=== PATIENT | male | born 1955 | race Caucasian/White ===

== ENCOUNTER 2017-10-27 20:59 | Emergency (ER) | payer SELFPAY ==
[~2017-10-27] VITALS: Ht 180.3 cm; Wt 96.0 kg
[2017-10-27 21:07] VITALS: BP 123/70; PULSE 110; RESP 20; TEMP 98.4; O2SAT 91
[2017-10-27] MEDS ORDERED: methylPREDNISolone SOD SUCC 125 MG/2 ML VIAL IV PUSH ONE (21:15)
[2017-10-27] MEDS ORDERED: SODIUM CHLORIDE 0.9% FLUSH 10 ML FLUSH IVF PRN (21:15)
--- NOTE | 2017-10-27 21:19 | PD ---
HPI Chief Complaint: Shortness of breath Time Seen by Provider: 21:09 Travel History International Travel<30 days: No Contact w/Intl Traveler<30days: No Traveled to known affect area: No History of Present Illness HPI The patient is a 62-year-old male who presents to the emergency department via EMS for shortness of breath. The patient recently relocated from [place] to [place], [place], and then [place], [place]. The patient has a history of COPD and CHF, was on oxygen via nasal cannula intermittently during the day and mostly at night when he was located in [place]. However, when he moved to [place] his oxygen prescription did not transfer. The patient states his baseline oxygen levels approximately 84% on room air during the day. He does note increasing shortness of breath the last several days associated with dry mostly nonproductive cough. He denies any significant edema to lower extremities or recent weight gain. He denies any known history of pulmonary embolism or DVT. He denies any recent hospitalizations, prolonged travel, or surgery in the last 3 months. He does have a history of previous intubation for COPD. He denies any fever, chills, or sweats. The patient is currently followed by his primary physician, Dr. summers as a med, however, does not have oxygen at home currently. Symptoms are moderate. PFSH Past Medical History Narrative Medical Hypertension, hyperlipidemia, diabetes, CAD, COPD, CHF, spinal stenosis with chronic back pain Past Surgical History Narrative Surgical Bilateral knee surgery, coronary stent Social History Tobacco Use: Yes Allergies-Medications (Allergen,Severity, Reaction): Coded Allergies: No Known Allergies (Unverified , 10/27/17) Review of Systems Except as stated in HPI: all other systems reviewed are Neg HENT: No: Lightheadedness Cardiovascular: Positive: Dyspnea on exertion, No: Chest Pain or Discomfort Respiratory: Positive: Cough, Shortness of Breath, Wheezing Gastrointestinal: No: Nausea, Vomiting, Abdominal Pain Musculoskeletal: No: Edema Physical Exam Narrative GENERAL: Awake, alert, pleasant 62-year-old male who appears his stated age and is in mild respiratory distress SKIN: Focused skin assessment warm/dry. HEAD: Atraumatic. Normocephalic. EYES: The patient is wearing glasses. ENT: No nasal bleeding or discharge. Mucous membranes pink and moist. NECK: Trachea midline. No JVD. CARDIOVASCULAR: Regular, tachycardic with a heart rate of 109. RESPIRATORY: Mild tachypnea with a respiratory rate of 24. Prolonged expiratory phase with scattered wheeze. GASTROINTESTINAL: Abdomen soft, non-tender, nondistended. No rebound tenderness. MUSCULOSKELETAL: No obvious deformities. No clubbing. No cyanosis. No edema. NEUROLOGICAL: Awake and alert. No obvious cranial nerve deficits. Motor grossly within normal limits. Normal speech. Nonfocal. PSYCHIATRIC: Appropriate mood and affect; insight and judgment normal. Data Data Last Documented VS Vital Signs Date Time Temp Pulse Resp B/P (MAP) Pulse Ox O2 Delivery O2 Flow Rate FiO2 10/27/17 21:40 92 Nasal Cannula 4.00 10/27/17 21:07 98.4 110 20 123/70 (87) Orders Orders Complete Blood Count With Diff (10/27/17 21:09) Comprehensive Metabolic Panel (10/27/17 21:09) B-Type Natriuretic Peptide (10/27/17 21:09) Act Partial Throm Time (Ptt) (10/27/17 21:09) Prothrombin Time / Inr (Pt) (10/27/17 21:09) Magnesium (Mg) (10/27/17 21:09) Ckmb (Isoenzyme) Profile (10/27/17 21:09) Troponin I (10/27/17 21:09) Iv Access Insert/Monitor (10/27/17 21:09) Electrocardiogram (10/27/17 21:09) Ecg Monitoring (10/27/17 21:09) Oximetry (10/27/17 21:09) Oxygen Administration (10/27/17 21:09) Chest, Single Ap (10/27/17 21:09) Sodium Chloride 0.9% Flush (Ns Flush) (10/27/17 21:15) Methylprednisolone So Succ Inj (Solumedr (10/27/17 21:15) Albuterol-Ipratropium Neb (Duoneb Neb) (10/27/17 21:15) CKMB (10/27/17 21:20) CKMB% (10/27/17 21:20) Labs Laboratory Tests Test 10/27/17 21:20 White Blood Count 9.7 TH/MM3 Red Blood Count 4.65 MIL/MM3 Hemoglobin 14.1 GM/DL Hematocrit 42.4 % Mean Corpuscular Volume 91.2 FL Mean Corpuscular Hemoglobin 30.3 PG Mean Corpuscular Hemoglobin Concent 33.2 % Red Cell Distribution Width 14.5 % Platelet Count 213 TH/MM3 Mean Platelet Volume 9.4 FL Neutrophils (%) (Auto) 76.9 % Lymphocytes (%) (Auto) 7.5 % Monocytes (%) (Auto) 14.1 % Eosinophils (%) (Auto) 0.7 % Basophils (%) (Auto) 0.8 % Neutrophils # (Auto) 7.4 TH/MM3 Lymphocytes # (Auto) 0.7 TH/MM3 Monocytes # (Auto) 1.4 TH/MM3 Eosinophils # (Auto) 0.1 TH/MM3 Basophils # (Auto) 0.1 TH/MM3 CBC Comment DIFF FINAL Differential Comment Prothrombin Time 10.8 SEC Prothromb Time International Ratio 1.1 RATIO Activated Partial Thromboplast Time 27.2 SEC Blood Urea Nitrogen 40 MG/DL Creatinine 1.94 MG/DL Random Glucose 140 MG/DL Total Protein 7.6 GM/DL Albumin 4.1 GM/DL Calcium Level 9.1 MG/DL Magnesium Level 2.0 MG/DL Alkaline Phosphatase 78 U/L Aspartate Amino Transf (AST/SGOT) 14 U/L Alanine Aminotransferase (ALT/SGPT) 12 U/L Total Bilirubin 0.2 MG/DL Sodium Level 141 MEQ/L Potassium Level 4.9 MEQ/L Chloride Level 102 MEQ/L Carbon Dioxide Level 31.7 MEQ/L Anion Gap 7 MEQ/L Estimat Glomerular Filtration Rate 35 ML/MIN Total Creatine Kinase 422 U/L Creatine Kinase MB 1.7 NG/ML Creatine Kinase MB % 0.4 % Troponin I LESS THAN 0.02 NG/ML B-Type Natriuretic Peptide 60 PG/ML MDM Medical Decision Making Medical Screen Exam Complete: Yes Emergency Medical Condition: Yes Medical Record Reviewed: Yes Interpretation(s) EKG reveals sinus tachycardia with heart rate of 109. RSR prime in V1. Q-wave noted in lead II, III, and aVF. Last Impressions Chest X-Ray 10/27/172108 Signed Impressions: Service Date/Time: October 21:44 - CONCLUSION: Mild bibasilar atelectasis. Andrae Curry MD Laboratory Tests Test 10/27/17 21:20 White Blood Count 9.7 TH/MM3 Red Blood Count 4.65 MIL/MM3 Hemoglobin 14.1 GM/DL Hematocrit 42.4 % Mean Corpuscular Volume 91.2 FL Mean Corpuscular Hemoglobin 30.3 PG Mean Corpuscular Hemoglobin Concent 33.2 % Red Cell Distribution Width 14.5 % Platelet Count 213 TH/MM3 Mean Platelet Volume 9.4 FL Neutrophils (%) (Auto) 76.9 % Lymphocytes (%) (Auto) 7.5 % Monocytes (%) (Auto) 14.1 % Eosinophils (%) (Auto) 0.7 % Basophils (%) (Auto) 0.8 % Neutrophils # (Auto) 7.4 TH/MM3 Lymphocytes # (Auto) 0.7 TH/MM3 Monocytes # (Auto) 1.4 TH/MM3 Eosinophils # (Auto) 0.1 TH/MM3 Basophils # (Auto) 0.1 TH/MM3 CBC Comment DIFF FINAL Differential Comment Prothrombin Time 10.8 SEC Prothromb Time International Ratio 1.1 RATIO Activated Partial Thromboplast Time 27.2 SEC Blood Urea Nitrogen 40 MG/DL Creatinine 1.94 MG/DL Random Glucose 140 MG/DL Total Protein 7.6 GM/DL Albumin 4.1 GM/DL Calcium Level 9.1 MG/DL Magnesium Level 2.0 MG/DL Alkaline Phosphatase 78 U/L Aspartate Amino Transf (AST/SGOT) 14 U/L Alanine Aminotransferase (ALT/SGPT) 12 U/L Total Bilirubin 0.2 MG/DL Sodium Level 141 MEQ/L Potassium Level 4.9 MEQ/L Chloride Level 102 MEQ/L Carbon Dioxide Level 31.7 MEQ/L Anion Gap 7 MEQ/L Estimat Glomerular Filtration Rate 35 ML/MIN Total Creatine Kinase 422 U/L Creatine Kinase MB 1.7 NG/ML Creatine Kinase MB % 0.4 % Troponin I LESS THAN 0.02 NG/ML B-Type Natriuretic Peptide 60 PG/ML Differential Diagnosis Differential diagnosis includes COPD exacerbation, bronchitis, pneumonia, pulmonary embolism, acute coronary syndrome, congestive heart failure, pulmonary edema, pleural effusion. Narrative Course IV was established, labs are drawn and sent, the patient was placed on cardiac telemetry monitoring and continuous pulse oximetry monitoring. Chest x-ray is obtained. EKG was ordered and interpreted. The patient was administered Solu- Medrol 125 mg intravenously duo nebs 3. Chest x-ray reveals bibasilar atelectasis, otherwise unremarkable. Creatinine is mildly elevated at 1.94, patient does state he has a history of mild kidney disease, does not know his baseline creatinine. Patient symptomatically felt better after oxygen and duo nebs. I had a discussion with the patient regarding admission for his hypoxia with his COPD exacerbation. However, the patient's daughter who is at bedside states the patient has an appointment with his primary physician, Dr. Perry Millard , tomorrow at 11:30 AM. I recommended admission, however, patient would prefer to be discharged. I will write for prednisone, Zithromax, and albuterol nebulizers. He does have a nebulizer machine at home. He does agree to return if his symptoms worsen or progress. Diagnosis Primary Impression: COPD exacerbation Additional Impression: Hypoxia Patient Instructions: General Instructions Additional Instructions: Please provide the patient a copy of his x-ray results and lab results at discharge. Return immediately if symptoms worsen or progress or you change your mind regarding admission. Follow-up with her doctor tomorrow as scheduled to obtain home oxygen. Med/Other Pt SpecificInfo: Prescription(s) given Scripts Albuterol Neb (Albuterol Neb) 2.5 Mg/3 Ml Neb 2.5 MG NEB Q4HR NEB Y for SHORTNESS OF BREATH, #60 NEBULE 0 Refills Prov: Angel Luis Sanderson MD 10/27/17 Prednisone (Prednisone) 20 Mg Tab 40 MG PO DAILY for 5 Days, #10 TAB 0 Refills Take 40 mg (2 tablets) daily for 5 days Prov: Angel Luis Sanderson MD 10/27/17 Azithromycin (Zithromax Z-Rupesh) 250 Mg Dspk 250 MG PO DIRECTED for Infection, #1 DSPK 0 Refills 500 MG (2 tabs) day 1, then 1 tab days 2-5. Prov: Angel Luis Sanderson MD 10/27/17 Disposition: 01 DISCHARGE HOME Condition: Stable Angel Luis Sanderson MD Oct 27, 2017 21:19
[2017-10-27 21:30] VITALS: BP 111/85; PULSE 104; RESP 20; O2SAT 91
[2017-10-27 21:40] VITALS: O2SAT 92
[2017-10-27] MEDS: RESP: ALBUTEROL 2.5 MG/IPRATROPIUM 0.5 MG NEB (SCH) INH ×2 (21:40→21:41)
[2017-10-27 22:01] LABS: AUTOMATED NEUTROPHIL # 7.4 TH/MM3 (1.8-7.7); BASOPHIL # 0.1 TH/MM3 (0-0.2); BASOPHIL % 0.8 % (0.0-2.0); EOSINOPHIL # 0.1 TH/MM3 (0-0.4); EOSINOPHIL % 0.7 % (0.0-4.0); HEMATOCRIT 42.4 % (39.0-51.0); HEMOGLOBIN 14.1 GM/DL (13.0-17.0); LYMPH % 7.5 % (9.0-44.0); LYMPHOCYTE # 0.7 TH/MM3 (1.0-4.8); MEAN CELL VOLUME 91.2 FL (80.0-100.0); MEAN CORPUSCULAR HEMOGLOBIN 30.3 PG (27.0-34.0); MEAN CORPUSCULAR HGB CONC 33.2 % (32.0-36.0); MEAN PLATELET VOLUME 9.4 FL (7.0-11.0); MONO % 14.1 % (0.0-8.0); MONOCYTE # 1.4 TH/MM3 (0-0.9); NEUT % 76.9 % (16.0-70.0); PLATELET COUNT 213 TH/MM3 (150-450); RED BLOOD COUNT 4.65 MIL/MM3 (4.50-5.90); RED CELL DISTRIBUTION WIDTH 14.5 % (11.6-17.2); WHITE BLOOD COUNT 9.7 TH/MM3 (4.0-11.0)
--- NOTE | 2017-10-27 22:10 | RADRPT ---
EXAM DATE/TIME: 10/27/2017 21:44 [facility] COMPARISON: No previous studies available for comparison. INDICATIONS : Short of breath. MEDICAL HISTORY : Cerebrovascular disease. Congestive heart failure. SURGICAL HISTORY : None. ENCOUNTER: Initial ACUITY: 2 days PAIN SCORE: 0/10 LOCATION: Bilateral chest FINDINGS: There is mild atelectasis at both bases. No pleural effusion. No pneumothorax. Heart size upper limit s of normal. CONCLUSION: Mild bibasilar atelectasis. Andrae Curry MD on October 27, 2017 at 22:07 Board Certified Radiologist. This report was verified electronically.
[2017-10-27 22:17] LABS: INTERNATIONAL NORMALIZED RATIO 1.1 RATIO; PROTHROMBIN TIME - PATIENT 10.8 SEC (9.8-11.6)
[2017-10-27 22:19] LABS: ALBUMIN 4.1 GM/DL (3.4-5.0); AST (GOT) 14 U/L (15-37); BICARBONATE 31.7 MEQ/L (21.0-32.0); BLOOD UREA NITROGEN 40 MG/DL (7-18); CALCIUM 9.1 MG/DL (8.5-10.1); CHLORIDE 102 MEQ/L (98-107); CREATININE 1.94 MG/DL (0.60-1.30); GLOMERULAR FILTRATION RATE 35 ML/MIN (>89); GLUCOSE,RANDOM 140 MG/DL (74-106); SODIUM (NA) 141 MEQ/L (136-145)
[2017-10-27 22:20] LABS: ALT (GPT) 12 U/L (12-78)
[2017-10-27 22:24] LABS: ALKALINE PHOSPHATASE 78 U/L (45-117); TOTAL BILIRUBIN ADULT 0.2 MG/DL (0.2-1.0); TOTAL PROTEIN 7.6 GM/DL (6.4-8.2); TROPONIN I LESS THAN 0.02 NG/ML (0.02-0.05)
[2017-10-27] MEDS ORDERED: TIZA4TAB PO (22:39)
[2017-10-27] MEDS ORDERED: HYDR-3583 PO (22:39)
[2017-10-27] MEDS ORDERED: MELO15TA20 PO (22:39)
[2017-10-27] MEDS ORDERED: LISI40TA PO (22:39)
[2017-10-27] MEDS ORDERED: METF1000 PO (22:39)
[2017-10-27] MEDS ORDERED: FURO80TA PO (22:39)
[2017-10-27] MEDS ORDERED: MORP1TAB25 PO (22:39)
[2017-10-27] MEDS ORDERED: AMLO10TA2 PO (22:39)
[2017-10-27] MEDS ORDERED: TAMS0.4C4 PO (22:39)
[2017-10-27] MEDS ORDERED: GABA300C5 PO (22:39)
[2017-10-27] MEDS ORDERED: METO100T PO (22:39)
[2017-10-27] MEDS ORDERED: PRED20 PO (22:41)
[2017-10-27] MEDS ORDERED: ZITHTAB PO (22:41)
[2017-10-27] MEDS ORDERED: ALBU0.08 NEB (22:41)
[2017-10-27 22:42] VITALS: BP 120/64
--- NOTE | 2017-10-28 13:28 | EKG ---
Date Performed: 10/27/2017 Time Performed: 21:12:23 PTAGE: 62 years EKG: SINUS TACHYCARDIA POSSIBLE LEFT ATRIAL ENLARGEMENT PATTERN CONSISTENT WITH PULMONARY DISEAS E POSSIBLE RIGHT VENTRICULAR CONDUCTION DELAY LEFT VENTRICULAR HYPERTROPHY AND ST-T CHANGE INFERIOR M YOCARDIAL INFARCTION NO PREVIOUS TRACING DOCTOR: Todd Steiner Interpretating Date/Time 10/28/2017 13:27:54
== END 2017-10-27 22:58 | disposition home or self-care (01) ==
LOC: NEPC 20:59
DX: J44.1 Chronic obstructive pulmonary disease with (acute) exacerbation (principal); R09.02 Hypoxemia; R00.0 Tachycardia, unspecified; I51.7 Cardiomegaly; I25.2 Old myocardial infarction; I10 Essential (primary) hypertension; E78.5 Hyperlipidemia, unspecified; E11.9 Type 2 diabetes mellitus without complications; I25.10 Atherosclerotic heart disease of native coronary artery without angina pectoris
CPT/HCPCS: 71045; 80053; 82550; 82552; 83735; 83880; 84484; 85025; 85610; 85730; 93005; 94640; 94664; 96374; 99285; J2930

== ENCOUNTER 2017-10-30 13:42 | Inpatient (IN) | payer SELFPAY ==
[2017-10-30] VITALS (15 sets, daily range): BP systolic 98–128; BP diastolic 53–59; PULSE 62–77; RESP 16–40; TEMP 97.8–99.1; O2SAT 90–99
[~2017-10-30] VITALS: Ht 180.3 cm; Wt 101.9 kg
[~2017-10-30 13:42] MED LIST: ALBU0.08 NEB; AMLO10TA2 PO; FURO80TA PO; GABA300C5 PO; HYDR-3583 PO; LISI40TA PO; MELO15TA20 PO; METF1000 PO; METO100T PO; MORP1TAB25 PO; PRED20 PO; TAMS0.4C4 PO; TIZA4TAB PO; ZITHTAB PO
[2017-10-30] MEDS ORDERED: RESP: ALBUTEROL 2.5 MG/IPRATROPIUM 0.5 MG NEB (SCH) INH (13:45)
[2017-10-30] MEDS ORDERED: methylPREDNISolone SOD SUCC 125 MG/2 ML VIAL IV PUSH ONE (13:45)
[2017-10-30] MEDS ORDERED: SODIUM CHLORIDE 0.9% FLUSH 10 ML FLUSH IVF PRN (13:45)
[2017-10-30 14:06] LABS: AUTOMATED NEUTROPHIL # 14.8 TH/MM3 (1.8-7.7); BASOPHIL # 0.1 TH/MM3 (0-0.2); BASOPHIL % 0.3 % (0.0-2.0); HEMATOCRIT 43.5 % (39.0-51.0); HEMOGLOBIN 13.8 GM/DL (13.0-17.0); LYMPH % 4.6 % (9.0-44.0); LYMPHOCYTE # 0.8 TH/MM3 (1.0-4.8); MEAN CELL VOLUME 92.9 FL (80.0-100.0); MEAN CORPUSCULAR HEMOGLOBIN 29.4 PG (27.0-34.0); MEAN CORPUSCULAR HGB CONC 31.6 % (32.0-36.0); MEAN PLATELET VOLUME 8.9 FL (7.0-11.0); MONO % 9.1 % (0.0-8.0); MONOCYTE # 1.6 TH/MM3 (0-0.9); PLATELET COUNT 238 TH/MM3 (150-450); RED BLOOD COUNT 4.69 MIL/MM3 (4.50-5.90); RED CELL DISTRIBUTION WIDTH 14.7 % (11.6-17.2); WHITE BLOOD COUNT 17.2 TH/MM3 (4.0-11.0)
--- NOTE | 2017-10-30 14:24 | PD ---
HPI . Altered mental status Chief Complaint: Respiratory Distress Time Seen by Provider: 13:44 Travel History International Travel<30 days: No Contact w/Intl Traveler<30days: No Traveled to known affect area: No History of Present Illness HPI This patient is brought to us by [facility] with altered mental status. He was recently seen here and diagnosed with bronchitis and discharged on Zithromax, prednisone and albuterol. That was on October 27. Yesterday, family started noticing change in mental status. He started having urinary incontinence. His symptoms progressed and worsened causing them to call [facility] today. The patient is unable to give any meaningful history. The patient's daughter is now at the bedside and reports that the patient has a DNR. COUNT INCLUDES THE [facility] Past Medical History Cardiac Catheterization: Yes (1 stent ) Cardiovascular Problems: Yes High Cholesterol: Yes Congestive Heart Failure: Yes COPD: Yes Coronary Artery Disease: Yes Diabetes: Yes Patient Takes Glucophage: No Diminished Hearing: No Hypertension: Yes Respiratory: Yes Triglycerides - High: Yes Tetanus Vaccination: Unknown Past Surgical History Joint Replacement: Yes (Agustín knees) Social History Alcohol Use: No Tobacco Use: Yes (1 PPD) Substance Use: No Allergies-Medications (Allergen,Severity, Reaction): Coded Allergies: No Known Allergies (Unverified , 10/30/17) Reported Meds & Prescriptions Reported Meds & Active Scripts Active Albuterol Neb (Albuterol Sulfate) 2.5 Mg/3 Ml Neb 2.5 Mg NEB Q4HR NEB PRN Prednisone 20 Mg Tab 40 Mg PO DAILY 5 Days Take 40 mg (2 tablets) daily for 5 days Zithromax Z-Rupesh (Azithromycin) 250 Mg Dspk 250 Mg PO DIRECTED 500 MG (2 tabs) day 1, then 1 tab days 2-5. Reported Furosemide 80 Mg Tab 120 Mg PO DAILY Gabapentin 300 Mg Cap 300 Mg PO TID Tizanidine (Tizanidine HCl) 4 Mg Tab 4 Mg PO TID Meloxicam 15 Mg Tab 15 Mg PO DAILY Tamsulosin (Tamsulosin HCl) 0.4 Mg Cap 0.4 Mg PO DAILY Hydrocodone-Acetamin 10-325 mg (Hydrocodone/Acetaminophen) 10 Mg-325 Mg Tablet 1 Tab PO Q6HR PRN Metformin (Metformin HCl) 1,000 Mg Tab 1,000 Mg PO DAILY Amlodipine (Amlodipine Besylate) 10 Mg Tab 10 Mg PO DAILY Metoprolol Tartrate 100 Mg Tab 100 Mg PO BID Morphine ER (Morphine Sulfate) 30 Mg Tab 30 Mg PO BID Lisinopril 40 Mg Tab 40 Mg PO DAILY Review of Systems ROS Limitations: Altered Mental Status Physical Exam Narrative GENERAL: Patient is not verbal. SKIN: warm/dry. Normal color. HEAD: Normocephalic. Atraumatic. EYES: Pupils equal and round. No scleral icterus. No injection or drainage. ENT: No nasal bleeding or discharge. Mucous membranes pink and moist. NECK: Supple. CARDIOVASCULAR: Regular rate and rhythm. RESPIRATORY: He is using accessory muscles to breathe. His breath sounds are markedly diminished. GASTROINTESTINAL: Abdomen soft. Nontender. Bowel sounds present. Nondistended. MUSCULOSKELETAL: No obvious deformities. NEUROLOGICAL: No obvious lateralizing neurological deficits PSYCHIATRIC: Unable to assess Data Data Last Documented VS Vital Signs Date Time Temp Pulse Resp B/P (MAP) Pulse Ox O2 Delivery O2 Flow Rate FiO2 10/30/17 14:30 94 40 10/30/17 14:23 BiPAP 10/30/17 14:00 8.00 10/30/17 13:52 40 10/30/17 13:49 99.1 72 106/55 (72) Orders Orders Complete Blood Count With Diff (10/30/17 13:45) Comprehensive Metabolic Panel (10/30/17 13:45) B-Type Natriuretic Peptide (10/30/17 13:45) Magnesium (Mg) (10/30/17 13:45) Troponin I (10/30/17 13:45) Arterial Blood Gas (Abg) (10/30/17 13:45) Blood Culture (10/30/17 13:45) Iv Access Insert/Monitor (10/30/17 13:45) Electrocardiogram (10/30/17 13:45) Ecg Monitoring (10/30/17 13:45) Oximetry (10/30/17 13:45) Oxygen Administration (10/30/17 13:45) Chest, Single Ap (10/30/17 13:45) Sodium Chloride 0.9% Flush (Ns Flush) (10/30/17 13:45) Methylprednisolone So Succ Inj (Solumedr (10/30/17 13:45) Albuterol-Ipratropium Neb (Duoneb Neb) (10/30/17 13:45) Lactic Acid (10/30/17 13:45) Resp Bipap / Cpap Non Invas Vt (10/30/17 ) Etomidate Inj (Amidate Inj) (10/30/17 14:30) Succinylcholine Inj (Quelicin Inj) (10/30/17 14:30) Code Status (10/30/17 14:50) Insulin Human Regular Inj (Novolin R Inj (10/30/17 16:15) Dextrose 50% In Sherlyn (Syr) Inj (D50w (Syr (10/30/17 16:15) Sodium Bicarbonate 8.4% Inj (Sodium Bica (10/30/17 16:15) Calcium Chloride Inj (Calcium Chloride I (10/30/17 16:15) Basic Metabolic Panel (Bmp) (10/30/17 17:00) Arterial Blood Gas (Abg) (10/30/17 17:00) Consult Nephrology (10/30/17 ) Admit Order (Ed Use Only) (10/30/17 ) Wire Bender / Telemetry [id number].[id number] (10/30/17 16:46) Vital Signs (Adult) Q4H (10/30/17 16:46) Diet Npo (10/30/17 Dinner) Activity Bed Rest (10/30/17 16:46) Notify Dr: Other (10/30/17 16:46) Sodium Polysty Sulfate Liq (Kayexalate L (10/30/17 17:00) Labs Laboratory Tests Test 10/30/17 13:50 10/30/17 14:06 10/30/17 15:00 White Blood Count 17.2 TH/MM3 Red Blood Count 4.69 MIL/MM3 Hemoglobin 13.8 GM/DL Hematocrit 43.5 % Mean Corpuscular Volume 92.9 FL Mean Corpuscular Hemoglobin 29.4 PG Mean Corpuscular Hemoglobin Concent 31.6 % Red Cell Distribution Width 14.7 % Platelet Count 238 TH/MM3 Mean Platelet Volume 8.9 FL Neutrophils (%) (Auto) 86.0 % Lymphocytes (%) (Auto) 4.6 % Monocytes (%) (Auto) 9.1 % Eosinophils (%) (Auto) 0.0 % Basophils (%) (Auto) 0.3 % Neutrophils # (Auto) 14.8 TH/MM3 Lymphocytes # (Auto) 0.8 TH/MM3 Monocytes # (Auto) 1.6 TH/MM3 Eosinophils # (Auto) 0.0 TH/MM3 Basophils # (Auto) 0.1 TH/MM3 CBC Comment DIFF FINAL Differential Comment Lactic Acid Level 0.9 mmol/L B-Type Natriuretic Peptide 36 PG/ML Blood Gas Puncture Site RT BRACHIAL Blood Gas Patient Temperature 98.6 Blood Gas HCO3 30 mmol/L Blood Gas Base Excess 0.8 mmol/L Blood Gas Oxygen Saturation 96 % Arterial Blood pH 7.12 Arterial Blood Partial Pressure CO2 96 mmHg Arterial Blood Partial Pressure O2 131 mmHG Arterial Blood Oxygen Content 18.7 Vol % Arterial Blood Carboxyhemoglobin 0.9 % Arterial Blood Methemoglobin 1.1 % Blood Gas Hemoglobin 13.7 G/DL Oxygen Delivery Device AEROSOL MASK Blood Gas Liter Flow 7 L/M Blood Gas Inspired Oxygen 50 % Blood Urea Nitrogen 89 MG/DL Creatinine 3.63 MG/DL Random Glucose 152 MG/DL Total Protein 7.7 GM/DL Albumin 3.7 GM/DL Calcium Level 8.2 MG/DL Magnesium Level 2.7 MG/DL Alkaline Phosphatase 71 U/L Aspartate Amino Transf (AST/SGOT) 19 U/L Alanine Aminotransferase (ALT/SGPT) 17 U/L Total Bilirubin 0.5 MG/DL Sodium Level 139 MEQ/L Potassium Level 7.5 MEQ/L Chloride Level 104 MEQ/L Carbon Dioxide Level 29.6 MEQ/L Anion Gap 5 MEQ/L Estimat Glomerular Filtration Rate 17 ML/MIN Troponin I LESS THAN 0.02 NG/ML MDM Medical Decision Making Medical Screen Exam Complete: Yes Emergency Medical Condition: Yes Medical Record Reviewed: Yes (Medical history of COPD, CHF, HTN, HL, DM, CAD status post a stent.) Interpretation(s) EKG shows a sinus rhythm with no acute ischemic changes Differential Diagnosis Differential diagnosis of dyspnea includes but is not limited to congestive heart failure, pneumonia, wheezing, pneumothorax, pulmonary embolism Narrative Course This patient presented to us by [facility] in respiratory distress and altered mental status. A blood gas was ordered. He is in respiratory failure with CO2 retention and a PCO2 of 98. I was explaining to the daughter that we needed to intubate the patient when she told me that he has a DNR. She is currently giving information to her sister so that she can fax us his DNR. In the meantime, he is receiving stacked nebs. He has had Solu-Medrol. We will attempt BiPAP. I did receive a fax from his daughter confirming that she is his healthcare POA. This has been placed in his chart. The daughter at the bedside is calling her sister for further documentation regarding the DNR. The patient is improving with BiPAP. Last Impressions Chest X-Ray 10/30/17 1345 Signed Impressions: Service Date/Time: Monday, October 30, 2017 13:49 - CONCLUSION: Cardiomegaly. Andrae Burgess MD ABG Test 10/30/17 14:06 Arterial Blood Carboxyhemoglobin 0.9 % Arterial Blood Methemoglobin 1.1 % Arterial Blood Oxygen Content 18.7 Vol % Arterial Blood Partial Pressure CO2 96 mmHg *H Arterial Blood Partial Pressure O2 131 mmHG H Arterial Blood pH 7.12 *L Blood Gas Base Excess 0.8 mmol/L Blood Gas HCO3 30 mmol/L H Blood Gas Hemoglobin 13.7 G/DL Blood Gas Inspired Oxygen 50 % Blood Gas Liter Flow 7 L/M Blood Gas Oxygen Saturation 96 % Oxygen Delivery Device AEROSOL MASK BMP Diagram 10/30/17 15:00 Total Protein 7.7, Albumin 3.7, Calcium Level 8.2 L, Magnesium Level 2.7 H, Alkaline Phosphatase 71, Aspartate Amino Transf (AST/SGOT) 19, Alanine Aminotransferase (ALT/SGPT) 17, Total Bilirubin 0.5 The geoscience laboratory technician assures me that his specimen is not hemolyzed. He does have renal failure so this potassium level makes sense. I have subsequently ordered insulin and D50, bicarb, Kayexalate. He has already received nebulizer treatments. CBC Diagram 10/30/17 13:50 Lactic acid level 0.9 BNP 36. Troponin less than 0.02. The patient's daughters will discuss whether or not they feel that he would want dialysis. They will let me know shortly. The family reports that they would want at least short-term dialysis. I will place a stat consult for nephrology. Critical Care Narrative Aggregate critical care time was 45 minutes. Time to perform other separately billable procedures was not included in the critical care time. My time did not include minutes spent treating any other patients simultaneously or on activities that did not directly contribute to the patient's treatment. The services I provided to this patient were to treat and/or prevent clinically significant deterioration due to respiratory failure, hyperkalemia I provided critical care services requiring my management, as noted below: Chart data review, documentation time, medication orders and management, vital sign assessments/reviewing monitor data, ordering and reviewing lab tests, ordering and interpreting/reviewing x-rays and diagnostic studies, care of the patient and discussion of the patient with the admitting physicians Physician Communication Physician Communication Dr. Armenta Diagnosis Primary Impression: Altered mental status Qualified Codes: R40.4 - Transient alteration of awareness Additional Impressions: Respiratory failure Qualified Codes: J96.02 - Acute respiratory failure with hypercapnia DNR (do not resuscitate) Acute on chronic renal failure Qualified Codes: N17.9 - Acute kidney failure, unspecified; N18.4 - Chronic kidney disease, stage 4 (severe) Hyperkalemia Admitting Information Admitting Physician Requests: Admit Condition: Serious Amie Sanchez MD Oct 30, 2017 14:24
[2017-10-30] MEDS ORDERED: SUCCINYLCHOLINE CHLORIDE 100 MG/5 ML SYRINGE IV PUSH ONE (14:30)
[2017-10-30] MEDS ORDERED: ETOMIDATE 20 MG/10 ML VIAL IV PUSH ONE (14:30)
--- NOTE | 2017-10-30 15:05 | RADRPT ---
EXAM DATE/TIME: 10/30/2017 13:49 [facility] COMPARISON: CHEST SINGLE AP, October 27, 2017, 21:44. INDICATIONS : Short of breath MEDICAL HISTORY : Cerebrovascular disease. Congestive heart failure SURGICAL HISTORY : None. ENCOUNTER: Initial ACUITY: 1 day PAIN SCORE: Non-responsive. LOCATION: chest FINDINGS: A single view of the chest demonstrates the lungs to be symmetrically aerated without evidence of mas s, infiltrate or effusion. The heart size is mildly enlarged. Osseous structures are intact. CONCLUSION: Cardiomegaly. Andrae Burgess MD on October 30, 2017 at 15:02 Board Certified Radiologist. This report was verified electronically.
[2017-10-30 15:57] LABS: ALBUMIN 3.7 GM/DL (3.4-5.0); ALKALINE PHOSPHATASE 71 U/L (45-117); ALT (GPT) 17 U/L (12-78); AST (GOT) 19 U/L (15-37); BICARBONATE 29.6 MEQ/L (21.0-32.0); BLOOD UREA NITROGEN 89 MG/DL (7-18); CALCIUM 8.2 MG/DL (8.5-10.1); CHLORIDE 104 MEQ/L (98-107); CREATININE 3.63 MG/DL (0.60-1.30); GLOMERULAR FILTRATION RATE 17 ML/MIN (>89); GLUCOSE,RANDOM 152 MG/DL (74-106); MAGNESIUM 2.7 MG/DL (1.5-2.5); SODIUM (NA) 139 MEQ/L (136-145); TOTAL BILIRUBIN ADULT 0.5 MG/DL (0.2-1.0); TOTAL PROTEIN 7.7 GM/DL (6.4-8.2); TROPONIN I LESS THAN 0.02 NG/ML (0.02-0.05)
[2017-10-30] MEDS ORDERED: INSULIN HUMAN REGULAR 1,000 UNITS/10 ML VIAL IV PUSH ONE (16:15)
[2017-10-30] MEDS ORDERED: CALCIUM CHLORIDE 10% SOLN 1 GRAM/10 ML SYR IV PUSH ONE (16:15)
[2017-10-30] MEDS ORDERED: SODIUM BICARBONATE 8.4% INJ 50 MEQ/50 ML SYR IV PUSH ONE (16:15)
[2017-10-30] MEDS ORDERED: SODIUM POLYSTYRENE SULFONATE 30 GM/120 ML ENEMA RECTAL ONE ×2 (16:15→16:45)
[2017-10-30] MEDS ORDERED: DEXTROSE 50% IN WATER 50 ML SYRINGE IV PUSH ONE (16:15)
[2017-10-30] MEDS ORDERED: SODIUM POLYSTYRENE SULFONATE SUSP 15 GM/60 ML CUP RECTAL ONE ×2 (17:00→17:15)
[2017-10-30] MEDS ORDERED: CHLORHEXIDINE GLUCONATE 2 % 1 PACK (2 CLOTHS) TOP PRN (17:15)
[2017-10-30] MEDS ORDERED: NURSING INFORMATION XX SCH (17:15)
--- NOTE | 2017-10-30 17:24 | HHI.HP ---
HPI Service Critical Care Medicine Primary Care Physician Unknown Admission Diagnosis Acute resp failure, acute on chronic RF, hyperkalemia Diagnosis: Chief Complaint: Altered mental status and respiratory distress Travel History International Travel<30 Days: No Contact w/Intl Traveler <30 Da: No Traveled to Known Affected Are: No History of Present Illness 62-year-old gentleman with history of COPD on home O2, congestive heart failure , hypertension, CAD, spinal stenosis now now brought to the emergency room with altered mental status and respiratory distress. Patient presented on October 27 to [facility] emergency with worsening shortness of breath. He was found to have acute COPD exacerbation but patient declined admission. He was treated with prednisone and azithromycin and bronchodilators and he was discharged home. Over the last few days patient had worsening shortness of breath associated with cough and since yesterday patient became increasingly lethargic. Over the night patient became very poorly responsive therefore today daughter called EVAC patient was brought to the emergency room. On ED arrival patient was unresponsive. Blood gas done showed severe respiratory acidosis. Moreover, patient was found to have acute hyperkalemia and acute kidney injury, potassium up to 7.5. Patient was treated with Solu-Medrol, DuoNeb, insulin and dextrose, Kayexalate, calcium gluconate and bicarbonate. Stat consult for nephrology was placed in ED physician is waiting for callback. [facility] was consulted for ICU admission. Patient was not intubated because he has a standing DNR. Patient was immediately seen in the emergency room, daughter present at bedside. Patient is on BiPAP, arousable, following some commands. Per daughter, patient has a standing DNR/DNI and her sister who has POA was contacted by emergency room physician to complete the DNR form. Review of Systems ROS Limitations: Altered Mental Status Past Family Social History Allergies: Coded Allergies: No Known Allergies (Unverified , 10/30/17) Past Medical History COPD on home O2, congestive heart failure, hypertension, CAD, spinal stenosis Past Surgical History Unobtainable due to patient's mental status Reported Medications Reported Meds & Active Scripts Active Albuterol Neb (Albuterol Sulfate) 2.5 Mg/3 Ml Neb 2.5 Mg NEB Q4HR NEB PRN Prednisone 20 Mg Tab 40 Mg PO DAILY 5 Days Take 40 mg (2 tablets) daily for 5 days Zithromax Z-Rupesh (Azithromycin) 250 Mg Dspk 250 Mg PO DIRECTED 500 MG (2 tabs) day 1, then 1 tab days 2-5. Reported Furosemide 80 Mg Tab 120 Mg PO DAILY Gabapentin 300 Mg Cap 300 Mg PO TID Tizanidine (Tizanidine HCl) 4 Mg Tab 4 Mg PO TID Meloxicam 15 Mg Tab 15 Mg PO DAILY Tamsulosin (Tamsulosin HCl) 0.4 Mg Cap 0.4 Mg PO DAILY Hydrocodone-Acetamin 10-325 mg (Hydrocodone/Acetaminophen) 10 Mg-325 Mg Tablet 1 Tab PO Q6HR PRN Metformin (Metformin HCl) 1,000 Mg Tab 1,000 Mg PO DAILY Amlodipine (Amlodipine Besylate) 10 Mg Tab 10 Mg PO DAILY Metoprolol Tartrate 100 Mg Tab 100 Mg PO BID Morphine ER (Morphine Sulfate) 30 Mg Tab 30 Mg PO BID Lisinopril 40 Mg Tab 40 Mg PO DAILY Active Ordered Medications Current Medications Medications (Trade) Dose Ordered Sig/Kaila Route Start Time Stop Time Status Last Admin (NS Flush) 2 ml UNSCH PRN IVF 10/30/17 13:45 Sodium Chloride 1,000 ml @ 100 mls/hr Q10H IV 10/30/17 17:13 UNV (Pepcid Inj) 20 mg Q12HR IV PUSH 10/30/17 21:00 UNV (Duoneb Neb) 1 ampule Q4HR NEB INH 10/30/17 20:00 UNV (Heparin Inj) 5,000 units Q12H SQ 10/30/17 17:15 UNV ([facility]) 1 Q361D XX 10/30/17 17:15 UNV (Chlorhexidine 2% Cloth) 3 pack Taper DAILY@04 TOP 10/31/17 04:00 10/27/18 03:59 UNV (Chlorhexidine 2% Cloth) 3 pack UNSCH PRN TOP 10/30/17 17:15 UNV (SoluMEDROL INJ) 60 mg Q6HR IV PUSH 10/30/17 18:00 UNV Azithromycin 500 mg/Sodium Chloride 250 ml @ 250 mls/hr Q24H IV 10/30/17 17:30 UNV Ceftriaxone Sodium 1000 mg/ Sodium Chloride 100 ml @ 200 mls/hr Q24H IV 10/30/17 17:30 UNV Sodium Chloride 1,000 ml @ 999 mls/hr BOLUS ONCE IV 10/30/17 17:30 10/30/17 18:30 UNV Family History Unobtainable due to patient's mental status Social History Her daughter patient was a smoker but he quit 2 weeks ago, used to drink alcohol but not anymore, no drugs Physical Exam Vital Signs Vital Signs Date Time Temp Pulse Resp B/P (MAP) Pulse Ox O2 Delivery O2 Flow Rate FiO2 10/30/17 17:00 66 28 98/53 (68) 94 BiPAP 50 10/30/17 16:00 66 30 111/53 (72) 93 BiPAP 40 10/30/17 15:00 64 20 109/56 (73) 92 BiPAP 40 10/30/17 14:30 94 40 10/30/17 14:23 BiPAP 10/30/17 14:00 62 28 104/56 (72) 97 BiPAP 40 10/30/17 14:00 Aerosol Mask 8.00 10/30/17 13:52 97 Aerosol Mask 10/30/17 13:52 40 97 Aerosol Mask 7.00 40 10/30/17 13:49 99.1 72 40 106/55 (72) 97 Physical Exam General - middle-aged gentleman, lethargic, arousable, ill-appearing HEENT - pupils equal, reactive, sclerae anicteric, neck supple, no nuchal rigidity, neck veins not distended, no carotid bruit CV - irregular S1, S2, systolic ejection murmur at the apex Chest -scattered coarse breath sounds bilateral, scattered wheezes Abdomen - soft, non-tender, non-distended, BS present, no hepatomegaly, no splenomegaly Skin - no rashes, no cyanosis, multiple tattoos Extremities - warm and well perfused, no edema, + peripheral pulses, no clubbing Neuro - lethargic but arousable, follows some commands, moves all extremities Laboratory Laboratory Tests Test 10/30/17 13:50 10/30/17 14:06 10/30/17 15:00 White Blood Count 17.2 Red Blood Count 4.69 Hemoglobin 13.8 Hematocrit 43.5 Mean Corpuscular Volume 92.9 Mean Corpuscular Hemoglobin 29.4 Mean Corpuscular Hemoglobin Concent 31.6 Red Cell Distribution Width 14.7 Platelet Count 238 Mean Platelet Volume 8.9 Neutrophils (%) (Auto) 86.0 Lymphocytes (%) (Auto) 4.6 Monocytes (%) (Auto) 9.1 Eosinophils (%) (Auto) 0.0 Basophils (%) (Auto) 0.3 Neutrophils # (Auto) 14.8 Lymphocytes # (Auto) 0.8 Monocytes # (Auto) 1.6 Eosinophils # (Auto) 0.0 Basophils # (Auto) 0.1 CBC Comment DIFF FINAL Differential Comment Lactic Acid Level 0.9 B-Type Natriuretic Peptide 36 Blood Gas Puncture Site RT BRACHIAL Blood Gas Patient Temperature 98.6 Blood Gas HCO3 30 Blood Gas Base Excess 0.8 Blood Gas Oxygen Saturation 96 Arterial Blood pH 7.12 Arterial Blood Partial Pressure CO2 96 Arterial Blood Partial Pressure O2 131 Arterial Blood Oxygen Content 18.7 Arterial Blood Carboxyhemoglobin 0.9 Arterial Blood Methemoglobin 1.1 Blood Gas Hemoglobin 13.7 Oxygen Delivery Device AEROSOL MASK Blood Gas Liter Flow 7 Blood Gas Inspired Oxygen 50 Blood Urea Nitrogen 89 Creatinine 3.63 Random Glucose 152 Total Protein 7.7 Albumin 3.7 Calcium Level 8.2 Magnesium Level 2.7 Alkaline Phosphatase 71 Aspartate Amino Transf (AST/SGOT) 19 Alanine Aminotransferase (ALT/SGPT) 17 Total Bilirubin 0.5 Sodium Level 139 Potassium Level 7.5 Chloride Level 104 Carbon Dioxide Level 29.6 Anion Gap 5 Estimat Glomerular Filtration Rate 17 Troponin I LESS THAN 0.02 Date/Time Source Procedure Growth Status 10/30/17 13:55 Blood Peripheral Aerobic Blood Culture Pending Received 10/30/17 13:55 Blood Peripheral Anaerobic Blood Culture Pending Received Result Diagram: 10/30/17 1350 10/30/17 1500 Imaging Last Impressions Chest X-Ray 10/30/17 1345 Signed Impressions: Service Date/Time: Monday, October 30, 2017 13:49 - CONCLUSION: Cardiomegaly. MD Brett Harrisi VTE Risk Assessment Caprini VTE Risk Assessment: Mod/High Risk (score >= 2) Caprini Risk Assessment Model Point Value = 1 Point Value = 2 Point Value = 3 Point Value = 5 Age 41-60 Minor surgery BMI > 25 kg/m2 Swollen legs Varicose veins or History of unexplained or recurrent spontaneous Oral contraceptives or hormone replacement Sepsis (< 1 month) Serious lung disease, including pneumonia (< 1 month) Abnormal pulmonary function Acute myocardial infarction Congestive heart failure (< 1 month) History of inflammatory bowel disease Medical patient at bed rest Age 61-74 Arthroscopic surgery Major open surgery (> 45 min) Laparoscopic surgery (> 45 min) Malignancy Confined to bed (> 72 hours) Immobilizing plaster cast Central venous access Age >= 75 History of VTE Family history of VTE Factor V Leiden Prothrombin [id number] Lupus anticoagulant Anticardiolipin antibodies Elevated serum homocysteine Heparin-induced thrombocytopenia Other congenital or acquired thrombophilia Stroke (< 1 month) Elective arthroplasty Hip, pelvis, or leg fracture Acute spinal cord injury (< 1 month) Prophylaxis Regimen Total Risk Factor Score Risk Level Prophylaxis Regimen 0-1 Low Early ambulation 2 Moderate Order ONE of the following: *Sequential Compression Device (SCD) *Heparin 5000 units SQ BID 3-4 Higher Order ONE of the following medications: *Heparin 5000 units SQ TID *Enoxaparin/Lovenox 40 mg SQ daily (WT < 150 kg, CrCl > 30 mL/min) *Enoxaparin/Lovenox 30 mg SQ daily (WT < 150 kg, CrCl > 10-29 mL/min) *Enoxaparin/Lovenox 30 mg SQ BID (WT < 150 kg, CrCl > 30 mL/min) AND/OR *Sequential Compression Device (SCD) 5 or more Highest Order ONE of the following medications: *Heparin 5000 units SQ TID (Preferred with Epidurals) *Enoxaparin/Lovenox 40 mg SQ daily (WT < 150 kg, CrCl > 30 mL/min) *Enoxaparin/Lovenox 30 mg SQ daily (WT < 150 kg, CrCl > 10-29 mL/min) *Enoxaparin/Lovenox 30 mg SQ BID (WT < 150 kg, CrCl > 30 mL/min) AND *Sequential Compression Device (SCD) Assessment and Plan Assessment and Plan 1. Acute hypercapnic respiratory failure 2. Acute COPD exacerbation 3. Acute hyperkalemia 4. Acute kidney injury 5. History of CAD with stent placement 6. History of hypertension 7. History of spinal stenosis on chronic opiates 1. Continue BiPAP, settings readjusted, BiPAP increased to 15, FiO2 decreased to 0.4 2. Start Solu-Medrol 60 mg every 6 hours and scheduled bronchodilators every 4 hours 3. Empiric ceftriaxone and azithromycin 4. Immediate nephrology consult for possible hemodialysis 5. Patient received medical management for hyperkalemia and repeat potassium at 6 PM 6. Repeat ABG now 7. Serial cardiac enzymes 8. Hold pain medication in the setting of poor mental status 9. Fluid bolus followed by IV hydration 10. Check lactic acid since patient was on metformin now has AARON 11. GI and DVT prophylaxis 12. DNR per patient's wishes expressed by daughter 13. NPO 14. Insert Toney catheter for accurate urine output measurement I spent 32 minutes of critical care time, excluding procedures, managing BiPAP, fluids, antibiotics, steroids, reviewing data and ordering labs, discussing with ED attending, nursing staff, RT, daughter present at bedside. Patient is critically ill and at high risk for further deterioration and . Ernesto Armenta MD Oct 30, 2017 17:24
[2017-10-30] MEDS ORDERED: SODIUM CHLOR 0.9% 1000 ML INJ 1,000 ML IV ONE (17:30)
[2017-10-30 18:35] LABS: CREATININE 3.72 MG/DL (0.60-1.30)
[2017-10-30] MEDS: methylPREDNISolone SOD SUCC 40 MG/1 ML VIAL IV PUSH SCH (18:39)
[2017-10-30] MEDS: HEPARIN SODIUM - SQ 10,000 UNITS/ML VIAL SQ SCH (18:40)
[2017-10-30] MEDS: RESP: ALBUTEROL 2.5 MG/IPRATROPIUM 0.5 MG NEB (SCH) INH ×2 (19:35→23:36)
[2017-10-30] MEDS: FAMOTIDINE 20 MG/2 ML VIAL IV PUSH SCH (20:11)
[2017-10-30] MEDS: AZITHROMYCIN INJ 500 MG in SODIUM CHLOR 0.9% 250 ML INJ 250 ML IV SCH (20:11)
[2017-10-30] MEDS: cefTRIAXone INJ 1,000 MG in SODIUM CHLORIDE 0.9% INJ 100 ML IV SCH (20:11)
[2017-10-30 20:52] LABS: BILIRUBIN, URINE NEG (NEG); BLOOD, URINE NEG (NEG); GLUCOSE,URINE NEG (NEG); HYALINE CAST, URINE 20 /lpf (RARE); KETONE, URINE NEG (NEG); MUCUS URINE FEW /lpf (OCC); NITRITE,URINE NEG (NEG); SQUAMOUS EPITHELIAL CELL URINE 1 /hpf (0-5); URINE COLOR YELLOW (YELLW/STRAW); URINE LEUKOCYTE ESTERASE NEG (NEG)
[2017-10-30 21:05] LABS: CREATININE, RANDOM URINE 185.1 MG/DL
[2017-10-30] MEDS ORDERED: INSULIN HUMAN REGULAR 1,000 UNITS/10 ML VIAL IV PUSH SCH (21:45)
[2017-10-30] MEDS ORDERED: DEXTROSE 50% IN WATER 50 ML VIAL(D50) IV SCH (21:45)
[2017-10-30] MEDS: SODIUM POLYSTYRENE SULFONATE SUSP 15 GM/60 ML CUP PO SCH (22:00)
[2017-10-30] MEDS: SODIUM CHLOR 0.9% 1000 ML INJ 1,000 ML IV SCH (22:21)
[2017-10-31] VITALS (29 sets, daily range): BP systolic 110–167; BP diastolic 56–73; PULSE 69–110; RESP 15–24; TEMP 98.2–99.7; O2SAT 87–96
--- NOTE | 2017-10-31 00:03 | RADRPT ---
EXAM DATE/TIME: 10/30/2017 23:32 [facility] COMPARISON: No previous studies available for comparison. INDICATIONS : Acute kidney injury. MEDICAL HISTORY : Congestive heart failure. Hypercholesterolemia. Hypertension. Coronary artery disease. Hyperlipidemia . COPD. Diabetes. Tobacco use. SURGICAL HISTORY : Coronary artery stent. Cardiac cath. Bilateral knee replacements. ENCOUNTER: Initial ACUITY: 1 day PAIN SCORE: Nonresponsive. LOCATION: Bilateral flank MEASUREMENTS: RIGHT KIDNEY: 11.6 x 4.5 x 5.4 cm LEFT KIDNEY: 9.3 x 5.4 x 6.0 cm FINDINGS: RIGHT KIDNEY: Renal cortex is normal in thickness and echotexture. No hydronephrosis, stone, or mass. LEFT KIDNEY: Renal cortex is normal in thickness and echotexture. No hydronephrosis, stone, or mass. BLADDER: Completely decompressed. CONCLUSION: 1. Both kidneys are sonographically normal. 2. Bladder is decompressed. Talon May MD on October 31, 2017 at 0:00 Board Certified Radiologist. This report was verified electronically.
[2017-10-31] MEDS: methylPREDNISolone SOD SUCC 40 MG/1 ML VIAL IV PUSH SCH ×5 (00:18→23:33)
[2017-10-31 00:30] LABS: BICARBONATE 26.9 MEQ/L (21.0-32.0); BLOOD UREA NITROGEN 99 MG/DL (7-18); CALCIUM 8.4 MG/DL (8.5-10.1); CHLORIDE 105 MEQ/L (98-107); CREATININE 3.42 MG/DL (0.60-1.30); GLOMERULAR FILTRATION RATE 18 ML/MIN (>89); GLUCOSE,RANDOM 192 MG/DL (74-106); SODIUM (NA) 140 MEQ/L (136-145); TROPONIN I LESS THAN 0.02 NG/ML (0.02-0.05)
[2017-10-31] MEDS ORDERED: FUROSEMIDE 100 MG/10 ML VIAL IV PUSH ONE (01:15)
[2017-10-31] MEDS ORDERED: DEXTROSE 50% IN WATER 50 ML VIAL(D50) IV ONE ×2 (01:15→05:00)
[2017-10-31] MEDS ORDERED: INSULIN HUMAN REGULAR 1,000 UNITS/10 ML VIAL IV PUSH ONE ×2 (01:15→05:00)
[2017-10-31] MEDS: SODIUM POLYSTYRENE SULFONATE SUSP 15 GM/60 ML CUP PO SCH ×2 (02:00)
--- NOTE | 2017-10-31 02:07 | RADRPT ---
EXAM DATE/TIME: 10/31/2017 01:43 [facility] COMPARISON: No previous studies available for comparison. INDICATIONS : Nasogastric tube placement. MEDICAL HISTORY : Congestive heart failure. Hypercholesterolemia. Hypertension. Hyperlipidemia. COPD. Diabetes SURGICAL HISTORY : Coronary artery stent. Total knee replacement, right. Total knee replacement, left. ENCOUNTER: Initial ACUITY: 2 days PAIN SCORE: Non-responsive. LOCATION: Bilateral Abdomen FINDINGS: Supine view of the abdomen was performed. The abdominal bowel gas pattern is normal. Nasogastric tu be is identified in the left upper abdominal quadrant. No abnormal masses, calcifications, or organom egaly is seen. The osseous structures are unremarkable with some degenerative spurring of the thorac olumbar spine. CONCLUSION: 1. Nasogastric type tube the tip projecting in the left upper abdominal quadrant in the expected loca tion of the gastric lumen. 2. Nonobstructive bowel gas pattern Talon May MD on October 31, 2017 at 2:03 Board Certified Radiologist. This report was verified electronically.
[2017-10-31] MEDS: SODIUM POLYSTYRENE SULFONATE SUSP 15 GM/60 ML CUP NG SCH ×3 (02:13→06:15)
[2017-10-31] MEDS: RESP: ALBUTEROL 2.5 MG/IPRATROPIUM 0.5 MG NEB (SCH) INH ×5 (03:04→19:51)
[2017-10-31] MEDS: CHLORHEXIDINE GLUCONATE 2 % 1 PACK (2 CLOTHS) TOP SCH (04:00)
[2017-10-31 04:18] LABS: AUTOMATED NEUTROPHIL # 13.8 TH/MM3 (1.8-7.7); BASOPHIL % 0.1 % (0.0-2.0); HEMATOCRIT 42.6 % (39.0-51.0); HEMOGLOBIN 13.3 GM/DL (13.0-17.0); LYMPH % 5.1 % (9.0-44.0); LYMPHOCYTE # 0.8 TH/MM3 (1.0-4.8); MEAN CELL VOLUME 94.6 FL (80.0-100.0); MEAN CORPUSCULAR HEMOGLOBIN 29.5 PG (27.0-34.0); MEAN CORPUSCULAR HGB CONC 31.2 % (32.0-36.0); MEAN PLATELET VOLUME 9.2 FL (7.0-11.0); MONO % 5.5 % (0.0-8.0); MONOCYTE # 0.8 TH/MM3 (0-0.9); NEUT % 89.3 % (16.0-70.0); PLATELET COUNT 221 TH/MM3 (150-450); RED CELL DISTRIBUTION WIDTH 15.3 % (11.6-17.2); WHITE BLOOD COUNT 15.5 TH/MM3 (4.0-11.0)
[2017-10-31 04:41] LABS: ALBUMIN 3.4 GM/DL (3.4-5.0); ALKALINE PHOSPHATASE 79 U/L (45-117); ALT (GPT) 24 U/L (12-78); AST (GOT) 23 U/L (15-37); BLOOD UREA NITROGEN 97 MG/DL (7-18); CALCIUM 8.5 MG/DL (8.5-10.1); CHLORIDE 104 MEQ/L (98-107); CREATININE 3.45 MG/DL (0.60-1.30); GLOMERULAR FILTRATION RATE 18 ML/MIN (>89); GLUCOSE,RANDOM 195 MG/DL (74-106); PHOSPHORUS 8.7 MG/DL (2.5-4.9); SODIUM (NA) 140 MEQ/L (136-145); TOTAL BILIRUBIN ADULT 0.3 MG/DL (0.2-1.0); TOTAL PROTEIN 7.2 GM/DL (6.4-8.2)
[2017-10-31] MEDS ORDERED: SODIUM BICARBONATE 8.4% INJ 50 MEQ/50 ML SYR IV PUSH ONE (05:00)
[2017-10-31] MEDS: HEPARIN SODIUM - SQ 10,000 UNITS/ML VIAL SQ SCH ×2 (05:04→17:57)
[2017-10-31] MEDS ORDERED: HEPARIN SODIUM - IV 10,000 UNITS/10 ML VIAL ONE (05:32)
--- NOTE | 2017-10-31 06:19 | PD.PROCEDR ---
Procedure Note Procedure Preop diagnosis: Acute on chronic respiratory failure, acute renal failure, hyperkalemia Postop diagnosis: Same Informed consent: Obtained from family and documented on chart Anesthesia: 1% lidocaine for local infiltration anesthesia Procedure: dialysis catheter placement Site: Left femoral vein Ultrasound guidance : No After sterile prepping and draping using 1% lidocaine for local infiltration anesthesia, left femoral vein was cannulated using an introducer needle with dark nonpulsatile blood return. A Guidewire was passed through the introducer needle without any resistance and the needle was then removed. After making a skin neck and dilation of tract, a 14 [place] dual lumen dialysis catheter was passed over the guidewire by modified seldinger's technique into the left femoral vein and the guidewire was then removed. Good blood return obtained through both ports which were then flushed with saline and subsequently hep- locked. After suturing the catheter in place, a Bio-occlusive dressing with biopatch was applied to the site. Patient tolerated the procedure well with no immediate complications noted. Geovany Gallo MD Oct 31, 2017 06:19
--- NOTE | 2017-10-31 07:29 | RADRPT ---
EXAM DATE/TIME: 10/31/2017 06:56 [facility] COMPARISON: ABDOMEN KUB ONLY, October 31, 2017, 1:43. INDICATIONS : Post vascath placement left femoral MEDICAL HISTORY : Congestive heart failure. Hypertension Chronic obstructive pulmonary disease. diabetic SURGICAL HISTORY : Coronary artery stent. bilateral knee replacements ENCOUNTER: Subsequent ACUITY: 3 days PAIN SCORE: Non-responsive. LOCATION: Bilateral abdomen FINDINGS: Supine view of the abdomen was performed. There is an NG tube in place with the tip in the upper sto mach. There is a left femoral vein catheter present. There is increased density seen at the lung base s bilaterally. The bowel gas pattern is unremarkable. The osseous structures are unremarkable. CONCLUSION: 1. Left femoral vein catheter with the tip overlying the left pelvis in the expected region of the ex ternal iliac vein. 2. NG tube in the upper stomach. 3. Bibasilar areas of consolidation or atelectasis. Andrae Burgess MD on October 31, 2017 at 7:23 Board Certified Radiologist. This report was verified electronically.
[2017-10-31 07:54] LABS: HEMATOCRIT 42.4 % (39.0-51.0); HEMOGLOBIN 13.2 GM/DL (13.0-17.0); MEAN CELL VOLUME 95.1 FL (80.0-100.0); MEAN CORPUSCULAR HEMOGLOBIN 29.6 PG (27.0-34.0); MEAN CORPUSCULAR HGB CONC 31.1 % (32.0-36.0); MEAN PLATELET VOLUME 9.4 FL (7.0-11.0); PLATELET COUNT 232 TH/MM3 (150-450); RED BLOOD COUNT 4.46 MIL/MM3 (4.50-5.90); RED CELL DISTRIBUTION WIDTH 15.2 % (11.6-17.2)
[2017-10-31 08:12] LABS: BICARBONATE 31.7 MEQ/L (21.0-32.0); CALCIUM 8.5 MG/DL (8.5-10.1); CREATININE 3.56 MG/DL (0.60-1.30); MAGNESIUM 2.9 MG/DL (1.5-2.5)
[2017-10-31 08:15] LABS: PHOSPHORUS 8.4 MG/DL (2.5-4.9)
--- NOTE | 2017-10-31 09:02 | HHI.CCPN ---
Subjective Remarks/Hospital Course 10/30: 62-year-old gentleman with history of COPD on home O2, congestive heart failure, hypertension, CAD, spinal stenosis now now brought to the emergency room with altered mental status and respiratory distress. Patient presented on October 27 to [facility] emergency with worsening shortness of breath. He was found to have acute COPD exacerbation but patient declined admission. He was treated with prednisone and azithromycin and bronchodilators and he was discharged home. Over the last few days patient had worsening shortness of breath associated with cough and since yesterday patient became increasingly lethargic. Over the night patient became very poorly responsive therefore today daughter called EVAC patient was brought to the emergency room. On ED arrival patient was unresponsive. Blood gas done showed severe respiratory acidosis. Moreover, patient was found to have acute hyperkalemia and acute kidney injury, potassium up to 7.5. Patient was treated with Solu- Medrol, DuoNeb, insulin and dextrose, Kayexalate, calcium gluconate and bicarbonate. Stat consult for nephrology was placed in ED physician is waiting for callback. [facility] was consulted for ICU admission. Patient was not intubated because he has a standing DNR. Patient was immediately seen in the emergency room, daughter present at bedside. Patient is on BiPAP, arousable, following some commands. Per daughter, patient has a standing DNR/DNI and her sister who has POA was contacted by emergency room physician to complete the DNR form. 10/31: Over the night the patient was transitioned to facemask with subsequent worsening and hypercapnia, then placed back on BiPAP. Currently patient on BiPAP 15/5 at 55% O2. Patient is arousable but does not follow commands. Due to elevated potassium despite medical measures and HD catheter was placed and patient will undergo emergent hemodialysis. ROS: Unobtainable due to patient's mental status Objective Vital Signs Date Time Temp Pulse Resp B/P (MAP) Pulse Ox O2 Delivery O2 Flow Rate FiO2 10/31/17 08:39 93 BiPAP 50 10/31/17 06:00 83 10/31/17 04:11 11.00 10/31/17 03:00 98.2 16 125/61 (82) Intake and Output 10/31/17 10/31/17 11/01/17 08:00 16:00 00:00 Intake Total 0 ml Output Total 675 ml Balance -675 ml Result Diagram: 10/31/17 0720 10/31/17 0720 Other Results Blood cultures are pending Laboratory Tests Test 10/30/17 14:06 10/30/17 18:00 10/31/17 05:22 Blood Gas Puncture Site RT BRACHIAL RT RADIAL RT RADIAL Blood Gas Patient Temperature 98.6 98.6 98.6 Blood Gas HCO3 30 mmol/L (22-26) 30 mmol/L (22-26) 31 mmol/L (22-26) Blood Gas Base Excess 0.8 mmol/L (-2-2) 1.9 mmol/L (-2-2) 1.3 mmol/L (-2-2) Blood Gas Oxygen Saturation 96 % (90-100) 89 % (90-100) 95 % (90-100) Arterial Blood pH 7.12 (7.380-7.420) 7.16 (7.380-7.420) 7.05 (7.380-7.420) Arterial Blood Partial Pressure CO2 96 mmHg (38-42) 88 mmHg (38-42) 120 mmHg (38-42) Arterial Blood Partial Pressure O2 131 mmHG (61-120) 69 mmHg (61-120) 112 mmHg (61-120) Arterial Blood Oxygen Content 18.7 Vol % (12.0-20.0) 17.3 Vol % (12.0-20.0) 17.7 Vol % (12.0-20.0) Arterial Blood Carboxyhemoglobin 0.9 % (0-4) 1.1 % (0-4) 0.6 % (0-4) Arterial Blood Methemoglobin 1.1 % (0-2) 1.4 % (0-2) 2.0 % (0-2) Blood Gas Hemoglobin 13.7 G/DL (12.0-16.0) 13.8 G/DL (12.0-16.0) 13.2 G/DL (12.0-16.0) Oxygen Delivery Device AEROSOL MASK BiPAP PRB MASK Blood Gas Liter Flow 7 L/M 11 L/M Blood Gas Inspired Oxygen 50 % 40 % Blood Gas Ventilator Setting [id number] Imaging Last Impressions Chest X-Ray 10/30/17 1345 Signed Impressions: Service Date/Time: Monday, October 30, 2017 13:49 - CONCLUSION: Cardiomegaly. Andrae Burgess MD Objective Remarks General - middle-aged gentleman, lethargic, arousable, ill-appearing HEENT - pupils are equal, reactive, sclerae are anicteric, neck is supple, no rigidity, no JVD, no carotid bruit CV - irregular heart sound, systolic ejection murmur at the apex Chest - coarse breath sounds bilateral, scattered wheezes, decreased air entry Abdomen - soft, not distended, non-tender, BS present, no hepatomegaly, no splenomegaly Skin - no rashes, no cyanosis, multiple tattoos Extremities - warm, no edema, + peripheral pulses, no clubbing Neuro - lethargic but arousable, does not follow commands A/P Assessment and Plan 1. Acute hypercapnic respiratory failure -worsening 2. Acute COPD exacerbation 3. Acute hyperkalemia -potassium remains elevated 4. Acute kidney injury -had 650 mL of urine output since admission 5. History of CAD with stent placement 6. History of hypertension 7. History of spinal stenosis on chronic opiates 1. Continue BiPAP, settings readjusted, IPAP increased to 20, FiO2 decreased to 0.5, respiratory therapist asked to readjust the mask to improve the seal 2. Continue Solu-Medrol 60 mg every 6 hours and scheduled bronchodilators every 4 hours 3. Empiric ceftriaxone and azithromycin 4. Nephrology consult called, HD catheter has been placed, patient will undergo emergent HD 5. Repeat potassium post HD 6. Repeat ABG now 7. Palliative consult 8. Hold pain medication in the setting of poor mental status 9. GI and DVT prophylaxis 10. DNR per patient's wishes expressed by daughter 11. NPO No family present at bedside. Patient is critically ill and at high risk for further deterioration and . Ernesto Armenta MD Oct 31, 2017 09:02
[2017-10-31] MEDS ORDERED: SODIUM CHLOR 0.9% 1000 ML INJ 1,000 ML IV PRN (09:35)
[2017-10-31] MEDS ORDERED: SODIUM CHLOR 0.9% 1000 ML INJ 1,000 ML OTHER PRN ×2 (09:35→10:00)
[2017-10-31] MEDS ORDERED: NITROGLYCERIN 0.4 MG SL 25 TABS/BTL SL PRN (09:45)
[2017-10-31] MEDS ORDERED: MANNITOL 12.5 GM/50 ML VIAL IV PRN (09:45)
[2017-10-31] MEDS ORDERED: GELATIN 12 MM/7 MM FOAM TOP PRN (09:45)
[2017-10-31] MEDS ORDERED: SODIUM CHLORIDE 0.9% FLUSH 10 ML FLUSH IV FLUSH PRN (09:45)
[2017-10-31] MEDS ORDERED: GENTAMICIN SULFATE 20 MG/2 ML VIAL OTHER PRN (09:45)
[2017-10-31] MEDS ORDERED: ONDANSETRON HCL 4 MG/2 ML VIAL IV PUSH PRN (09:45)
[2017-10-31] MEDS ORDERED: ALBUMIN 25% INJ 100 ML IV PRN (09:45)
[2017-10-31] MEDS ORDERED: cloNIDine HCL 0.1 MG TAB PO PRN (09:45)
[2017-10-31] MEDS ORDERED: diphenhydrAMINE HCL 25 MG CAP PO PRN (09:45)
[2017-10-31] MEDS ORDERED: HEPARIN SODIUM - IV 10,000 UNITS/10 ML VIAL PRN (09:45)
[2017-10-31] MEDS ORDERED: HEPARIN SODIUM - IV 10,000 UNITS/10 ML VIAL IV FLUSH PRN (09:45)
[2017-10-31] MEDS ORDERED: ACETAMINOPHEN 325 MG TAB PO PRN (09:45)
--- NOTE | 2017-10-31 11:01 | PD.CONS ---
Consult Service Palliative Care Consult Requested By Dr. Armenta . Primary Care Physician Dr. Perry Millard . Reason for Consultation a. To assist with evaluation and management of symptoms including: Dyspnea, altered mental status, Pain b. To assist medical decision maker(s) with: better understanding of current medical conditions; weighing benefits/burdens of medical treatment options; making medical treatment decisions. HPI History of Present Illness This is a 62-year-old male who has a history of COPD, CAD, DM, hypertension, dyslipidemia, osteoarthritis, degenerative disc disease, fibromyalgia, Lyme disease and CHF with intermittent oxygen dependency, and recently moved from [place] to [place], [place] where he spent most of last year and suffered several hospitalizations, the last of which was in May 2017. He was hospitalized in early April prior to that with substance abuse issues and at that time stopped using the significant amount of alcohol that he had previously been indulging in. He subsequently underwent detox and rehab and his daughter reports that he denies any further alcohol or substance abuse since that time. He and his daughter Mercy, then moved to [place] . He was seen in the emergency room 10/27/17 for a complaint of dyspnea and dry, nonproductive cough and diagnosed with COPD exacerbation/bronchitis. In spite of a recommendation for admission, the patient chose to go home with Zithromax, prednisone and albuterol nebulizers and follow-up with his primary care doctor the following day. He was brought back to the emergency room 10/30 with altered mental status. he was unable to provide any history. History was obtained from his daughter's, Mercy and Gemma ED course: * Laboratory: ABG pH 7.12, PCO2 96, PO2 131, bicarbonate 30, base excess +0.8, saturation 96% on 50% FiO2, WBC 17.2, hemoglobin 13.8, hematocrit 43.5, platelets 238, B natruretic peptide 36, lactic acid 0.9, sodium 139, potassium 7.5, BUN 89, creatinine 3.63. Blood cultures were drawn. * Radiology: Chest x-ray showed cardiomegaly. Renal ultrasound showed sonographically normal kidneys bilaterally and a decompressed bladder. Abdomen x-ray showed left femoral vein catheter with the tip overlying the left pelvis in the expected region of the external iliac vein. NG tube in the upper stomach. Bibasilar areas of consolidation or atelectasis. Repeat abdomen x- ray after NG tube advancement showed to be in the expected location of the gastric lumen with nonobstructive bowel gas pattern. Consults were placed for palliative care and nephrology secondary to his acute renal failure. On 10/27 visit to the ED, his BUN was 40 and creatinine 1.94. On this admission, 3 days later BUN had risen to 89 and creatinine 3.63. IV rehydration with sodium chloride was initiated at 100 mL/h. He is undergoing emergent dialysis or severe hyperkalemia and acute renal failure. He has previously seen Dr. Nunez and is in process of being worked up for spinal surgery secondary to his severe, chronic pain. He sees Dr. Berger at [facility] for frequent epidurals. He has established with Dr. Perry Millard for primary care. . Function/Cognitive Trajectory He has had multiple episodes of COPD exacerbations, was intubated twice in the past and after that said he did not wish to be reintubated any longer. 5 years ago he was actually withdrawn from the ventilator and then survived. His daughter states he has had at least 7 exacerbations over the last few years but has never deteriorated to the point of needing dialysis before. She states that he is able to drive, although his daughter Mercy states that she drives him most of the time, cooks his own meals, gets around with an electric scooter but has severely debilitating back pain. Due to insurance restrictions he has been going through insurance driven protocols with an end goal of having surgery to relieve the pain in his back. His trajectory has been a series of frequent declines with recovery to near, but not reaching, baseline. Given his long history of chronic pain he is likely to continue to suffer frequent exacerbations and debility. . Review of Systems ROS Limitations: Clinical Condition (Patient is nonverbal and unable to provide their own ROS. 10 part ROS taken as best as possible from medical record and available family.), Altered Mental Status Constitutional: COMPLAINS OF: Pain Respiratory: COMPLAINS OF: Shortness of breath Psychiatric: COMPLAINS OF: Confusion (Patient wanted to) Past Family Social History Coded Allergies: No Known Allergies (Unverified , 10/30/17) Past Medical History COPD on home O2 intermittently Congestive heart failure of unknown type Hypertension Coronary artery disease status post stent placement Diabetes Spinal stenosis Dyslipidemia Lyme's disease Osteoarthritis Degenerative disc disease Fibromyalgia . Past Surgical History Bilateral knee replacement Multiple steroid injections Intubation 2 . Reported Medications Reported Meds & Active Scripts Active Albuterol Neb (Albuterol Sulfate) 2.5 Mg/3 Ml Neb 2.5 Mg NEB Q4HR NEB PRN Prednisone 20 Mg Tab 40 Mg PO DAILY 5 Days Take 40 mg (2 tablets) daily for 5 days Zithromax Z-Rupesh (Azithromycin) 250 Mg Dspk 250 Mg PO DIRECTED 500 MG (2 tabs) day 1, then 1 tab days 2-5. Reported Furosemide 80 Mg Tab 120 Mg PO DAILY Gabapentin 300 Mg Cap 300 Mg PO TID Tizanidine (Tizanidine HCl) 4 Mg Tab 4 Mg PO TID Meloxicam 15 Mg Tab 15 Mg PO DAILY Tamsulosin (Tamsulosin HCl) 0.4 Mg Cap 0.4 Mg PO DAILY Hydrocodone-Acetamin 10-325 mg (Hydrocodone/Acetaminophen) 10 Mg-325 Mg Tablet 1 Tab PO Q6HR PRN Metformin (Metformin HCl) 1,000 Mg Tab 1,000 Mg PO DAILY Amlodipine (Amlodipine Besylate) 10 Mg Tab 10 Mg PO DAILY Metoprolol Tartrate 100 Mg Tab 100 Mg PO BID Morphine ER (Morphine Sulfate) 30 Mg Tab 30 Mg PO BID Lisinopril 40 Mg Tab 40 Mg PO DAILY . Current Medications Medications (Trade) Dose Ordered Sig/Kaila Route Start Time Stop Time Status Last Admin (NS Flush) 2 ml UNSCH PRN IVF 10/30/17 13:45 Sodium Chloride 1,000 ml @ 100 mls/hr Q10H IV 10/30/17 17:13 10/30/17 22:21 (Pepcid Inj) 20 mg Q12HR IV PUSH 10/30/17 21:00 10/30/17 20:11 (Duoneb Neb) 1 ampule Q4HR NEB INH 10/30/17 20:00 10/31/17 08:36 (Heparin Inj) 5,000 units Q12H SQ 10/30/17 17:15 10/31/17 05:04 ([facility] [place] [facility]) 1 [id number] XX 10/30/17 17:15 (Chlorhexidine 2% Cloth) 3 pack Taper DAILY@04 TOP 10/31/17 04:00 10/27/18 03:59 10/31/17 04:00 (Chlorhexidine 2% Cloth) 3 pack UNSCH PRN TOP 10/30/17 17:15 (SoluMEDROL INJ) 60 mg Q6HR IV PUSH 10/30/17 18:00 10/31/17 05:03 Azithromycin 500 mg/Sodium Chloride 250 ml @ 250 mls/hr Q24H IV 10/30/17 19:00 10/30/17 20:11 Ceftriaxone Sodium 1000 mg/ Sodium Chloride 100 ml @ 200 mls/hr Q24H IV 10/30/17 20:00 10/30/17 20:11 Sodium Chloride 1,000 ml @ 0 mls/hr Q0M PRN OTHER 10/31/17 09:35 (Heparin Inj) 8,000 units UNSCH PRN IV FLUSH 10/31/17 09:45 Sodium Chloride 1,000 ml @ 200 mls/hr Q5H PRN IV 10/31/17 09:35 Sodium Chloride 1,000 ml @ 0 mls/hr Q0M PRN OTHER 10/31/17 10:00 (Mannitol Inj) 12.5 gm UNSCH PRN IV 10/31/17 09:45 Albumin Human 100 ml @ 60 mls/hr UNSCH PRN IV 10/31/17 09:45 (NS Flush) 5 ml UNSCH PRN IV FLUSH 10/31/17 09:45 (Heparin Inj) UNSCH PRN .XX 10/31/17 09:45 (Gentamicin Inj) 20 mg UNSCH PRN OTHER 10/31/17 09:45 (Zofran Inj) 4 mg UNSCH PRN IV PUSH 10/31/17 09:45 (Tylenol) 650 mg UNSCH PRN PO 10/31/17 09:45 (Benadryl) 25 mg UNSCH PRN PO 10/31/17 09:45 (Nitrostat Sl) 0.4 mg UNSCH PRN SL 10/31/17 09:45 (Catapres) 0.1 mg UNSCH PRN PO 10/31/17 09:45 (Gelfoam 12 Mm/7 Mm Top) 1 foam UNSCH PRN TOP 10/31/17 09:45 Family History Family history is positive for stroke in his father and anxiety and back pain in his mother. Both are , father at 64 and mother at 80. He has 3 living daughters in good health. . Substance Use Tobacco: Chronic smoker of one pack per day. Alcohol: Heavy use prior to April 2017 when he went through rehab. Prescription med abuse: History of opiate abuse in his younger years. Prescribed opiates for pain management at this time with no recent abuse Illicits: History of cocaine use, street opiates in his younger years. None recent. . 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 He was and had 3 daughters, Gemma Thomson and Mercy. He is currently . He was not in the service. . 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 . Living Will: Never completed Health Care Surrogate: Copy in medical record Durable Power of Compliance Program Manager: Never completed Date completed: Form completed, but undated. . Health Care Surrogate(s): He names his daughter Alix Scruggs as his primary healthcare decision maker with his daughter Gemma oMnroe as his alternate. . Documented care wishes: No living will available. . Today's verbally stated goals: Patient on BiPAP with altered mental status, unable to express his goals. . Family/friends goals: In discussions with his daughters, Gemma and Mercy, they state that the patient did not want to ever be intubated again and would prefer to pass naturally and that his daughters are in agreement with his goals. They also state that under no circumstances would, but are they want him to have physical restraints in favor of chemical restraints if needed. They do not wish him to live in an uncomfortable or dependent state and would support short-term rehabilitation if appropriate. . Ethical and Legal Issues None noted. . Physical Exam Vital Signs Date Time Temp Pulse Resp B/P (MAP) Pulse Ox O2 Delivery O2 Flow Rate FiO2 10/31/17 08:39 93 BiPAP 50 10/31/17 08:39 93 50 10/31/17 06:00 83 10/31/17 05:35 94 55 10/31/17 04:11 90 Partial Rebreather 11.00 10/31/17 04:10 87 Venturi Mask 6.00 50 10/31/17 04:00 80 10/31/17 03:23 96 Venturi Mask 6.00 50 10/31/17 03:00 98.2 85 16 125/61 (82) 10/31/17 02:00 83 10/31/17 00:50 96 Non-Rebreather 15.00 10/31/17 00:00 69 10/30/17 23:34 97 55 10/30/17 23:00 98.0 68 16 128/59 (82) 10/30/17 23:00 68 10/30/17 22:00 75 10/30/17 20:22 95 60 10/30/17 20:00 68 10/30/17 19:10 94 40 10/30/17 19:07 97.8 74 18 122/58 (79) 99 10/30/17 19:00 10/30/17 18:03 77 28 113/53 (73) 90 BiPAP 40 10/30/17 17:00 66 28 98/53 (68) 94 BiPAP 50 10/30/17 16:00 66 30 111/53 (72) 93 BiPAP 40 10/30/17 15:00 64 20 109/56 (73) 92 BiPAP 40 10/30/17 14:30 94 40 10/30/17 14:23 BiPAP 10/30/17 14:00 62 28 104/56 (72) 97 BiPAP 40 10/30/17 14:00 Aerosol Mask 8.00 10/30/17 13:52 97 Aerosol Mask 10/30/17 13:52 40 97 Aerosol Mask 7.00 40 10/30/17 13:49 99.1 72 40 106/55 (72) 97 . 10/31/17 11/01/17 19:00 07:00 Output Total 1000 ml Balance -1000 ml Hemodialysis 1000 ml . Exam CONSTITUTIONAL/GENERAL: This is an obese male, on BiPAP, no acute distress. TUBES/LINES/DRAINS: Left femoral Vas-Cath, left ACF PIV, right hand PIV. BiPAP , Toney catheter. SKIN: No jaundice, rashes, or lesions. Ecchymoses on upper extremities. No wounds seen anteriorly. Skin temperature appropriate. Not diaphoretic. HEAD: Atraumatic. Normocephalic. EYES: Pupils equal and round and reactive. Extraocular motions intact. No scleral icterus. No injection or drainage. Fundi not examined. ENT: Hearing grossly normal. Nose without bleeding or purulent drainage. Throat without visible erythema, exudates, masses, or lesions. NECK: Trachea midline. Supple, nontender. No palpable thyroid enlargement or nodularity. CARDIOVASCULAR: Regular rate and rhythm without murmurs, gallops, or rubs. No JVD. Peripheral pulses symmetric. RESPIRATORY/CHEST: Lungs are coarse with wheezing throughout all lung lee. Symmetric lung expansion, eupneic respiratory rate. GASTROINTESTINAL: Abdomen protuberant, slightly firm, positive bowel sounds. GENITOURINARY: Without palpable bladder distension. Toney catheter in place. MUSCULOSKELETAL: Extremities without clubbing, cyanosis, or edema. No joint tenderness or effusion noted. No calf tenderness. No mottling or clubbing. LYMPHATICS: No palpable cervical or supraclavicular adenopathy. NEUROLOGICAL: Arouses to voice, dozes off, follows commands. PSYCHIATRIC: Lethargy with alternating agitation when arousable. . Diagnostic Tests Laboratory Allergies a drain Laboratory Tests Test 10/30/17 13:50 10/30/17 14:06 10/30/17 15:00 10/30/17 17:48 White Blood Count 17.2 TH/MM3 (4.0-11.0) Red Blood Count 4.69 MIL/MM3 (4.50-5.90) Hemoglobin 13.8 GM/DL (13.0-17.0) Hematocrit 43.5 % (39.0-51.0) Mean Corpuscular Volume 92.9 FL (80.0-100.0) Mean Corpuscular Hemoglobin 29.4 PG (27.0-34.0) Mean Corpuscular Hemoglobin Concent 31.6 % (32.0-36.0) Red Cell Distribution Width 14.7 % (11.6-17.2) Platelet Count 238 TH/MM3 (150-450) Mean Platelet Volume 8.9 FL (7.0-11.0) Neutrophils (%) (Auto) 86.0 % (16.0-70.0) Lymphocytes (%) (Auto) 4.6 % (9.0-44.0) Monocytes (%) (Auto) 9.1 % (0.0-8.0) Eosinophils (%) (Auto) 0.0 % (0.0-4.0) Basophils (%) (Auto) 0.3 % (0.0-2.0) Neutrophils # (Auto) 14.8 TH/MM3 (1.8-7.7) Lymphocytes # (Auto) 0.8 TH/MM3 (1.0-4.8) Monocytes # (Auto) 1.6 TH/MM3 (0-0.9) Eosinophils # (Auto) 0.0 TH/MM3 (0-0.4) Basophils # (Auto) 0.1 TH/MM3 (0-0.2) CBC Comment DIFF FINAL Differential Comment Lactic Acid Level 0.9 mmol/L (0.4-2.0) 1.0 mmol/L (0.4-2.0) B-Type Natriuretic Peptide 36 PG/ML (0-100) Blood Gas Puncture Site RT BRACHIAL Blood Gas Patient Temperature 98.6 Blood Gas HCO3 30 mmol/L (22-26) Blood Gas Base Excess 0.8 mmol/L (-2-2) Blood Gas Oxygen Saturation 96 % (90-100) Arterial Blood pH 7.12 (7.380-7.420) Arterial Blood Partial Pressure CO2 96 mmHg (38-42) Arterial Blood Partial Pressure O2 131 mmHG (61-120) Arterial Blood Oxygen Content 18.7 Vol % (12.0-20.0) Arterial Blood Carboxyhemoglobin 0.9 % (0-4) Arterial Blood Methemoglobin 1.1 % (0-2) Blood Gas Hemoglobin 13.7 G/DL (12.0-16.0) Oxygen Delivery Device AEROSOL MASK Blood Gas Liter Flow 7 L/M Blood Gas Inspired Oxygen 50 % Blood Urea Nitrogen 89 MG/DL (7-18) 94 MG/DL (7-18) Creatinine 3.63 MG/DL (0.60-1.30) 3.72 MG/DL (0.60-1.30) Random Glucose 152 MG/DL (74-106) 166 MG/DL (74-106) Total Protein 7.7 GM/DL (6.4-8.2) Albumin 3.7 GM/DL (3.4-5.0) Calcium Level 8.2 MG/DL (8.5-10.1) 9.0 MG/DL (8.5-10.1) Magnesium Level 2.7 MG/DL (1.5-2.5) Alkaline Phosphatase 71 U/L (45-117) Aspartate Amino Transf (AST/SGOT) 19 U/L (15-37) Alanine Aminotransferase (ALT/SGPT) 17 U/L (12-78) Total Bilirubin 0.5 MG/DL (0.2-1.0) Sodium Level 139 MEQ/L (136-145) 141 MEQ/L (136-145) Potassium Level 7.5 MEQ/L (3.5-5.1) 6.3 MEQ/L (3.5-5.1) Chloride Level 104 MEQ/L (98-107) 104 MEQ/L (98-107) Carbon Dioxide Level 29.6 MEQ/L (21.0-32.0) 32.0 MEQ/L (21.0-32.0) Anion Gap 5 MEQ/L (5-15) 5 MEQ/L (5-15) Estimat Glomerular Filtration Rate 17 ML/MIN (>89) 17 ML/MIN (>89) Troponin I LESS THAN 0.02 NG/ML LESS THAN 0.02 NG/ML Test 10/30/17 18:00 10/30/17 19:00 10/30/17 20:20 10/30/17 23:47 Blood Gas Puncture Site RT RADIAL Blood Gas Patient Temperature 98.6 Blood Gas HCO3 30 mmol/L (22-26) Blood Gas Base Excess 1.9 mmol/L (-2-2) Blood Gas Oxygen Saturation 89 % (90-100) Arterial Blood pH 7.16 (7.380-7.420) Arterial Blood Partial Pressure CO2 88 mmHg (38-42) Arterial Blood Partial Pressure O2 69 mmHg (61-120) Arterial Blood Oxygen Content 17.3 Vol % (12.0-20.0) Arterial Blood Carboxyhemoglobin 1.1 % (0-4) Arterial Blood Methemoglobin 1.4 % (0-2) Blood Gas Hemoglobin 13.8 G/DL (12.0-16.0) Oxygen Delivery Device BiPAP Blood Gas Ventilator Setting [id number] Blood Gas Inspired Oxygen 40 % Nasal Screen MRSA (PCR) MRSA NOT DETECTED (NOT Urine Color YELLOW (YELLW/STRAW) Urine Turbidity CLEAR (CLEAR) Urine pH 5.0 (5.0-8.5) Urine Specific [place] 1.014 (1.002-1.035) Urine Protein TRACE mg/dL (NEG-TRACE) Urine Glucose (UA) NEG mg/dL (NEG) Urine Ketones NEG mg/dL (NEG) Urine Occult Blood NEG (NEG) Urine Nitrite NEG (NEG) Urine Bilirubin NEG (NEG) Urine Urobilinogen LESS THAN 2.0 MG/DL (LESS Urine Leukocyte Esterase NEG (NEG) Urine WBC 1 /hpf (0-5) Urine Squamous Epithelial Cells 1 /hpf (0-5) Urine Hyaline Casts 20 /lpf (RARE) Urine Mucus FEW /lpf (OCC) Microscopic Urinalysis Comment CULT NOT INDICATED Urine Random Creatinine 185.1 MG/DL Urine Random Sodium 34 MEQ/L Blood Urea Nitrogen 99 MG/DL (7-18) Creatinine 3.42 MG/DL (0.60-1.30) Random Glucose 192 MG/DL (74-106) Calcium Level 8.4 MG/DL (8.5-10.1) Sodium Level 140 MEQ/L (136-145) Potassium Level 6.9 MEQ/L (3.5-5.1) Chloride Level 105 MEQ/L (98-107) Carbon Dioxide Level 26.9 MEQ/L (21.0-32.0) Anion Gap 8 MEQ/L (5-15) Estimat Glomerular Filtration Rate 18 ML/MIN (>89) Troponin I LESS THAN 0.02 NG/ML Test 10/31/17 04:00 10/31/17 05:22 10/31/17 07:20 10/31/17 09:20 White Blood Count 15.5 TH/MM3 (4.0-11.0) 19.0 TH/MM3 (4.0-11.0) Red Blood Count 4.50 MIL/MM3 (4.50-5.90) 4.46 MIL/MM3 (4.50-5.90) Hemoglobin 13.3 GM/DL (13.0-17.0) 13.2 GM/DL (13.0-17.0) Hematocrit 42.6 % (39.0-51.0) 42.4 % (39.0-51.0) Mean Corpuscular Volume 94.6 FL (80.0-100.0) 95.1 FL (80.0-100.0) Mean Corpuscular Hemoglobin 29.5 PG (27.0-34.0) 29.6 PG (27.0-34.0) Mean Corpuscular Hemoglobin Concent 31.2 % (32.0-36.0) 31.1 % (32.0-36.0) Red Cell Distribution Width 15.3 % (11.6-17.2) 15.2 % (11.6-17.2) Platelet Count 221 TH/MM3 (150-450) 232 TH/MM3 (150-450) Mean Platelet Volume 9.2 FL (7.0-11.0) 9.4 FL (7.0-11.0) Neutrophils (%) (Auto) 89.3 % (16.0-70.0) Lymphocytes (%) (Auto) 5.1 % (9.0-44.0) Monocytes (%) (Auto) 5.5 % (0.0-8.0) Eosinophils (%) (Auto) 0.0 % (0.0-4.0) Basophils (%) (Auto) 0.1 % (0.0-2.0) Neutrophils # (Auto) 13.8 TH/MM3 (1.8-7.7) Lymphocytes # (Auto) 0.8 TH/MM3 (1.0-4.8) Monocytes # (Auto) 0.8 TH/MM3 (0-0.9) Eosinophils # (Auto) 0.0 TH/MM3 (0-0.4) Basophils # (Auto) 0.0 TH/MM3 (0-0.2) CBC Comment DIFF FINAL Differential Comment Blood Urea Nitrogen 97 MG/DL (7-18) 101 MG/DL (7-18) Creatinine 3.45 MG/DL (0.60-1.30) 3.56 MG/DL (0.60-1.30) Random Glucose 195 MG/DL (74-106) 193 MG/DL (74-106) Total Protein 7.2 GM/DL (6.4-8.2) Albumin 3.4 GM/DL (3.4-5.0) Calcium Level 8.5 MG/DL (8.5-10.1) 8.5 MG/DL (8.5-10.1) Phosphorus Level 8.7 MG/DL (2.5-4.9) 8.4 MG/DL (2.5-4.9) Magnesium Level 3.0 MG/DL (1.5-2.5) 2.9 MG/DL (1.5-2.5) Alkaline Phosphatase 79 U/L (45-117) Aspartate Amino Transf (AST/SGOT) 23 U/L (15-37) Alanine Aminotransferase (ALT/SGPT) 24 U/L (12-78) Total Bilirubin 0.3 MG/DL (0.2-1.0) Sodium Level 140 MEQ/L (136-145) 142 MEQ/L (136-145) Potassium Level 7.0 MEQ/L (3.5-5.1) 6.7 MEQ/L (3.5-5.1) Chloride Level 104 MEQ/L (98-107) 104 MEQ/L (98-107) Carbon Dioxide Level 29.0 MEQ/L (21.0-32.0) 31.7 MEQ/L (21.0-32.0) Anion Gap 7 MEQ/L (5-15) 6 MEQ/L (5-15) Estimat Glomerular Filtration Rate 18 ML/MIN (>89) 17 ML/MIN (>89) Lactic Acid Level 0.7 mmol/L (0.4-2.0) Blood Gas Puncture Site RT RADIAL RT RADIAL Blood Gas Patient Temperature 98.6 98.6 Blood Gas HCO3 31 mmol/L (22-26) 32 mmol/L (22-26) Blood Gas Base Excess 1.3 mmol/L (-2-2) 2.3 mmol/L (-2-2) Blood Gas Oxygen Saturation 95 % (90-100) 90 % (90-100) Arterial Blood pH 7.05 (7.380-7.420) 7.09 (7.380-7.420) Arterial Blood Partial Pressure CO2 120 mmHg (38-42) 111 mmHg (38-42) Arterial Blood Partial Pressure O2 112 mmHg (61-120) 67 mmHg (61-120) Arterial Blood Oxygen Content 17.7 Vol % (12.0-20.0) 17.5 Vol % (12.0-20.0) Arterial Blood Carboxyhemoglobin 0.6 % (0-4) 0.7 % (0-4) Arterial Blood Methemoglobin 2.0 % (0-2) 2.1 % (0-2) Blood Gas Hemoglobin 13.2 G/DL (12.0-16.0) 13.8 G/DL (12.0-16.0) Oxygen Delivery Device PRB MASK BiPAP Blood Gas Liter Flow 11 L/M Blood Gas Ventilator Setting [id number] Blood Gas Inspired Oxygen 50 % . Result Diagram: 10/31/1771910/31/17719 Microbiology Microbiology Date/Time Source Procedure Growth Status 10/30/17 13:55 Blood Peripheral Aerobic Blood Culture Pending Received 10/30/17 13:55 Blood Peripheral Anaerobic Blood Culture Pending Received 10/30/17 13:50 Blood Peripheral Aerobic Blood Culture Pending Received 10/30/17 13:50 Blood Peripheral Anaerobic Blood Culture Pending Received Imaging Last Impressions Abdomen X-Ray 10/31/17 0000 Signed Impressions: Service Date/Time: Tuesday, October 31, 2017 06:56 - CONCLUSION: 1. Left femoral vein catheter with the tip overlying the left pelvis in the expected region of the external iliac vein. 2. NG tube in the upper stomach. 3. Bibasilar areas of consolidation or atelectasis. Andrae Burgess MD Chest X-Ray 10/30/17 1345 Signed Impressions: Service Date/Time: Monday, October 30, 2017 13:49 - CONCLUSION: Cardiomegaly. Andrae Burgess MD Renal Ultrasound 10/30/17 0000 Signed Impressions: Service Date/Time: Monday, October 30, 2017 23:32 - CONCLUSION: 1. Both kidneys are sonographically normal. 2. Bladder is decompressed. Talon May MD . Procedures 10/31: Dialysis catheter placement Left femoral vein. Patient/Family Conference Present at Family Conference: No family at bedside at this time. Spoke with his daughters Mercy and Gemma via telephone. Spoke with Gemma for 32 minutes from 11: 14-11: 46 to obtain history, provide medical update and discuss goals of care. Gemma states she will update her sister Alix regarding information provided as well as contact information for palliative care. Spoke with Mercy for 23 minutes from 12: 03-12: 26 to provide medical update and obtain information regarding recent health changes. Patient had made himself a DO NOT RESUSCITATE and his daughters support his decision. Their optimal goal would be for short-term rehab and to return home in hopes that he could obtain spinal surgery as planned with Dr. Nunez to relieve his persistent and overwhelming pain. That failing, their goals remain oriented towards comfort and would consider hospice. Discussed palliative care goals, focus and purpose. Contact information provided. Below listed items discussed and all questions answered to the best of my ability. . Family Conference Location: Telephone Issues Discussed: * Palliative care role, purpose, approach * Additional medical, psychosocial, and spiritual history * Patients general health, functional status, and cognitive changes in the months leading up to the current hospitalization * Patient/family understanding of the current medical problems * Patient/family understanding of prognosis * Patients goals of care as best understood from advance directives and/or conversations and/or values * Current medical treatment options and benefits/burdens of those options * Likely scenarios comparing ongoing aggressive care with a transition to comfort measures only * Questions answered to the best of my ability * Palliative care contact information provided Assessment and Plan Disease Oriented Problem List: (1) Diabetes (2) Dyslipidemia (3) Hyperkalemia (4) Respiratory failure (5) Altered mental status (6) Acute on chronic renal failure Symptom Scale: (1) Dyspnea and respiratory abnormalities 0-10 Scale: 9 (On BiPAP, borderline oxygen saturation.) (2) Altered mental status 0-10 Scale: 7 (Intermittently agitated and following commands.) Pertinent Non-Medical Issues Psychosocial: Spiritual: Legal: Ethical issues impacting care: Important Contacts Daughter: Mercy Monroe Daughter: Helen Salcido . Prognosis His prognosis is guarded. He has severe COPD and is not tolerating being off BiPAP due to hypercarbia and hypoxia. He has been intubated twice in the past and was actually withdrawn from the ventilator and survived. He is declining any further intubation and would prefer medication for his symptoms, with full knowledge that it will likely allow him to , but do so and comfort. Per his daughter this is at least his seventh COPD exacerbation in the last few years and he is having more recurrent decline and hospitalizations. He is likely to continue to suffer complications and decline due to his severe lung compromise, now coupled with acute kidney failure requiring hemodialysis for hyperkalemia. His condition remains critical and guarded. . Code Status: No Code Plan PLAN: Legal decision maker: Patient is not capacitated to make his own decisions at this time. He has named his daughter Alix as his healthcare decision maker, supported by his daughter Gemma, who is the alternate healthcare surrogate and his daughter Mercy. All 3 daughters are working together. Goals: Aggressive short of resuscitation. CODE STATUS: DNR SYMPTOMS: * Dyspnea: Patient is chronically dyspneic and continues to smoke 1 pack per day , which he has for most of his life. He now has hypercarbia as well as hypoxia and is being maintained on BiPAP. He is being treated preemptively for pneumonia with azithromycin and Rocephin, Solu-Medrol and duo nebs. He does have a history of congestive heart failure and it is unknown whether this is systolic or diastolic, or what part this might play in his dyspnea. Would recommend obtaining a 2D echocardiogram to further delineate cardiac contribution to his dyspnea as well as assessing his degree of pulmonary hypertension. * Altered mental status: Likely hypercarbic, hypoxic in nature, however he has a long history of opioid use secondary to severe, chronic pain and may have a component of opioid withdrawal involved, particularly considering his recent dialysis, Given his fragile respiratory status, could consider small doses of morphine for pain and dyspnea management.which was discussed with Dr. Armenta . SUMMARY This is a 62-year-old male seen in the emergency room 10/27 and subsequently admitted 10/30 with altered mental status, respiratory failure, hypercarbia, hypoxia, dyspnea and altered mental status. He has a history of chronic pain for which he was being worked up for spinal surgery, which is now on hold dairy to his hospital admission. He is being maintained on BiPAP but his respiratory status remains extremely fragile. Family is optimistic based on the patient's history of multiple exacerbations with rebounding, but are aware that patient's status is critical and he may not survive this hospitalization. If he continues to decline, family states they will consider hospice for comfort but at this time remain optimistic and their ultimate goal is rehabilitation and proceed with surgery. Patient will likely have continued decline and recurrent hospitalizations due to his severe lung disease. On this admission unfortunately he also has developed acute kidney compromise and is now requiring hemodialysis. This appears to be the beginning of multisystem organ failure. He would be hospice appropriate if goals were consistent. Total time spent with patient to include chart and medical record review, discussion with medical team, family contact and discussion, patient assessment and examination from 10:30 a.m. to 1:08 PM totaling 158 minutes. Palliative care will continue to follow the patient during hospital course as condition evolves, to assist patient/decision-maker with understanding of their medical conditions, weighing benefits/burdens of treatment options, for clarification of goals of treatment. Additionally will assist with any symptoms of palliative concern. . Thank you for the opportunity to participate in the care of Mr. Mabel. Attestation To help prompt me to consider important information that might be impacting today's encounter and assessment, information from prior notes written by myself or my colleagues may have been "brought forward" into today's note. My signature on this note, however, is an attestation that I personally performed the exam, history, and/or decision-making noted today, and, unless otherwise indicated, the interactions with patient, family, and staff as well as the review of records all occurred today. I also attest that the listed assessment and stated plan reflect my best clinical judgment today based on the combination of historical information, prior notes, and today's exam/ interactions. When time spent is documented, it refers only to time spent today by the signer, or if indicated, combined time spent today by collaborating physician/nurse practitioner. . Cece Betancur Oct 31, 2017 11:01 am
[2017-10-31] MEDS: FAMOTIDINE 20 MG/2 ML VIAL IV PUSH SCH ×2 (11:08→20:01)
--- NOTE | 2017-10-31 11:32 | PD.CONS ---
HPI Service Nephrology Consult Requested By Reason for Consult Acute renal failure, hyperkalemia Primary Care Physician Unknown History of Present Illness This is a 62 y/o male. He came to the ER on 10/27 for cough and shortness of breath, COPD exacerbation, however declined admission and was sent home on Zithromax and prednisone. He was readmitted for altered mental status yesterday. His labs show he is in renal failure, creatinine has been running around 3.5-3.7 with no improvement from admission. A few days ago in the ER his creatinine was 1.94. He has also been persistently hyperkalemic despite treatment with Kayexalate, sodium bicarbonate, IVF, and IV insulin. Today his K is 6.7. He has a left groin vascath placed and was dialyzed urgently today on a 1K bath. We were consulted to assist with management. Apparently he is a DNR/DNI , is on Bipap although ABG shows severe respiratory acidosis with a pH just above 7. Palliative care has been consulted to assist with clarifying goals. He was on meloxicam and lisinopril at home, however is unable to answer questions due to clinical condition. We were consulted to assist with management. (Naomie Lara) Review of Systems ROS Limitations: Clinical Condition, Altered Mental Status, Unresponsive (Naomie Lara) Past Family Social History Allergies: Coded Allergies: No Known Allergies (Unverified , 10/30/17) Past Medical History COPD on home O2 congestive heart failure hypertension CAD spinal stenosis Past Surgical History bilateral TKR PCI with stent Reported Medications Albuterol Neb (Albuterol Sulfate) 2.5 Mg/3 Ml Neb 2.5 Mg NEB Q4HR NEB PRN Prednisone 20 Mg Tab 40 Mg PO DAILY 5 Days Take 40 mg (2 tablets) daily for 5 days Zithromax Z-Rupesh (Azithromycin) 250 Mg Dspk 250 Mg PO DIRECTED 500 MG (2 tabs) day 1, then 1 tab days 2-5. Furosemide 80 Mg Tab 120 Mg PO DAILY Gabapentin 300 Mg Cap 300 Mg PO TID Tizanidine (Tizanidine HCl) 4 Mg Tab 4 Mg PO TID Meloxicam 15 Mg Tab 15 Mg PO DAILY Tamsulosin (Tamsulosin HCl) 0.4 Mg Cap 0.4 Mg PO DAILY Hydrocodone-Acetamin 10-325 mg (Hydrocodone/Acetaminophen) 10 Mg-325 Mg Tablet 1 Tab PO Q6HR PRN Metformin (Metformin HCl) 1,000 Mg Tab 1,000 Mg PO DAILY Amlodipine (Amlodipine Besylate) 10 Mg Tab 10 Mg PO DAILY Metoprolol Tartrate 100 Mg Tab 100 Mg PO BID Morphine ER (Morphine Sulfate) 30 Mg Tab 30 Mg PO BID Lisinopril 40 Mg Tab 40 Mg PO DAILY Active Ordered Medications Current Medications Medications (Trade) Dose Ordered Sig/Kaila Route Start Time Stop Time Status Last Admin (NS Flush) 2 ml UNSCH PRN IVF 10/30/17 13:45 Sodium Chloride 1,000 ml @ 100 mls/hr Q10H IV 10/30/17 17:13 10/30/17 22:21 (Pepcid Inj) 20 mg Q12HR IV PUSH 10/30/17 21:00 10/31/17 11:08 (Duoneb Neb) 1 ampule Q4HR NEB INH 10/30/17 20:00 10/31/17 11:16 (Heparin Inj) 5,000 units Q12H SQ 10/30/17 17:15 10/31/17 05:04 ([facility] Nursing Information) 1 Q361D XX 10/30/17 17:15 (Chlorhexidine 2% Cloth) 3 pack Taper DAILY@04 TOP 10/31/17 04:00 10/27/18 03:59 10/31/17 04:00 (Chlorhexidine 2% Cloth) 3 pack UNSCH PRN TOP 10/30/17 17:15 (SoluMEDROL INJ) 60 mg Q6HR IV PUSH 10/30/17 18:00 10/31/17 11:38 Azithromycin 500 mg/Sodium Chloride 250 ml @ 250 mls/hr Q24H IV 10/30/17 19:00 10/30/17 20:11 Ceftriaxone Sodium 1000 mg/ Sodium Chloride 100 ml @ 200 mls/hr Q24H IV 10/30/17 20:00 10/30/17 20:11 Sodium Chloride 1,000 ml @ 0 mls/hr Q0M PRN OTHER 10/31/17 09:35 (Heparin Inj) 8,000 units UNSCH PRN IV FLUSH 10/31/17 09:45 Sodium Chloride 1,000 ml @ 200 mls/hr Q5H PRN IV 10/31/17 09:35 Sodium Chloride 1,000 ml @ 0 mls/hr Q0M PRN OTHER 10/31/17 10:00 (Mannitol Inj) 12.5 gm UNSCH PRN IV 10/31/17 09:45 Albumin Human 100 ml @ 60 mls/hr UNSCH PRN IV 10/31/17 09:45 (NS Flush) 5 ml UNSCH PRN IV FLUSH 10/31/17 09:45 (Heparin Inj) UNSCH PRN .XX 10/31/17 09:45 (Gentamicin Inj) 20 mg UNSCH PRN OTHER 10/31/17 09:45 (Zofran Inj) 4 mg UNSCH PRN IV PUSH 10/31/17 09:45 (Tylenol) 650 mg UNSCH PRN PO 10/31/17 09:45 (Benadryl) 25 mg UNSCH PRN PO 10/31/17 09:45 (Nitrostat Sl) 0.4 mg UNSCH PRN SL 10/31/17 09:45 (Catapres) 0.1 mg UNSCH PRN PO 10/31/17 09:45 (Gelfoam 12 Mm/7 Mm Top) 1 foam UNSCH PRN TOP 10/31/17 09:45 Family History Unable to obtain Social History unable to obtain (Naomie Lara) Physical Exam Vital Signs Vital Signs Date Time Temp Pulse Resp B/P (MAP) Pulse Ox O2 Delivery O2 Flow Rate FiO2 10/31/17 11:20 93 50 10/31/17 08:39 93 BiPAP 50 10/31/17 08:39 93 50 10/31/17 06:00 83 10/31/17 05:35 94 55 10/31/17 04:11 90 Partial Rebreather 11.00 10/31/17 04:10 87 Venturi Mask 6.00 50 10/31/17 04:00 80 10/31/17 03:23 96 Venturi Mask 6.00 50 10/31/17 03:00 98.2 85 16 125/61 (82) 10/31/17 02:00 83 10/31/17 00:50 96 Non-Rebreather 15.00 10/31/17 00:00 69 10/30/17 23:34 97 55 10/30/17 23:00 98.0 68 16 128/59 (82) 10/30/17 23:00 68 10/30/17 22:00 75 10/30/17 20:22 95 60 10/30/17 20:00 68 10/30/17 19:10 94 40 10/30/17 19:07 97.8 74 18 122/58 (79) 99 10/30/17 19:00 10/30/17 18:03 77 28 113/53 (73) 90 BiPAP 40 10/30/17 17:00 66 28 98/53 (68) 94 BiPAP 50 10/30/17 16:00 66 30 111/53 (72) 93 BiPAP 40 10/30/17 15:00 64 20 109/56 (73) 92 BiPAP 40 10/30/17 14:30 94 40 10/30/17 14:23 BiPAP 10/30/17 14:00 62 28 104/56 (72) 97 BiPAP 40 10/30/17 14:00 Aerosol Mask 8.00 10/30/17 13:52 97 Aerosol Mask 10/30/17 13:52 40 97 Aerosol Mask 7.00 40 10/30/17 13:49 99.1 72 40 106/55 (72) 97 Physical Exam Disheveled Middle aged male on BiPap,eyes open but not responding S1/S2, RRR Lungs clear in upper [place], shallow respirations Abd round, obese, non tender No edema, pulses strong distally Laboratory Laboratory Tests Test 10/30/17 13:50 10/30/17 14:06 10/30/17 15:00 10/30/17 17:48 White Blood Count 17.2 Red Blood Count 4.69 Hemoglobin 13.8 Hematocrit 43.5 Mean Corpuscular Volume 92.9 Mean Corpuscular Hemoglobin 29.4 Mean Corpuscular Hemoglobin Concent 31.6 Red Cell Distribution Width 14.7 Platelet Count 238 Mean Platelet Volume 8.9 Neutrophils (%) (Auto) 86.0 Lymphocytes (%) (Auto) 4.6 Monocytes (%) (Auto) 9.1 Eosinophils (%) (Auto) 0.0 Basophils (%) (Auto) 0.3 Neutrophils # (Auto) 14.8 Lymphocytes # (Auto) 0.8 Monocytes # (Auto) 1.6 Eosinophils # (Auto) 0.0 Basophils # (Auto) 0.1 CBC Comment DIFF FINAL Differential Comment Lactic Acid Level 0.9 1.0 B-Type Natriuretic Peptide 36 Blood Gas Puncture Site RT BRACHIAL Blood Gas Patient Temperature 98.6 Blood Gas HCO3 30 Blood Gas Base Excess 0.8 Blood Gas Oxygen Saturation 96 Arterial Blood pH 7.12 Arterial Blood Partial Pressure CO2 96 Arterial Blood Partial Pressure O2 131 Arterial Blood Oxygen Content 18.7 Arterial Blood Carboxyhemoglobin 0.9 Arterial Blood Methemoglobin 1.1 Blood Gas Hemoglobin 13.7 Oxygen Delivery Device AEROSOL MASK Blood Gas Liter Flow 7 Blood Gas Inspired Oxygen 50 Blood Urea Nitrogen 89 94 Creatinine 3.63 3.72 Random Glucose 152 166 Total Protein 7.7 Albumin 3.7 Calcium Level 8.2 9.0 Magnesium Level 2.7 Alkaline Phosphatase 71 Aspartate Amino Transf (AST/SGOT) 19 Alanine Aminotransferase (ALT/SGPT) 17 Total Bilirubin 0.5 Sodium Level 139 141 Potassium Level 7.5 6.3 Chloride Level 104 104 Carbon Dioxide Level 29.6 32.0 Anion Gap 5 5 Estimat Glomerular Filtration Rate 17 17 Troponin I LESS THAN 0.02 LESS THAN 0.02 Test 10/30/17 18:00 10/30/17 19:00 10/30/17 20:20 10/30/17 23:47 Blood Gas Puncture Site RT RADIAL Blood Gas Patient Temperature 98.6 Blood Gas HCO3 30 Blood Gas Base Excess 1.9 Blood Gas Oxygen Saturation 89 Arterial Blood pH 7.16 Arterial Blood Partial Pressure CO2 88 Arterial Blood Partial Pressure O2 69 Arterial Blood Oxygen Content 17.3 Arterial Blood Carboxyhemoglobin 1.1 Arterial Blood Methemoglobin 1.4 Blood Gas Hemoglobin 13.8 Oxygen Delivery Device BiPAP Blood Gas Ventilator Setting [id number] Blood Gas Inspired Oxygen 40 Nasal Screen MRSA (PCR) MRSA NOT DETECTED Urine Color YELLOW Urine Turbidity CLEAR Urine pH 5.0 Urine Specific [place] 1.014 Urine Protein TRACE Urine Glucose (UA) NEG Urine Ketones NEG Urine Occult Blood NEG Urine Nitrite NEG Urine Bilirubin NEG Urine Urobilinogen LESS THAN 2.0 Urine Leukocyte Esterase NEG Urine WBC 1 Urine Squamous Epithelial Cells 1 Urine Hyaline Casts 20 Urine Mucus FEW Microscopic Urinalysis Comment CULT NOT INDICATED Urine Random Creatinine 185.1 Urine Random Sodium 34 Blood Urea Nitrogen 99 Creatinine 3.42 Random Glucose 192 Calcium Level 8.4 Sodium Level 140 Potassium Level 6.9 Chloride Level 105 Carbon Dioxide Level 26.9 Anion Gap 8 Estimat Glomerular Filtration Rate 18 Troponin I LESS THAN 0.02 Test 10/31/17 04:00 10/31/17 05:22 10/31/17 07:20 10/31/17 09:20 White Blood Count 15.5 19.0 Red Blood Count 4.50 4.46 Hemoglobin 13.3 13.2 Hematocrit 42.6 42.4 Mean Corpuscular Volume 94.6 95.1 Mean Corpuscular Hemoglobin 29.5 29.6 Mean Corpuscular Hemoglobin Concent 31.2 31.1 Red Cell Distribution Width 15.3 15.2 Platelet Count 221 232 Mean Platelet Volume 9.2 9.4 Neutrophils (%) (Auto) 89.3 Lymphocytes (%) (Auto) 5.1 Monocytes (%) (Auto) 5.5 Eosinophils (%) (Auto) 0.0 Basophils (%) (Auto) 0.1 Neutrophils # (Auto) 13.8 Lymphocytes # (Auto) 0.8 Monocytes # (Auto) 0.8 Eosinophils # (Auto) 0.0 Basophils # (Auto) 0.0 CBC Comment DIFF FINAL Differential Comment Blood Urea Nitrogen 97 101 Creatinine 3.45 3.56 Random Glucose 195 193 Total Protein 7.2 Albumin 3.4 Calcium Level 8.5 8.5 Phosphorus Level 8.7 8.4 Magnesium Level 3.0 2.9 Alkaline Phosphatase 79 Aspartate Amino Transf (AST/SGOT) 23 Alanine Aminotransferase (ALT/SGPT) 24 Total Bilirubin 0.3 Sodium Level 140 142 Potassium Level 7.0 6.7 Chloride Level 104 104 Carbon Dioxide Level 29.0 31.7 Anion Gap 7 6 Estimat Glomerular Filtration Rate 18 17 Lactic Acid Level 0.7 Blood Gas Puncture Site RT RADIAL RT RADIAL Blood Gas Patient Temperature 98.6 98.6 Blood Gas HCO3 31 32 Blood Gas Base Excess 1.3 2.3 Blood Gas Oxygen Saturation 95 90 Arterial Blood pH 7.05 7.09 Arterial Blood Partial Pressure CO2 120 111 Arterial Blood Partial Pressure O2 112 67 Arterial Blood Oxygen Content 17.7 17.5 Arterial Blood Carboxyhemoglobin 0.6 0.7 Arterial Blood Methemoglobin 2.0 2.1 Blood Gas Hemoglobin 13.2 13.8 Oxygen Delivery Device PRB MASK BiPAP Blood Gas Liter Flow 11 Blood Gas Ventilator Setting [id number] Blood Gas Inspired Oxygen 50 Date/Time Source Procedure Growth Status 10/30/17 13:55 Blood Peripheral Aerobic Blood Culture - Preliminary NO GROWTH IN 1 DAY Resulted 10/30/17 13:55 Blood Peripheral Anaerobic Blood Culture - Preliminary NO GROWTH IN 1 DAY Resulted (Naomie Lara) Result Diagram: 10/31/17 0720 10/31/17 0720 Imaging Last 72 hours Impressions Abdomen X-Ray 10/31/17 0000 Signed Impressions: Service Date/Time: Tuesday, October 31, 2017 06:56 - CONCLUSION: 1. Left femoral vein catheter with the tip overlying the left pelvis in the expected region of the external iliac vein. 2. NG tube in the upper stomach. 3. Bibasilar areas of consolidation or atelectasis. Andrae Burgess MD Abdomen X-Ray 10/31/17 0000 Signed Impressions: Service Date/Time: Tuesday, October 31, 2017 01:43 - CONCLUSION: 1. Nasogastric type tube the tip projecting in the left upper abdominal quadrant in the expected location of the gastric lumen. 2. Nonobstructive bowel gas pattern Talon May MD Chest X-Ray 10/30/17 1345 Signed Impressions: Service Date/Time: Monday, October 30, 2017 13:49 - CONCLUSION: Cardiomegaly. Andrae Burgess MD Renal Ultrasound 10/30/17 0000 Signed Impressions: Service Date/Time: Monday, October 30, 2017 23:32 - CONCLUSION: 1. Both kidneys are sonographically normal. 2. Bladder is decompressed. Talon May MD (Naomie Lara) Assessment and Plan Problem List: (1) Acute on chronic renal failure ICD Codes: N17.9 - Acute kidney failure, unspecified; N18.9 - Chronic kidney disease, unspecified Status: Acute Plan: His creatinine was 1.94 at the end of last week.(GFR 35, CKD 3) -no proteinuria most likely has underlying nephrosclerosis Etiology of AARON is unclear, may be due to infection. He was also on NSAIDs at home Minimal improvement since admission, may have suffered ATN Renal US negative He is non oliguric with a blue Severe hyperkalemia, see below Reduce IVF to 50 cc/hr, 0.9% NS Monitor vascath site/function. Avoid nephrotoxic agents Repeat labs in AM (2) Respiratory failure ICD Codes: J96.90 - Respiratory failure, unspecified, unspecified whether with hypoxia or hypercapnia Status: Acute Plan: On BiPap, has severe respiratory acidosis and would benefit from intubation but is DNI status Palliative are to assist with goals, CCM and respiratory therapy to assist with settings (3) Hyperkalemia ICD Codes: E87.5 - Hyperkalemia; N18.9 - Chronic kidney disease, unspecified Status: Acute Plan: Due to reduction in GFR He was also on lisinopril HD today on a 1K bath Repeat labs (Naomie Lara) Assessment and Plan patient was seen and examined on 10/31/17. Agree with above assessment and plan. Dialysis for hyperkalemia. Patient is a DNR and DNI. (Mark Byrd MD) Problem Qualifiers (1) Acute on chronic renal failure: Qualified Codes: N17.9 - Acute kidney failure, unspecified; N18.4 - Chronic kidney disease, stage 4 (severe) (2) Respiratory failure: Qualified Codes: J96.02 - Acute respiratory failure with hypercapnia Naomie Lara Oct 31, 2017 11:32 Mark Byrd MD November 01, 2017 11:24
[2017-10-31] MEDS: SODIUM CHLOR 0.9% 1000 ML INJ 1,000 ML IV SCH (17:56)
[2017-10-31] MEDS: AZITHROMYCIN INJ 500 MG in SODIUM CHLOR 0.9% 250 ML INJ 250 ML IV SCH (17:58)
[2017-10-31] MEDS: cefTRIAXone INJ 1,000 MG in SODIUM CHLORIDE 0.9% INJ 100 ML IV SCH (20:00)
--- NOTE | 2017-10-31 21:24 | EKG ---
Date Performed: 10/30/2017 Time Performed: 13:49:44 PTAGE: 62 years EKG: Sinus rhythm POSSIBLE RIGHT VENTRICULAR CONDUCTION DELAY INFERIOR MYOCARDIAL INFARCTION ABNORMAL ECG INTERPRETATI ON BASED ON A DEFAULT AGE OF 40 YEARS NO PREVIOUS TRACING DOCTOR: Jesús Zhang Interpretating Date/Time 10/31/2017 21:22:37
[2017-11-01] VITALS (24 sets, daily range): BP systolic 101–172; BP diastolic 52–122; PULSE 48–95; RESP 19–26; TEMP 97.9–99.7; O2SAT 95–100
[2017-11-01] MEDS: RESP: ALBUTEROL 2.5 MG/IPRATROPIUM 0.5 MG NEB (SCH) INH ×7 (00:09→23:29)
[2017-11-01] MEDS: DEXMEDETOMIDINE INJ 200 MCG in SODIUM CHLORIDE 0.9% INJ 50 ML IV PRN ×3 (02:12→06:17)
[2017-11-01] MEDS: CHLORHEXIDINE GLUCONATE 2 % 1 PACK (2 CLOTHS) TOP SCH (04:00)
[2017-11-01 05:01] LABS: AUTOMATED NEUTROPHIL # 16.6 TH/MM3 (1.8-7.7); BASOPHIL % 0.1 % (0.0-2.0); HEMATOCRIT 40.1 % (39.0-51.0); HEMOGLOBIN 12.7 GM/DL (13.0-17.0); LYMPH % 2.1 % (9.0-44.0); LYMPHOCYTE # 0.4 TH/MM3 (1.0-4.8); MEAN CELL VOLUME 93.3 FL (80.0-100.0); MEAN CORPUSCULAR HEMOGLOBIN 29.6 PG (27.0-34.0); MEAN CORPUSCULAR HGB CONC 31.7 % (32.0-36.0); MEAN PLATELET VOLUME 9.2 FL (7.0-11.0); MONO % 6.1 % (0.0-8.0); MONOCYTE # 1.1 TH/MM3 (0-0.9); NEUT % 91.7 % (16.0-70.0); PLATELET COUNT 193 TH/MM3 (150-450); RED CELL DISTRIBUTION WIDTH 14.9 % (11.6-17.2); WHITE BLOOD COUNT 18.1 TH/MM3 (4.0-11.0)
[2017-11-01] MEDS: methylPREDNISolone SOD SUCC 40 MG/1 ML VIAL IV PUSH SCH ×4 (05:05→23:15)
[2017-11-01 05:45] LABS: ALBUMIN 2.9 GM/DL (3.4-5.0); ALKALINE PHOSPHATASE 65 U/L (45-117); ALT (GPT) 19 U/L (12-78); AST (GOT) 14 U/L (15-37); BLOOD UREA NITROGEN 69 MG/DL (7-18); CALCIUM 7.9 MG/DL (8.5-10.1); CHLORIDE 110 MEQ/L (98-107); CREATININE 1.89 MG/DL (0.60-1.30); GLOMERULAR FILTRATION RATE 36 ML/MIN (>89); GLUCOSE,RANDOM 166 MG/DL (74-106); MAGNESIUM 2.4 MG/DL (1.5-2.5); PHOSPHORUS 3.7 MG/DL (2.5-4.9); SODIUM (NA) 149 MEQ/L (136-145); TOTAL BILIRUBIN ADULT 0.2 MG/DL (0.2-1.0); TOTAL PROTEIN 6.7 GM/DL (6.4-8.2)
[2017-11-01] MEDS: HEPARIN SODIUM - SQ 10,000 UNITS/ML VIAL SQ SCH ×2 (05:53→18:42)
[2017-11-01] MEDS: FAMOTIDINE 20 MG/2 ML VIAL IV PUSH SCH ×2 (08:39→20:06)
[2017-11-01 08:41] LABS: BANDS 14 % (0-6); LYMPHOCYTES 3 % (9-44); MONOCYTES 4 % (0-8); NEUTROPHIL # MANUAL DIFF 16.8 TH/MM3 (1.8-7.7); POLYS (SEG NEUTROPHILS) 79 % (16-70)
[2017-11-01] MEDS: DEXMEDETOMIDINE INJ 1,000 MCG in SODIUM CHLOR 0.9% 250 ML INJ 240 ML IV PRN ×2 (09:50→23:40)
--- NOTE | 2017-11-01 11:40 | HHI.NPPN ---
Subjective Renal Failure: Acute Interval History He remains unresponsive on BiPap. Potassium has corrected, dialyzed yesterday. He is non oliguric. Renal function is better. (Naomie Lara) Review of Systems General General Remarks unable to obtain (Naomie Lara) Objective Data Data Vital Signs Date Time Temp Pulse Resp B/P (MAP) Pulse Ox O2 Delivery O2 Flow Rate FiO2 11/01/17 11:14 98 50 11/01/17 11:00 99.0 65 20 137/66 (89) 98 11/01/17 11:00 99.0 11/01/17 10:00 60 11/01/17 08:00 62 11/01/17 07:49 98 50 11/01/17 07:00 98.8 61 19 101/52 (68) 97 11/01/17 06:00 62 11/01/17 04:10 96 50 11/01/17 04:00 67 11/01/17 03:00 99.7 91 26 172/122 (139) 95 11/01/17 02:00 95 11/01/17 01:11 96 50 11/01/17 00:00 78 10/31/17 23:00 98.5 79 17 133/60 (84) 94 10/31/17 22:10 96 50 10/31/17 22:00 77 10/31/17 20:00 90 10/31/17 19:51 94 BiPAP 50 10/31/17 19:50 94 50 10/31/17 19:00 99.7 110 19 124/62 (82) 94 10/31/17 18:00 84 10/31/17 16:03 94 50 10/31/17 16:00 80 10/31/17 15:00 99.3 96 24 167/73 (104) 95 10/31/17 14:00 76 10/31/17 12:00 76 (Naomie Lara) -: 11/01/17 0327 11/01/17 0327 Imaging Last 72 hours Impressions Abdomen X-Ray 10/31/17 0000 Signed Impressions: Service Date/Time: Tuesday, October 31, 2017 06:56 - CONCLUSION: 1. Left femoral vein catheter with the tip overlying the left pelvis in the expected region of the external iliac vein. 2. NG tube in the upper stomach. 3. Bibasilar areas of consolidation or atelectasis. Andrae Burgess MD Abdomen X-Ray 10/31/17 0000 Signed Impressions: Service Date/Time: Tuesday, October 31, 2017 01:43 - CONCLUSION: 1. Nasogastric type tube the tip projecting in the left upper abdominal quadrant in the expected location of the gastric lumen. 2. Nonobstructive bowel gas pattern Talon May MD Chest X-Ray 10/30/17 1345 Signed Impressions: Service Date/Time: Monday, October 30, 2017 13:49 - CONCLUSION: Cardiomegaly. Andrae Burgess MD Renal Ultrasound 10/30/17 0000 Signed Impressions: Service Date/Time: Monday, October 30, 2017 23:32 - CONCLUSION: 1. Both kidneys are sonographically normal. 2. Bladder is decompressed. Talon May MD Drip Comment Precedex (Naomie Lara B. DRAW END HAND) Physical Exam General Appearance: Comfortable, Malnourished Appearance Remarks disheveled, on BiPap, not responding. (JaneNaomie B. DRAW END HAND) Throat Throat Exam: Oral Mucosa [place] & Moist (JaneNaomie B. DRAW END HAND) Pulmonary Resp Exam: No Distress, Decreased Bases, Diminished Breath Sounds (JaneNaomie B. DRAW END HAND) Cardiology CV Exam: Normal Sinus Rhythm, Good Perfusion (JaneNaomie B. DRAW END HAND) Gastrointestinal/Abdomen GI Exam: Soft, Non-Tender, Bowel Sounds Present (Naomie Lara B. DRAW END HAND) Musculoskeletal MS Exam: Joints Intact, Normal Tone, Unable to Ambulate (JaneNaomie B. DRAW END HAND) Integumentary Skin Exam: Warm, Dry, Intact (JaneNaomie B. DRAW END HAND) Extremeties Extremities Exam: No Edema, Pedal Pulses Palpable (JaneNaomie B. DRAW END HAND) Neurologic Neuro Exam: Obtunded, Unresponsive (Naomie Lara B. DRAW END HAND) Assessment/Plan Assessment Summary: AARON/Acute Renal Failure, Hypertension Problem List: (1) Acute on chronic renal failure ICD Codes: N17.9 - Acute kidney failure, unspecified; N18.9 - Chronic kidney disease, unspecified Status: Acute Plan: He has underlying CKD 3, most likely due to nephrosclerosis Required emergent dialysis yesterday due to hyperkalemia Renal function has improved. He is non oliguric Repeat labs Change IVF to 1/2 NS @ 75 cc/hr Monitor vascath site/function. Avoid nephrotoxic agents Repeat labs in AM (2) Respiratory failure ICD Codes: J96.90 - Respiratory failure, unspecified, unspecified whether with hypoxia or hypercapnia Status: Acute Plan: On BiPap, has severe respiratory acidosis and would benefit from intubation but is DNI status Palliative are to assist with goals, CCM and respiratory therapy to assist with settings (3) Hyperkalemia ICD Codes: E87.5 - Hyperkalemia; N18.9 - Chronic kidney disease, unspecified Status: Acute Plan: Due to reduction in GFR He was also on lisinopril Improved, repeat labs. (Naomie Lara) Plan patient was seen and examined. Non oliguric, may not need dialysis again. Hyperkalemia has improved. Remains on BiPAP. Patient is DNR/DNI (Mark Byrd MD) Problem Qualifiers (1) Acute on chronic renal failure: Qualified Codes: N17.9 - Acute kidney failure, unspecified; N18.4 - Chronic kidney disease, stage 4 (severe) (2) Respiratory failure: Qualified Codes: J96.02 - Acute respiratory failure with hypercapnia Naomie Lara November 01, 2017 11:40 Mark Byrd MD November 01, 2017 13:50
[2017-11-01] MEDS: SODIUM CHLOR 0.45% 1000 ML INJ 1,000 ML IV SCH (11:49)
--- NOTE | 2017-11-01 17:17 | HHI.CCPN ---
Subjective Remarks/Hospital Course 10/30: 62-year-old gentleman with history of COPD on home O2, congestive heart failure, hypertension, CAD, spinal stenosis now now brought to the emergency room with altered mental status and respiratory distress. Patient presented on October 27 to [facility] emergency with worsening shortness of breath. He was found to have acute COPD exacerbation but patient declined admission. He was treated with prednisone and azithromycin and bronchodilators and he was discharged home. Over the last few days patient had worsening shortness of breath associated with cough and since yesterday patient became increasingly lethargic. Over the night patient became very poorly responsive therefore today daughter called EVAC patient was brought to the emergency room. On ED arrival patient was unresponsive. Blood gas done showed severe respiratory acidosis. Moreover, patient was found to have acute hyperkalemia and acute kidney injury, potassium up to 7.5. Patient was treated with Solu- Medrol, DuoNeb, insulin and dextrose, Kayexalate, calcium gluconate and bicarbonate. Stat consult for nephrology was placed in ED physician is waiting for callback. [facility] was consulted for ICU admission. Patient was not intubated because he has a standing DNR. Patient was immediately seen in the emergency room, daughter present at bedside. Patient is on BiPAP, arousable, following some commands. Per daughter, patient has a standing DNR/DNI and her sister who has POA was contacted by emergency room physician to complete the DNR form. 10/31: Over the night the patient was transitioned to facemask with subsequent worsening and hypercapnia, then placed back on BiPAP. Currently patient on BiPAP 15/5 at 55% O2. Patient is arousable but does not follow commands. Due to elevated potassium despite medical measures and HD catheter was placed and patient will undergo emergent hemodialysis. 11/01: Late entry note. Patient seen at 11:15 AM. Overnight the patient was noted to have progressive alteration in mental status, pulling out IVs. Patient was transitioned onto Precedex with family at bedside. Patient continues on BiPAP. Objective Vital Signs Date Time Temp Pulse Resp B/P (MAP) Pulse Ox O2 Delivery O2 Flow Rate FiO2 11/01/17 16:00 61 11/01/17 15:00 98.0 20 98 11/01/17 11:14 50 10/31/17 19:51 BiPAP 10/31/17 04:11 11.00 Intake and Output 11/01/17 11/01/17 11/02/17 08:00 16:00 00:00 Intake Total 0 ml 700 ml Output Total 1725 ml Balance -1725 ml 700 ml Result Diagram: 11/01/17 0327 11/01/17 0327 Other Results Laboratory Tests Test 11/01/17 05:03 Blood Gas Puncture Site RT RADIAL Blood Gas Patient Temperature 98.6 Blood Gas HCO3 36 mmol/L (22-26) Blood Gas Base Excess 8.1 mmol/L (-2-2) Blood Gas Oxygen Saturation 94 % (90-100) Arterial Blood pH 7.22 (7.380-7.420) Arterial Blood Partial Pressure CO2 91 mmHg (38-42) Arterial Blood Partial Pressure O2 92 mmHg (61-120) Arterial Blood Oxygen Content 16.5 Vol % (12.0-20.0) Arterial Blood Carboxyhemoglobin 0.8 % (0-4) Arterial Blood Methemoglobin 1.8 % (0-2) Blood Gas Hemoglobin 12.5 G/DL (12.0-16.0) Oxygen Delivery Device BIPAP 20/+5/ Blood Gas Inspired Oxygen 50 % Imaging Last Impressions Chest X-Ray 10/30/17 1345 Signed Impressions: Service Date/Time: Monday, October 30, 2017 13:49 - CONCLUSION: Cardiomegaly. Andrae Burgess MD Objective Remarks General - This is a middle-aged gentleman, lethargic, arousable, ill-appearing, currently on Precedex HEENT - pupils are equal, reactive, sclerae are anicteric, neck is supple, no rigidity, no JVD, no carotid bruit CV - irregular heart sound, systolic ejection murmur at the apex Chest - coarse breath sounds bilateral, scattered wheezes, decreased air entry Abdomen - soft, not distended, non-tender, BS present, no hepatomegaly, no splenomegaly Skin - no rashes, no cyanosis, multiple tattoos Extremities - warm, no edema, + peripheral pulses, no clubbing Neuro -previously agitated currently on low-dose Precedex infusion does not follow commands A/P Assessment and Plan 1. Acute hypercapnic respiratory failure 2. Acute COPD exacerbation 3. Acute hyperkalemia 4. Acute kidney injury 5. History of CAD with stent placement 6. History of hypertension 7. History of spinal stenosis on chronic opiates 1. Continue BiPAP, settings readjusted, BiPAP increased to 15, FiO2 decreased to 0.4 2. Start Solu-Medrol 60 mg every 6 hours and scheduled bronchodilators every 4 hours 3. Continue Empiric ceftriaxone and azithromycin 4. Immediate nephrology consult for possible hemodialysis 5. Patient received medical management for hyperkalemia and repeat potassium WNL 6. X-ray and ABGs when clinically indicated 7. Serial cardiac enzymes 8. Hold pain medication in the setting of poor mental status 9. Fluid bolus followed by IV hydration 10. Check lactic acid since patient was on metformin now has AARON 11. GI and DVT prophylaxis 12. DNR per patient's wishes expressed by daughter 13. Maintain NPO 14. Maintain Toney catheter for accurate urine output measurement Patient is critically ill and at high risk for further deterioration and . Level 3 follow up Physician Dior Harrison MD November 01, 2017 17:17
[2017-11-01] MEDS: AZITHROMYCIN INJ 500 MG in SODIUM CHLOR 0.9% 250 ML INJ 250 ML IV SCH (18:42)
--- NOTE | 2017-11-01 19:29 | HHI.HCPN ---
Reason for visit a. To assist with evaluation and management of symptoms including: Dyspnea, altered mental status, Pain b. To assist medical decision maker(s) with: better understanding of current medical conditions; weighing benefits/burdens of medical treatment options; making medical treatment decisions. Subjective/Interval History Patient seen for follow up of dyspnea, altered mental status and pain. Remains on bipap, requiring Precedex for agitation control. ABG at 17:20 today shows PH up to 7.29 from 7.22, PC02 at 73, from 91 and PO2 at 204 on 50% FI02. Patient is resting comfortably. Respiratory rate is eupneic. He remains on duoneb, azithromycin, solumedrol and ceftriaxone. He is not arousing to verbal or tactile stimuli at this time. He does withdraw to noxious stimuli. Overnight he was agitated and confused, pulling out IV's, necessitating the initiation of Precedex. His mental status cannot be determined at this time. He has a history of chronic pain, for which he takes oral morphine and hydrocodone/tylenol. Given his fragile respiratory status, pain medication is being withheld to prevent depressing respirations. He is exhibiting no pain at this time. . Family/friend interactions S/W daughter, Alix in a.m. to provide update on patient status. Provided lab value trends and patient comfort status. She states relief at the improvement in his current labs and comfort level, but is aware that further decline is a possibility and patient may not be able to maintain his respiratory status without bipap support. As she is the [facility], further decisions would be made by her, but she is working with both her sisters to make these decisions. S/W daughter, Gemma, in the afternoon for further update. Related labs and comfort level to her, but also answered questions regarding his ability to maintain C02 levels off bipap. Will continue close contact to keep family members updated for potential decisions. . Advance Directives Living Will: Never completed Health Care Surrogate: Copy in medical record Durable Power of Production Service Manager: Never completed Advance Directive Specifics Date completed: Form completed, but undated. . Health Care Surrogate(s): He names his daughter Alix Scruggs as his primary healthcare decision maker with his daughter Gemma Monroe as his alternate. . Documented care wishes: No living will available. . Objective Vital Signs Date Time Temp Pulse Resp B/P (MAP) Pulse Ox O2 Delivery O2 Flow Rate FiO2 11/01/17 17:36 98 50 11/01/17 16:00 61 11/01/17 15:00 98.0 52 20 98 11/01/17 14:00 52 11/01/17 12:00 57 11/01/17 11:14 98 50 11/01/17 11:00 99.0 65 20 137/66 (89) 98 11/01/17 10:00 60 11/01/17 08:00 62 11/01/17 07:49 98 50 11/01/17 07:00 98.8 61 19 101/52 (68) 97 11/01/17 06:00 62 11/01/17 04:10 96 50 11/01/17 04:00 67 11/01/17 03:00 99.7 91 26 172/122 (139) 95 11/01/17 02:00 95 11/01/17 01:11 96 50 11/01/17 00:00 78 10/31/17 23:00 98.5 79 17 133/60 (84) 94 10/31/17 22:10 96 50 10/31/17 22:00 77 10/31/17 20:00 90 10/31/17 19:51 94 BiPAP 50 10/31/17 19:50 94 50 Physical Exam CONSTITUTIONAL/GENERAL: This is an obese male, on BiPAP, no acute distress. TUBES/LINES/DRAINS: Left femoral Vas-Cath, left ACF PIV, right hand PIV. BiPAP , Toney catheter. SKIN: No jaundice, rashes, or lesions. Ecchymoses on upper extremities. No wounds seen anteriorly. Skin temperature appropriate. Not diaphoretic. HEAD: Atraumatic. Normocephalic. EYES: Pupils equal and round and reactive. Extraocular motions intact. No scleral icterus. No injection or drainage. Fundi not examined. ENT: Hearing grossly normal. Nose without bleeding or purulent drainage. Throat without visible erythema, exudates, masses, or lesions. NECK: Trachea midline. Supple, nontender. No palpable thyroid enlargement or nodularity. CARDIOVASCULAR: Regular rate and rhythm without murmurs, gallops, or rubs. No JVD. Peripheral pulses symmetric. RESPIRATORY/CHEST: Lungs are coarse with wheezing throughout all lung lee. Symmetric lung expansion, eupneic respiratory rate. GASTROINTESTINAL: Abdomen protuberant, slightly firm, positive bowel sounds. GENITOURINARY: Without palpable bladder distension. Toney catheter in place. MUSCULOSKELETAL: Extremities without clubbing, cyanosis, or edema. No joint tenderness or effusion noted. No calf tenderness. No mottling or clubbing. LYMPHATICS: No palpable cervical or supraclavicular adenopathy. NEUROLOGICAL: Sedated, withdraw to pain X 4 PSYCHIATRIC: Sedated. . Diagnostic Tests Laboratory Laboratory Tests Test 10/30/17 13:50 10/30/17 14:06 10/30/17 15:00 10/30/17 17:48 White Blood Count 17.2 TH/MM3 (4.0-11.0) Red Blood Count 4.69 MIL/MM3 (4.50-5.90) Hemoglobin 13.8 GM/DL (13.0-17.0) Hematocrit 43.5 % (39.0-51.0) Mean Corpuscular Volume 92.9 FL (80.0-100.0) Mean Corpuscular Hemoglobin 29.4 PG (27.0-34.0) Mean Corpuscular Hemoglobin Concent 31.6 % (32.0-36.0) Red Cell Distribution Width 14.7 % (11.6-17.2) Platelet Count 238 TH/MM3 (150-450) Mean Platelet Volume 8.9 FL (7.0-11.0) Neutrophils (%) (Auto) 86.0 % (16.0-70.0) Lymphocytes (%) (Auto) 4.6 % (9.0-44.0) Monocytes (%) (Auto) 9.1 % (0.0-8.0) Eosinophils (%) (Auto) 0.0 % (0.0-4.0) Basophils (%) (Auto) 0.3 % (0.0-2.0) Neutrophils # (Auto) 14.8 TH/MM3 (1.8-7.7) Lymphocytes # (Auto) 0.8 TH/MM3 (1.0-4.8) Monocytes # (Auto) 1.6 TH/MM3 (0-0.9) Eosinophils # (Auto) 0.0 TH/MM3 (0-0.4) Basophils # (Auto) 0.1 TH/MM3 (0-0.2) CBC Comment DIFF FINAL Differential Comment Lactic Acid Level 0.9 mmol/L (0.4-2.0) 1.0 mmol/L (0.4-2.0) B-Type Natriuretic Peptide 36 PG/ML (0-100) Blood Gas Puncture Site RT BRACHIAL Blood Gas Patient Temperature 98.6 Blood Gas HCO3 30 mmol/L (22-26) Blood Gas Base Excess 0.8 mmol/L (-2-2) Blood Gas Oxygen Saturation 96 % (90-100) Arterial Blood pH 7.12 (7.380-7.420) Arterial Blood Partial Pressure CO2 96 mmHg (38-42) Arterial Blood Partial Pressure O2 131 mmHG (61-120) Arterial Blood Oxygen Content 18.7 Vol % (12.0-20.0) Arterial Blood Carboxyhemoglobin 0.9 % (0-4) Arterial Blood Methemoglobin 1.1 % (0-2) Blood Gas Hemoglobin 13.7 G/DL (12.0-16.0) Oxygen Delivery Device AEROSOL MASK Blood Gas Liter Flow 7 L/M Blood Gas Inspired Oxygen 50 % Blood Urea Nitrogen 89 MG/DL (7-18) 94 MG/DL (7-18) Creatinine 3.63 MG/DL (0.60-1.30) 3.72 MG/DL (0.60-1.30) Random Glucose 152 MG/DL (74-106) 166 MG/DL (74-106) Total Protein 7.7 GM/DL (6.4-8.2) Albumin 3.7 GM/DL (3.4-5.0) Calcium Level 8.2 MG/DL (8.5-10.1) 9.0 MG/DL (8.5-10.1) Magnesium Level 2.7 MG/DL (1.5-2.5) Alkaline Phosphatase 71 U/L (45-117) Aspartate Amino Transf (AST/SGOT) 19 U/L (15-37) Alanine Aminotransferase (ALT/SGPT) 17 U/L (12-78) Total Bilirubin 0.5 MG/DL (0.2-1.0) Sodium Level 139 MEQ/L (136-145) 141 MEQ/L (136-145) Potassium Level 7.5 MEQ/L (3.5-5.1) 6.3 MEQ/L (3.5-5.1) Chloride Level 104 MEQ/L (98-107) 104 MEQ/L (98-107) Carbon Dioxide Level 29.6 MEQ/L (21.0-32.0) 32.0 MEQ/L (21.0-32.0) Anion Gap 5 MEQ/L (5-15) 5 MEQ/L (5-15) Estimat Glomerular Filtration Rate 17 ML/MIN (>89) 17 ML/MIN (>89) Troponin I LESS THAN 0.02 NG/ML LESS THAN 0.02 NG/ML Test 10/30/17 18:00 10/30/17 19:00 10/30/17 20:20 10/30/17 23:47 Blood Gas Puncture Site RT RADIAL Blood Gas Patient Temperature 98.6 Blood Gas HCO3 30 mmol/L (22-26) Blood Gas Base Excess 1.9 mmol/L (-2-2) Blood Gas Oxygen Saturation 89 % (90-100) Arterial Blood pH 7.16 (7.380-7.420) Arterial Blood Partial Pressure CO2 88 mmHg (38-42) Arterial Blood Partial Pressure O2 69 mmHg (61-120) Arterial Blood Oxygen Content 17.3 Vol % (12.0-20.0) Arterial Blood Carboxyhemoglobin 1.1 % (0-4) Arterial Blood Methemoglobin 1.4 % (0-2) Blood Gas Hemoglobin 13.8 G/DL (12.0-16.0) Oxygen Delivery Device BiPAP Blood Gas Ventilator Setting [id number]/[id number] Blood Gas Inspired Oxygen 40 % Nasal Screen MRSA (PCR) MRSA NOT DETECTED (NOT Urine Color YELLOW (YELLW/STRAW) Urine Turbidity CLEAR (CLEAR) Urine pH 5.0 (5.0-8.5) Urine Specific [place] 1.014 (1.002-1.035) Urine Protein TRACE mg/dL (NEG-TRACE) Urine Glucose (UA) NEG mg/dL (NEG) Urine Ketones NEG mg/dL (NEG) Urine Occult Blood NEG (NEG) Urine Nitrite NEG (NEG) Urine Bilirubin NEG (NEG) Urine Urobilinogen LESS THAN 2.0 MG/DL (LESS Urine Leukocyte Esterase NEG (NEG) Urine WBC 1 /hpf (0-5) Urine Squamous Epithelial Cells 1 /hpf (0-5) Urine Hyaline Casts 20 /lpf (RARE) Urine Mucus FEW /lpf (OCC) Microscopic Urinalysis Comment CULT NOT INDICATED Urine Random Creatinine 185.1 MG/DL Urine Random Sodium 34 MEQ/L Blood Urea Nitrogen 99 MG/DL (7-18) Creatinine 3.42 MG/DL (0.60-1.30) Random Glucose 192 MG/DL (74-106) Calcium Level 8.4 MG/DL (8.5-10.1) Sodium Level 140 MEQ/L (136-145) Potassium Level 6.9 MEQ/L (3.5-5.1) Chloride Level 105 MEQ/L (98-107) Carbon Dioxide Level 26.9 MEQ/L (21.0-32.0) Anion Gap 8 MEQ/L (5-15) Estimat Glomerular Filtration Rate 18 ML/MIN (>89) Troponin I LESS THAN 0.02 NG/ML Test 10/31/17 04:00 10/31/17 05:22 10/31/17 07:20 10/31/17 08:30 White Blood Count 15.5 TH/MM3 (4.0-11.0) 19.0 TH/MM3 (4.0-11.0) Red Blood Count 4.50 MIL/MM3 (4.50-5.90) 4.46 MIL/MM3 (4.50-5.90) Hemoglobin 13.3 GM/DL (13.0-17.0) 13.2 GM/DL (13.0-17.0) Hematocrit 42.6 % (39.0-51.0) 42.4 % (39.0-51.0) Mean Corpuscular Volume 94.6 FL (80.0-100.0) 95.1 FL (80.0-100.0) Mean Corpuscular Hemoglobin 29.5 PG (27.0-34.0) 29.6 PG (27.0-34.0) Mean Corpuscular Hemoglobin Concent 31.2 % (32.0-36.0) 31.1 % (32.0-36.0) Red Cell Distribution Width 15.3 % (11.6-17.2) 15.2 % (11.6-17.2) Platelet Count 221 TH/MM3 (150-450) 232 TH/MM3 (150-450) Mean Platelet Volume 9.2 FL (7.0-11.0) 9.4 FL (7.0-11.0) Neutrophils (%) (Auto) 89.3 % (16.0-70.0) Lymphocytes (%) (Auto) 5.1 % (9.0-44.0) Monocytes (%) (Auto) 5.5 % (0.0-8.0) Eosinophils (%) (Auto) 0.0 % (0.0-4.0) Basophils (%) (Auto) 0.1 % (0.0-2.0) Neutrophils # (Auto) 13.8 TH/MM3 (1.8-7.7) Lymphocytes # (Auto) 0.8 TH/MM3 (1.0-4.8) Monocytes # (Auto) 0.8 TH/MM3 (0-0.9) Eosinophils # (Auto) 0.0 TH/MM3 (0-0.4) Basophils # (Auto) 0.0 TH/MM3 (0-0.2) CBC Comment DIFF FINAL Differential Comment Blood Urea Nitrogen 97 MG/DL (7-18) 101 MG/DL (7-18) Creatinine 3.45 MG/DL (0.60-1.30) 3.56 MG/DL (0.60-1.30) Random Glucose 195 MG/DL (74-106) 193 MG/DL (74-106) Total Protein 7.2 GM/DL (6.4-8.2) Albumin 3.4 GM/DL (3.4-5.0) Calcium Level 8.5 MG/DL (8.5-10.1) 8.5 MG/DL (8.5-10.1) Phosphorus Level 8.7 MG/DL (2.5-4.9) 8.4 MG/DL (2.5-4.9) Magnesium Level 3.0 MG/DL (1.5-2.5) 2.9 MG/DL (1.5-2.5) Alkaline Phosphatase 79 U/L (45-117) Aspartate Amino Transf (AST/SGOT) 23 U/L (15-37) Alanine Aminotransferase (ALT/SGPT) 24 U/L (12-78) Total Bilirubin 0.3 MG/DL (0.2-1.0) Sodium Level 140 MEQ/L (136-145) 142 MEQ/L (136-145) Potassium Level 7.0 MEQ/L (3.5-5.1) 6.7 MEQ/L (3.5-5.1) Chloride Level 104 MEQ/L (98-107) 104 MEQ/L (98-107) Carbon Dioxide Level 29.0 MEQ/L (21.0-32.0) 31.7 MEQ/L (21.0-32.0) Anion Gap 7 MEQ/L (5-15) 6 MEQ/L (5-15) Estimat Glomerular Filtration Rate 18 ML/MIN (>89) 17 ML/MIN (>89) Lactic Acid Level 0.7 mmol/L (0.4-2.0) Blood Gas Puncture Site RT RADIAL Blood Gas Patient Temperature 98.6 Blood Gas HCO3 31 mmol/L (22-26) Blood Gas Base Excess 1.3 mmol/L (-2-2) Blood Gas Oxygen Saturation 95 % (90-100) Arterial Blood pH 7.05 (7.380-7.420) Arterial Blood Partial Pressure CO2 120 mmHg (38-42) Arterial Blood Partial Pressure O2 112 mmHg (61-120) Arterial Blood Oxygen Content 17.7 Vol % (12.0-20.0) Arterial Blood Carboxyhemoglobin 0.6 % (0-4) Arterial Blood Methemoglobin 2.0 % (0-2) Blood Gas Hemoglobin 13.2 G/DL (12.0-16.0) Oxygen Delivery Device PRB MASK Blood Gas Liter Flow 11 L/M Hepatitis A IgM Antibody NONREACTIVE (NONREACTIVE) Hepatitis B Surface Antigen NONREACTIVE (NONREACTIVE) Hepatitis B Core IgM Antibody NONREACTIVE (NONREACTIVE) Hepatitis C IgG Antibody NONREACTIVE (NONREACTIVE) Test 10/31/17 09:20 10/31/17 13:15 10/31/17 14:00 11/01/17 03:27 Blood Gas Puncture Site RT RADIAL LT RADIAL Blood Gas Patient Temperature 98.6 98.6 Blood Gas HCO3 32 mmol/L (22-26) 33 mmol/L (22-26) Blood Gas Base Excess 2.3 mmol/L (-2-2) 3.9 mmol/L (-2-2) Blood Gas Oxygen Saturation 90 % (90-100) 89 % (90-100) Arterial Blood pH 7.09 (7.380-7.420) 7.14 (7.380-7.420) Arterial Blood Partial Pressure CO2 111 mmHg (38-42) 100 mmHg (38-42) Arterial Blood Partial Pressure O2 67 mmHg (61-120) 69 mmHg (61-120) Arterial Blood Oxygen Content 17.5 Vol % (12.0-20.0) 17.2 Vol % (12.0-20.0) Arterial Blood Carboxyhemoglobin 0.7 % (0-4) 0.7 % (0-4) Arterial Blood Methemoglobin 2.1 % (0-2) 1.8 % (0-2) Blood Gas Hemoglobin 13.8 G/DL (12.0-16.0) 13.7 G/DL (12.0-16.0) Oxygen Delivery Device BiPAP BiPAP Blood Gas Ventilator Setting [id number] IPAP 20/EPAP 5 Blood Gas Inspired Oxygen 50 % 50 % Potassium Level 5.2 MEQ/L (3.5-5.1) 4.4 MEQ/L (3.5-5.1) White Blood Count 18.1 TH/MM3 (4.0-11.0) Red Blood Count 4.30 MIL/MM3 (4.50-5.90) Hemoglobin 12.7 GM/DL (13.0-17.0) Hematocrit 40.1 % (39.0-51.0) Mean Corpuscular Volume 93.3 FL (80.0-100.0) Mean Corpuscular Hemoglobin 29.6 PG (27.0-34.0) Mean Corpuscular Hemoglobin Concent 31.7 % (32.0-36.0) Red Cell Distribution Width 14.9 % (11.6-17.2) Platelet Count 193 TH/MM3 (150-450) Mean Platelet Volume 9.2 FL (7.0-11.0) Neutrophils (%) (Auto) 91.7 % (16.0-70.0) Lymphocytes (%) (Auto) 2.1 % (9.0-44.0) Monocytes (%) (Auto) 6.1 % (0.0-8.0) Eosinophils (%) (Auto) 0.0 % (0.0-4.0) Basophils (%) (Auto) 0.1 % (0.0-2.0) Neutrophils # (Auto) 16.6 TH/MM3 (1.8-7.7) Lymphocytes # (Auto) 0.4 TH/MM3 (1.0-4.8) Monocytes # (Auto) 1.1 TH/MM3 (0-0.9) Eosinophils # (Auto) 0.0 TH/MM3 (0-0.4) Basophils # (Auto) 0.0 TH/MM3 (0-0.2) CBC Comment AUTO DIFF Differential Total Cells Counted 100 Neutrophils % (Manual) 79 % (16-70) Band Neutrophils % 14 % (0-6) Lymphocytes % 3 % (9-44) Monocytes % 4 % (0-8) Neutrophils # (Manual) 16.8 TH/MM3 (1.8-7.7) Differential Comment FINAL DIFF MANUAL Platelet Estimate NORMAL (NORMAL) Platelet Morphology Comment NORMAL (NORMAL) Blood Urea Nitrogen 69 MG/DL (7-18) Creatinine 1.89 MG/DL (0.60-1.30) Random Glucose 166 MG/DL (74-106) Total Protein 6.7 GM/DL (6.4-8.2) Albumin 2.9 GM/DL (3.4-5.0) Calcium Level 7.9 MG/DL (8.5-10.1) Phosphorus Level 3.7 MG/DL (2.5-4.9) Magnesium Level 2.4 MG/DL (1.5-2.5) Alkaline Phosphatase 65 U/L (45-117) Aspartate Amino Transf (AST/SGOT) 14 U/L (15-37) Alanine Aminotransferase (ALT/SGPT) 19 U/L (12-78) Total Bilirubin 0.2 MG/DL (0.2-1.0) Sodium Level 149 MEQ/L (136-145) Chloride Level 110 MEQ/L (98-107) Carbon Dioxide Level 35.0 MEQ/L (21.0-32.0) Anion Gap 4 MEQ/L (5-15) Estimat Glomerular Filtration Rate 36 ML/MIN (>89) Test 11/01/17 05:03 11/01/17 17:20 Blood Gas Puncture Site RT RADIAL LT RADIAL Blood Gas Patient Temperature 98.6 98.6 Blood Gas HCO3 36 mmol/L (22-26) 34 mmol/L (22-26) Blood Gas Base Excess 8.1 mmol/L (-2-2) 7.7 mmol/L (-2-2) Blood Gas Oxygen Saturation 94 % (90-100) 97 % (90-100) Arterial Blood pH 7.22 (7.380-7.420) 7.29 (7.380-7.420) Arterial Blood Partial Pressure CO2 91 mmHg (38-42) 73 mmHg (38-42) Arterial Blood Partial Pressure O2 92 mmHg (61-120) 204 mmHg (61-120) Arterial Blood Oxygen Content 16.5 Vol % (12.0-20.0) 18.2 Vol % (12.0-20.0) Arterial Blood Carboxyhemoglobin 0.8 % (0-4) 0.6 % (0-4) Arterial Blood Methemoglobin 1.8 % (0-2) 1.7 % (0-2) Blood Gas Hemoglobin 12.5 G/DL (12.0-16.0) 13.1 G/DL (12.0-16.0) Oxygen Delivery Device BIPAP 20/+5/ BIPAP Blood Gas Inspired Oxygen 50 % 50 % Blood Gas Ventilator Setting IPAP 20/EPAP5 Result Diagram: 11/01/17 0327 11/01/17 0327 Microbiology Microbiology Date/Time Source Procedure Growth Status 10/30/17 13:55 Blood Peripheral Aerobic Blood Culture - Preliminary NO GROWTH IN 2 DAYS Resulted 10/30/17 13:55 Blood Peripheral Anaerobic Blood Culture - Preliminary NO GROWTH IN 2 DAYS Resulted 10/30/17 13:50 Blood Peripheral Aerobic Blood Culture - Preliminary NO GROWTH IN 2 DAYS Resulted 10/30/17 13:50 Blood Peripheral Anaerobic Blood Culture - Preliminary NO GROWTH IN 2 DAYS Resulted Imaging Last Impressions Abdomen X-Ray 10/31/17 0000 Signed Impressions: Service Date/Time: Tuesday, October 31, 2017 06:56 - CONCLUSION: 1. Left femoral vein catheter with the tip overlying the left pelvis in the expected region of the external iliac vein. 2. NG tube in the upper stomach. 3. Bibasilar areas of consolidation or atelectasis. Andrae Burgess MD Chest X-Ray 10/30/17 1345 Signed Impressions: Service Date/Time: Monday, October 30, 2017 13:49 - CONCLUSION: Cardiomegaly. Andrae Burgess MD Renal Ultrasound 10/30/17 0000 Signed Impressions: Service Date/Time: Monday, October 30, 2017 23:32 - CONCLUSION: 1. Both kidneys are sonographically normal. 2. Bladder is decompressed. Talon May MD Procedures 10/31: Dialysis catheter placement Left femoral vein. Assessment and Plan Disease Oriented Problem List: (1) Diabetes (2) Dyslipidemia (3) Hyperkalemia (4) Respiratory failure (5) Altered mental status (6) Acute on chronic renal failure Symptom Scale: (1) Dyspnea and respiratory abnormalities 0-10 Scale: 9 (On BiPAP, borderline oxygen saturation.) (2) Altered mental status 0-10 Scale: 7 (Intermittently agitated and following commands.) Pertinent Non-Medical Issues Psychosocial: Spiritual: Legal: Ethical issues impacting care: Important Contacts Daughter: Mercy Monroe Daughter: Helen Salcido . Prognosis His prognosis is guarded. He has severe COPD and is not tolerating being off BiPAP due to hypercarbia and hypoxia. He has been intubated twice in the past and was actually withdrawn from the ventilator and survived. He is declining any further intubation and would prefer medication for his symptoms, with full knowledge that it will likely allow him to , but do so and comfort. Per his daughter this is at least his seventh COPD exacerbation in the last few years and he is having more recurrent decline and hospitalizations. He is likely to continue to suffer complications and decline due to his severe lung compromise, now coupled with acute kidney failure requiring hemodialysis for hyperkalemia. His condition remains critical and guarded. . Code Status: No Code Plan PLAN: Legal decision maker: Patient is not capacitated to make his own decisions at this time. He has named his daughter Alix as his healthcare decision maker, supported by his daughter Gemma, who is the alternate healthcare surrogate and his daughter Mercy. All 3 daughters are working together. Goals: Aggressive short of resuscitation. CODE STATUS: DNR SYMPTOMS: * Dyspnea: Patient is chronically dyspneic and continues to smoke 1 pack per day , which he has for most of his life. He now has hypercarbia as well as hypoxia and is being maintained on BiPAP. He is being treated preemptively for pneumonia with azithromycin and Rocephin, Solu-Medrol and duo nebs. He does have a history of congestive heart failure and it is unknown whether this is systolic or diastolic, or what part this might play in his dyspnea. Would recommend obtaining a 2D echocardiogram to further delineate cardiac contribution to his dyspnea as well as assessing his degree of pulmonary hypertension. * Altered mental status: Likely hypercarbic, hypoxic in nature, however he has a long history of opioid use secondary to severe, chronic pain and may have a component of opioid withdrawal involved, particularly considering his recent dialysis, Given his fragile respiratory status, patient is now on precedex to treat agitation while on bipap. . Total time spent with patient to include chart and medical record review, discussion with medical team, family contact and discussion, patient assessment and examination from 10:30 a.m. to 1:08 PM totaling 158 minutes. Palliative care will continue to follow the patient during hospital course as condition evolves, to assist patient/decision-maker with understanding of their medical conditions, weighing benefits/burdens of treatment options, for clarification of goals of treatment. Additionally will assist with any symptoms of palliative concern. . Attestation To help prompt me to consider important information that might be impacting today's encounter and assessment, information from prior notes written by myself or my colleagues may have been "brought forward" into today's note. My signature on this note, however, is an attestation that I personally performed the exam, history, and/or decision-making noted today, and, unless otherwise indicated, the interactions with patient, family, and staff as well as the review of records all occurred today. I also attest that the listed assessment and stated plan reflect my best clinical judgment today based on the combination of historical information, prior notes, and today's exam/ interactions. When time spent is documented, it refers only to time spent today by the signer, or if indicated, combined time spent today by collaborating physician/nurse practitioner. . Cece Betancur November 01, 2017 19:29
[2017-11-01] MEDS: cefTRIAXone INJ 1,000 MG in SODIUM CHLORIDE 0.9% INJ 100 ML IV SCH (20:06)
[2017-11-02] VITALS (19 sets, daily range): BP systolic 131–198; BP diastolic 61–92; PULSE 55–118; RESP 22–53; TEMP 98–101.2; O2SAT 95–100
[2017-11-02] MEDS: RESP: ALBUTEROL 2.5 MG/IPRATROPIUM 0.5 MG NEB (SCH) INH ×6 (03:27→21:10)
[2017-11-02] MEDS: CHLORHEXIDINE GLUCONATE 2 % 1 PACK (2 CLOTHS) TOP SCH (03:34)
[2017-11-02 04:04] LABS: AUTOMATED NEUTROPHIL # 9.8 TH/MM3 (1.8-7.7); BASOPHIL % 0.1 % (0.0-2.0); LYMPH % 5.6 % (9.0-44.0); LYMPHOCYTE # 0.6 TH/MM3 (1.0-4.8); MEAN CELL VOLUME 91.7 FL (80.0-100.0); MEAN CORPUSCULAR HEMOGLOBIN 29.7 PG (27.0-34.0); MEAN CORPUSCULAR HGB CONC 32.4 % (32.0-36.0); MEAN PLATELET VOLUME 9.4 FL (7.0-11.0); MONO % 4.5 % (0.0-8.0); MONOCYTE # 0.5 TH/MM3 (0-0.9); NEUT % 89.8 % (16.0-70.0); PLATELET COUNT 180 TH/MM3 (150-450); RED BLOOD COUNT 4.37 MIL/MM3 (4.50-5.90); RED CELL DISTRIBUTION WIDTH 14.6 % (11.6-17.2); WHITE BLOOD COUNT 10.9 TH/MM3 (4.0-11.0)
[2017-11-02 04:33] LABS: ALBUMIN 2.8 GM/DL (3.4-5.0); ALKALINE PHOSPHATASE 58 U/L (45-117); ALT (GPT) 16 U/L (12-78); AST (GOT) 9 U/L (15-37); BICARBONATE 34.8 MEQ/L (21.0-32.0); BLOOD UREA NITROGEN 78 MG/DL (7-18); CHLORIDE 116 MEQ/L (98-107); CREATININE 1.58 MG/DL (0.60-1.30); GLOMERULAR FILTRATION RATE 44 ML/MIN (>89); GLUCOSE,RANDOM 190 MG/DL (74-106); MAGNESIUM 2.6 MG/DL (1.5-2.5); TOTAL BILIRUBIN ADULT 0.3 MG/DL (0.2-1.0); TOTAL PROTEIN 6.5 GM/DL (6.4-8.2)
[2017-11-02 04:37] LABS: SODIUM (NA) 156 MEQ/L (136-145)
[2017-11-02] MEDS: HEPARIN SODIUM - SQ 10,000 UNITS/ML VIAL SQ SCH ×2 (05:50→17:13)
[2017-11-02] MEDS: methylPREDNISolone SOD SUCC 40 MG/1 ML VIAL IV PUSH SCH ×4 (05:50→22:08)
[2017-11-02] MEDS: FAMOTIDINE 20 MG/2 ML VIAL IV PUSH SCH ×2 (08:21→20:19)
[2017-11-02] MEDS: SODIUM CHLOR 0.45% 1000 ML INJ 1,000 ML IV SCH (08:26)
[2017-11-02] MEDS ORDERED: DEXTROSE 5% IN WATE 1000ML INJ 1,000 ML IV SCH (08:45)
--- NOTE | 2017-11-02 10:17 | HHI.NPPN ---
Subjective Renal Failure: Acute Interval History Remains agitated, on Precedex. Sodium is higher. Renal function improved. (Naomie Lara) Review of Systems General General Remarks unable to obtain (Naomie Lara) Objective Data Data Vital Signs Date Time Temp Pulse Resp B/P (MAP) Pulse Ox O2 Delivery O2 Flow Rate FiO2 11/02/17 07:57 99 BiPAP 50 11/02/17 07:53 99 50 11/02/17 06:00 72 11/02/17 04:18 96 50 11/02/17 04:00 98.0 59 30 131/61 (84) 98 11/02/17 04:00 59 11/02/17 02:10 96 50 11/02/17 02:00 67 11/02/17 00:00 63 11/02/17 00:00 98.5 63 27 173/81 (111) 100 11/01/17 23:29 100 50 11/01/17 22:00 48 11/01/17 20:00 97.9 52 25 114/57 (76) 98 11/01/17 20:00 52 11/01/17 19:48 98 BiPAP 50 11/01/17 19:40 98 50 11/01/17 18:00 53 11/01/17 17:36 98 50 11/01/17 16:00 61 11/01/17 15:00 98.0 52 20 98 11/01/17 14:00 52 11/01/17 12:00 57 11/01/17 11:14 98 50 11/01/17 11:00 99.0 65 20 137/66 (89) 98 (Naomie Lara) -: 11/02/17 0341 11/02/17 0341 Imaging Last 72 hours Impressions Abdomen X-Ray 10/31/17 0000 Signed Impressions: Service Date/Time: Tuesday, October 31, 2017 06:56 - CONCLUSION: 1. Left femoral vein catheter with the tip overlying the left pelvis in the expected region of the external iliac vein. 2. NG tube in the upper stomach. 3. Bibasilar areas of consolidation or atelectasis. Andrae Burgess MD Abdomen X-Ray 10/31/17 0000 Signed Impressions: Service Date/Time: Tuesday, October 31, 2017 01:43 - CONCLUSION: 1. Nasogastric type tube the tip projecting in the left upper abdominal quadrant in the expected location of the gastric lumen. 2. Nonobstructive bowel gas pattern Talon May MD Chest X-Ray 10/30/17 1345 Signed Impressions: Service Date/Time: Monday, October 30, 2017 13:49 - CONCLUSION: Cardiomegaly. Andrae Burgess MD Drip Comment Precedex (Naomie Lara BJared [employer] BU[employer]DER) Physical Exam General Appearance: Comfortable, Malnourished Appearance Remarks disheveled, on BiPap, not responding. Agitated, not restrained. (JaneNaomie B. [employer] BU[employer]DER) Throat Throat Exam: Oral Mucosa Conrad & Moist (JaneNaomie B. MICA BUILDER) Pulmonary Resp Exam: No Distress, Decreased Bases, Diminished Breath Sounds (Anish Laraon B. [employer] BU[employer]) Cardiology CV Exam: Normal Sinus Rhythm, Good Perfusion (Naomie Lara B. [employer] BU[employer]) Gastrointestinal/Abdomen GI Exam: Soft, Non-Tender, Bowel Sounds Present (Naomie Lara B. [employer] BU[employer]) Musculoskeletal MS Exam: Joints Intact, Normal Tone, Unable to Ambulate (JaneNaomie B. M[employer] BU[employer]DER) Integumentary Skin Exam: Warm, Dry, Intact (Naomie Lara B. [employer] BU[employer]) Extremeties Extremities Exam: No Edema, Pedal Pulses Palpable (JaneNaomie B. [employer] BU[employer]DER) Neurologic Neuro Exam: Obtunded, Unresponsive (Naomie Lara B. [employer] BU[employer]DER) Assessment/Plan Assessment Summary: AARON/Acute Renal Failure, Hypertension Problem List: (1) Acute on chronic renal failure ICD Codes: N17.9 - Acute kidney failure, unspecified; N18.9 - Chronic kidney disease, unspecified Status: Acute Plan: He has underlying CKD 3, most likely due to nephrosclerosis Required emergent dialysis yesterday due to hyperkalemia on admission Renal function improving. He is making excellent urine, has a blue catheter Change IVF to D5W. Remove vascath today. Avoid nephrotoxic agents Repeat labs in AM (2) Respiratory failure ICD Codes: J96.90 - Respiratory failure, unspecified, unspecified whether with hypoxia or hypercapnia Status: Acute Plan: On BiPap, has severe respiratory acidosis and would benefit from intubation but is DNI status Palliative are to assist with goals, CCM and respiratory therapy to assist with settings (3) Hyperkalemia ICD Codes: E87.5 - Hyperkalemia; N18.9 - Chronic kidney disease, unspecified Status: Acute Plan: Due to reduction in GFR He was also on lisinopril Improved, repeat labs. (4) Hypernatremia ICD Codes: E87.0 - Hyperosmolality and hypernatremia Plan: Start hypotonic fluids. Increase free water via NG tube 300ml Q6h. (Naomie LaraP) Problem List: (1) Acute on chronic renal failure ICD Codes: N17.9 - Acute kidney failure, unspecified; N18.9 - Chronic kidney disease, unspecified Status: Acute Plan: He has underlying CKD 3, most likely due to nephrosclerosis Required emergent dialysis yesterday due to hyperkalemia on admission Renal function improving. He is making excellent urine, has a blue catheter Change IVF to D5W. Remove vascath today. Avoid nephrotoxic agents Repeat labs in AM (2) Respiratory failure ICD Codes: J96.90 - Respiratory failure, unspecified, unspecified whether with hypoxia or hypercapnia Status: Acute Plan: On BiPap, has severe respiratory acidosis and would benefit from intubation but is DNI status Palliative are to assist with goals, CCM and respiratory therapy to assist with settings (3) Hyperkalemia ICD Codes: E87.5 - Hyperkalemia; N18.9 - Chronic kidney disease, unspecified Status: Acute Plan: Due to reduction in GFR He was also on lisinopril Improved, repeat labs. (4) Hypernatremia ICD Codes: E87.0 - Hyperosmolality and hypernatremia Plan: Start hypotonic fluids. Increase free water via NG tube 300ml Q6h. Plan patient was seen and examined. Agree with above. No need for dialysis. Vascath to be removed. Initiate hypotonic fluids. (Mark Byrd MD) Problem Qualifiers (1) Acute on chronic renal failure: Qualified Codes: N17.9 - Acute kidney failure, unspecified; N18.4 - Chronic kidney disease, stage 4 (severe) (2) Respiratory failure: Qualified Codes: J96.02 - Acute respiratory failure with hypercapnia Naomie Lraa [employer] BU[employer] November 02, 2017 10:17 Mark Byrd MD November 02, 2017 21:24
[2017-11-02] MEDS ORDERED: FREE WATER G-TUBE SCH (12:00)
[2017-11-02] MEDS ORDERED: hydrALAZINE HCL 20 MG/ML VIAL IV PUSH ONE (12:45)
[2017-11-02] MEDS ORDERED: LORazepam 2 MG/ML VIAL IV PUSH ONE ×3 (12:45→15:00)
--- NOTE | 2017-11-02 12:56 | HHI.CCPN ---
Subjective Remarks/Hospital Course 10/30: 62-year-old gentleman with history of COPD on home O2, congestive heart failure, hypertension, CAD, spinal stenosis now now brought to the emergency room with altered mental status and respiratory distress. Patient presented on October 27 to [facility] emergency with worsening shortness of breath. He was found to have acute COPD exacerbation but patient declined admission. He was treated with prednisone and azithromycin and bronchodilators and he was discharged home. Over the last few days patient had worsening shortness of breath associated with cough and since yesterday patient became increasingly lethargic. Over the night patient became very poorly responsive therefore today daughter called EVAC patient was brought to the emergency room. On ED arrival patient was unresponsive. Blood gas done showed severe respiratory acidosis. Moreover, patient was found to have acute hyperkalemia and acute kidney injury, potassium up to 7.5. Patient was treated with Solu- Medrol, DuoNeb, insulin and dextrose, Kayexalate, calcium gluconate and bicarbonate. Stat consult for nephrology was placed in ED physician is waiting for callback. [facility] was consulted for ICU admission. Patient was not intubated because he has a standing DNR. Patient was immediately seen in the emergency room, daughter present at bedside. Patient is on BiPAP, arousable, following some commands. Per daughter, patient has a standing DNR/DNI and her sister who has POA was contacted by emergency room physician to complete the DNR form. 10/31: Over the night the patient was transitioned to facemask with subsequent worsening and hypercapnia, then placed back on BiPAP. Currently patient on BiPAP 15/5 at 55% O2. Patient is arousable but does not follow commands. Due to elevated potassium despite medical measures and HD catheter was placed and patient will undergo emergent hemodialysis. 11/01: Late entry note. Patient seen at 11:15 AM. Overnight the patient was noted to have progressive alteration in mental status, pulling out IVs. Patient was transitioned onto Precedex with family at bedside. Patient continues on BiPAP. 11/02: Patient on Precedex drip heart rate noted to be 30s-40s with systolic blood pressure in the 150s. Hydralazine given for hypertension 1 dose 10 mg. The patient continues to have altered mental status pulling on lines, incomprehensible sounds. Precedex discontinued. Ativan 1 mg IV 1 dose provided. Patient continues on BiPAP discussed with palliative care steam pressure chamber operator Mrs. Betancur, post family conference with the 2 daughters they are to arrive tomorrow with tentative plan for transitioning to comfort care measures, with placement of nonrebreather mask and possibly hospice, to be determined upon their arrival. Objective Vital Signs Date Time Temp Pulse Resp B/P (MAP) Pulse Ox O2 Delivery O2 Flow Rate FiO2 11/02/17 12:00 55 11/02/17 07:57 99 BiPAP 50 11/02/17 04:00 98.0 30 131/61 (84) 10/31/17 04:11 11.00 Intake and Output 11/02/17 11/02/17 11/03/17 08:00 16:00 00:00 Intake Total 0 ml Output Total 1250 ml Balance -1250 ml Result Diagram: 11/02/17 0341 11/02/17 0341 Other Results Laboratory Tests Test 11/01/17 17:20 11/02/17 05:04 Blood Gas Puncture Site LT RADIAL RT RADIAL Blood Gas Patient Temperature 98.6 98.6 Blood Gas HCO3 34 mmol/L (22-26) 35 mmol/L (22-26) Blood Gas Base Excess 7.7 mmol/L (-2-2) 8.6 mmol/L (-2-2) Blood Gas Oxygen Saturation 97 % (90-100) 94 % (90-100) Arterial Blood pH 7.29 (7.380-7.420) 7.34 (7.380-7.420) Arterial Blood Partial Pressure CO2 73 mmHg (38-42) 67 mmHg (38-42) Arterial Blood Partial Pressure O2 204 mmHg (61-120) 95 mmHg (61-120) Arterial Blood Oxygen Content 18.2 Vol % (12.0-20.0) 16.8 Vol % (12.0-20.0) Arterial Blood Carboxyhemoglobin 0.6 % (0-4) 0.7 % (0-4) Arterial Blood Methemoglobin 1.7 % (0-2) 1.7 % (0-2) Blood Gas Hemoglobin 13.1 G/DL (12.0-16.0) 12.6 G/DL (12.0-16.0) Oxygen Delivery Device BIPAP BIPAP 20/+5/ Blood Gas Ventilator Setting IPAP 20/EPAP5 Blood Gas Inspired Oxygen 50 % 50 % Imaging Last Impressions Abdomen X-Ray 10/31/17 0000 Signed Impressions: Service Date/Time: Tuesday, October 31, 2017 06:56 - CONCLUSION: 1. Left femoral vein catheter with the tip overlying the left pelvis in the expected region of the external iliac vein. 2. NG tube in the upper stomach. 3. Bibasilar areas of consolidation or atelectasis. Andrae Burgess MD Chest X-Ray 10/30/17 1345 Signed Impressions: Service Date/Time: Monday, October 30, 2017 13:49 - CONCLUSION: Cardiomegaly. Andrae Burgess MD Renal Ultrasound 10/30/17 0000 Signed Impressions: Service Date/Time: Monday, October 30, 2017 23:32 - CONCLUSION: 1. Both kidneys are sonographically normal. 2. Bladder is decompressed. Talon May MD Last Impressions Chest X-Ray 10/30/17 1345 Signed Impressions: Service Date/Time: Monday, October 30, 2017 13:49 - CONCLUSION: Cardiomegaly. Andrae Burgess MD Objective Remarks General - This is a middle-aged gentleman, lethargic, arousable, ill-appearing, currently on Precedex HEENT - pupils are equal, reactive, sclerae are anicteric, neck is supple, no rigidity, no JVD, no carotid bruit CV - irregular heart sound, systolic ejection murmur at the apex Chest - coarse breath sounds bilateral, scattered wheezes, decreased air entry Abdomen - soft, not distended, non-tender, BS present, no hepatomegaly, no splenomegaly Skin - no rashes, no cyanosis, multiple tattoos Extremities - warm, no edema, + peripheral pulses, no clubbing Neuro -previously agitated currently on low-dose Precedex infusion does not follow commands A/P Assessment and Plan 1. Acute hypercapnic respiratory failure 2. Acute COPD exacerbation 3. Acute hyperkalemia 4. Acute kidney injury 5. History of CAD with stent placement 6. History of hypertension 7. History of spinal stenosis on chronic opiates 8. Sinus bradycardia 9. Hypernatremia PLAN 1. Continue BiPAP, settings readjusted, BiPAP increased to 15, FiO2 decreased to 0.4 2. Continue Solu-Medrol 60 mg every 6 hours and scheduled bronchodilators every 4 hours 3. Continue Empiric ceftriaxone and azithromycin 4. Nephrology following-and for removal of Vas-Cath today 11/02 5. Monitor BMP, replete electrolytes per ICU protocol 6. X-ray and ABGs when clinically indicated 7. 11/02 Discontinue Precedex secondary to sinus bradycardia initiate Ativan 1 mg 1 dose 8. Hold pain medication in the setting of poor mental status 9. Continue D5W 50 cc/hr 10. Lactate level within normal limits 11. GI and DVT prophylaxis 12. DNR per patient's wishes expressed by daughter, discussed with palliative both daughters to arrive late tonight or early in a.m. tentative plan for initiation of comfort care measures by placement of nonrebreather mask and making patient comfortable with less invasive mask 13. Maintain NPO 14. Maintain Toney catheter for accurate urine output measurement Patient is critically ill and at high risk for further deterioration and . Palliative care is following, Mrs. Betancur she had an extensive discussion with the 2 daughters and tentative plan for transition to comfort care measures and possibly hospice tonight or in a.m. Level 3 follow up Physician Dior Harrison MD November 02, 2017 12:56
--- NOTE | 2017-11-02 13:41 | RADRPT ---
EXAM DATE/TIME: 11/02/2017 13:11 [facility] COMPARISON: CHEST SINGLE AP, October 30, 2017, 13:49. INDICATIONS : Respiratory failure. MEDICAL HISTORY : Congestive heart failure. Hypercholesterolemia. Hypertension. Coronary artery disease. Hyperlipidemia . COPD. Diabetes. SURGICAL HISTORY : Coronary artery stent. Cardiac cath. Bilateral knee replacements. ENCOUNTER: Subsequent ACUITY: 4 - 6 days PAIN SCORE: Non-responsive. LOCATION: Bilateral chest FINDINGS: 2 AP views of the chest demonstrate stable mildly enlarged cardiac silhouette. Nasogastric tube cours es beyond the GE junction. EKG lines overlie the patient. No effusion, consolidation, or pneumothorax is appreciated. The bones and soft tissues demonstrate no acute finding. CONCLUSION: Stable chest x-ray. No acute abnormality is identified. There is stable enlargement of the cardiac si lhouette. Andrae Maldonado MD on November 02, 2017 at 13:38 Board Certified Radiologist. This report was verified electronically.
[2017-11-02] MEDS ORDERED: MORPHINE SULFATE 8 MG/ML INJ IV PUSH ONE (14:45)
[2017-11-02] MEDS ORDERED: MORPHINE SULFATE 4 MG/ML INJ IV PUSH ONE (15:00)
[2017-11-02] MEDS ORDERED: BISACODYL 10 MG SUPP RECTAL PRN (15:15)
[2017-11-02] MEDS ORDERED: MORPHINE SULFATE 8 MG/ML INJ IV PUSH PRN (15:15)
[2017-11-02] MEDS ORDERED: FUROSEMIDE 20 MG/2 ML VIAL IV PUSH PRN (15:15)
[2017-11-02] MEDS ORDERED: ACETAMINOPHEN 650 MG SUPP RECTAL PRN (15:15)
[2017-11-02] MEDS ORDERED: LORazepam 2 MG/ML VIAL IV PUSH PRN ×2 (15:15)
--- NOTE | 2017-11-02 15:23 | HHI.HCPN ---
Reason for visit a. To assist with evaluation and management of symptoms including: Dyspnea, altered mental status, Pain, agitation b. To assist medical decision maker(s) with: better understanding of current medical conditions; weighing benefits/burdens of medical treatment options; making medical treatment decisions. Subjective/Interval History Patient seen for follow up of dyspnea, altered mental status, agitation and pain. Remains on bipap, requiring Precedex for agitation control. Patient is having bradycardia on Precedex with rates in the 30s. Arterial blood gas shows pH 7.34 , PCO2 67, PO2 95, HCO3 35, base excess +8.6 on 50% FiO2 via BiPAP. Precedex is being weaned for bradycardia control and patient is becoming agitated. He is seen to be agitated, thrashing in bed when Precedex is weaned. He is a difficult balance of sedation versus comfort due to his fragile respiratory status. He does not respond to command or follow direction. He is not opening his eyes to voice. Mental status remains altered. He has a history of chronic pain, for which he takes oral morphine and hydrocodone/tylenol. Given his fragile respiratory status, pain medication is being withheld to prevent depressing respirations. He is exhibiting no pain at this time. . Family/friend interactions Spoke with his daughter Alix at 11 AM for update while at patient's bedside. We did discuss his bradycardia as response to the sedation as well as his intermittent agitation, altered mental status, not responding to redirection. She stated that this had also been his previous response to COPD exacerbations and per her previous discussions with him he did not wish to have extraordinary measures performed for resuscitation. He was made a DO NOT RESUSCITATE at his own request and had refused intubation in the past. 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 She states that his pain was so overwhelming that it occupied all of his conversations. His daughter Gemma is previously spoken to me and noted the same thing that no matter how conversations started with him they all gravitated towards a discussion of his intense and life altering pain. Alix contacted me again at 2 PM and stated that she had discussed her father 's condition with her sister Gemma, who is the alternate healthcare surrogate , and Gemma had discussed this with their younger sister, Mercy and they agree that this is precisely the situation that their father had discussed with them multiple times in the past and he would not wish to continue on the BiPAP mask with so little progress in such a poor prognosis. It is Alix stated wish that we convert him to a comfort status and along those lines agreed to sign a withdrawal of life support consent form. This was emailed to her and she signed and returned a copy. She is requesting that the BiPAP mask be discontinued and he be placed instead on a 100% nonrebreather mask, which in the past he is tolerated well. She is aware, as she states is her sister Gemma, that he may pass prior to their arrival, scheduled at approximately 9 PM today, however she states she wishes her father to suffer "not one more minute of discomfort" and she accepts the possibility that he may pass prior to her arrival. This was discussed with Dr. Nix, his attending physician, Dr. Gracia, the consulting physician and his RN and medications have been entered for patient's pain and anxiety after the Precedex is discontinued and the BiPAP mask is removed. Patient's youngest daughter Mercy, had previously visited and will return. Per my discussion with the RN she is aware of family plans to stop aggressive measures. . Advance Directives Living Will: Never completed Health Care Surrogate: Copy in medical record Durable Power of Mortgage Field Inspector: Never completed Advance Directive Specifics Date completed: Form completed, but undated. . Health Care Surrogate(s): He names his daughter Alix Scruggs as his primary healthcare decision maker with his daughter Gemma Monroe as his alternate. . Documented care wishes: No living will available. . Objective Vital Signs Date Time Temp Pulse Resp B/P (MAP) Pulse Ox O2 Delivery O2 Flow Rate FiO2 11/02/17 12:00 55 11/02/17 10:00 58 11/02/17 08:00 63 11/02/17 07:57 99 BiPAP 50 11/02/17 07:53 99 50 11/02/17 06:00 72 11/02/17 04:18 96 50 11/02/17 04:00 98.0 59 30 131/61 (84) 98 11/02/17 04:00 59 11/02/17 02:10 96 50 11/02/17 02:00 67 11/02/17 00:00 63 11/02/17 00:00 98.5 63 27 173/81 (111) 100 11/01/17 23:29 100 50 11/01/17 22:00 48 11/01/17 20:00 97.9 52 25 114/57 (76) 98 11/01/17 20:00 52 11/01/17 19:48 98 BiPAP 50 11/01/17 19:40 98 50 11/01/17 18:00 53 11/01/17 17:36 98 50 11/01/17 16:00 61 11/01/17 15:00 98.0 52 20 98 Intake & Output 11/02/17 11/02/17 07:00 19:00 Intake Total 590 ml Output Total 1250 ml Balance -660 ml Intake Oral 0 ml IV Total 590 ml Output Urine Total 1250 ml Gastric Drainage Total 0 ml # Bowel Movements 0 Physical Exam CONSTITUTIONAL/GENERAL: This is an obese male, on BiPAP, agitated, thrashing in bed. TUBES/LINES/DRAINS: Left femoral Vas-Cath, left ACF PIV, right hand PIV. BiPAP , Toney catheter. SKIN: No jaundice, rashes, or lesions. Ecchymoses on upper extremities. No wounds seen anteriorly. Skin temperature appropriate. Not diaphoretic. HEAD: Atraumatic. Normocephalic. EYES: Pupils equal and round and reactive. Extraocular motions intact. No scleral icterus. No injection or drainage. Fundi not examined. ENT: Nose without bleeding or purulent drainage. NECK: Trachea midline. Supple, nontender. No palpable thyroid enlargement or nodularity. CARDIOVASCULAR: Bradycardic rhythm, regular rate, S1, S2, no rub murmur or gallop auscultated. RESPIRATORY/CHEST: Lungs are coarse with wheezing throughout all lung lee. Symmetric lung expansion, mildly tachypneic respiratory rate. GASTROINTESTINAL: Abdomen protuberant, slightly firm, positive bowel sounds. GENITOURINARY: Without palpable bladder distension. Toney catheter in place. MUSCULOSKELETAL: Extremities without clubbing, cyanosis, or edema. No joint tenderness or effusion noted. No calf tenderness. No mottling or clubbing. LYMPHATICS: No palpable cervical or supraclavicular adenopathy. NEUROLOGICAL: Not responding to command, not opening eyes, nonverbal, moving all extremities, not to command. PSYCHIATRIC: Sedated. . Diagnostic Tests Laboratory . Laboratory Tests Test 10/30/17 15:00 10/30/17 17:48 10/30/17 18:00 10/30/17 19:00 Blood Urea Nitrogen 89 MG/DL (7-18) 94 MG/DL (7-18) Creatinine 3.63 MG/DL (0.60-1.30) 3.72 MG/DL (0.60-1.30) Random Glucose 152 MG/DL (74-106) 166 MG/DL (74-106) Total Protein 7.7 GM/DL (6.4-8.2) Albumin 3.7 GM/DL (3.4-5.0) Calcium Level 8.2 MG/DL (8.5-10.1) 9.0 MG/DL (8.5-10.1) Magnesium Level 2.7 MG/DL (1.5-2.5) Alkaline Phosphatase 71 U/L (45-117) Aspartate Amino Transf (AST/SGOT) 19 U/L (15-37) Alanine Aminotransferase (ALT/SGPT) 17 U/L (12-78) Total Bilirubin 0.5 MG/DL (0.2-1.0) Sodium Level 139 MEQ/L (136-145) 141 MEQ/L (136-145) Potassium Level 7.5 MEQ/L (3.5-5.1) 6.3 MEQ/L (3.5-5.1) Chloride Level 104 MEQ/L (98-107) 104 MEQ/L (98-107) Carbon Dioxide Level 29.6 MEQ/L (21.0-32.0) 32.0 MEQ/L (21.0-32.0) Anion Gap 5 MEQ/L (5-15) 5 MEQ/L (5-15) Estimat Glomerular Filtration Rate 17 ML/MIN (>89) 17 ML/MIN (>89) Troponin I LESS THAN 0.02 NG/ML LESS THAN 0.02 NG/ML Lactic Acid Level 1.0 mmol/L (0.4-2.0) Blood Gas Puncture Site RT RADIAL Blood Gas Patient Temperature 98.6 Blood Gas HCO3 30 mmol/L (22-26) Blood Gas Base Excess 1.9 mmol/L (-2-2) Blood Gas Oxygen Saturation 89 % (90-100) Arterial Blood pH 7.16 (7.380-7.420) Arterial Blood Partial Pressure CO2 88 mmHg (38-42) Arterial Blood Partial Pressure O2 69 mmHg (61-120) Arterial Blood Oxygen Content 17.3 Vol % (12.0-20.0) Arterial Blood Carboxyhemoglobin 1.1 % (0-4) Arterial Blood Methemoglobin 1.4 % (0-2) Blood Gas Hemoglobin 13.8 G/DL (12.0-16.0) Oxygen Delivery Device BiPAP Blood Gas Ventilator Setting [id number] Blood Gas Inspired Oxygen 40 % Nasal Screen MRSA (PCR) MRSA NOT DETECTED (NOT Test 10/30/17 20:20 10/30/17 23:47 10/31/17 04:00 10/31/17 05:22 Urine Color YELLOW (YELLW/STRAW) Urine Turbidity CLEAR (CLEAR) Urine pH 5.0 (5.0-8.5) Urine Specific [place] 1.014 (1.002-1.035) Urine Protein TRACE mg/dL (NEG-TRACE) Urine Glucose (UA) NEG mg/dL (NEG) Urine Ketones NEG mg/dL (NEG) Urine Occult Blood NEG (NEG) Urine Nitrite NEG (NEG) Urine Bilirubin NEG (NEG) Urine Urobilinogen LESS THAN 2.0 MG/DL (LESS Urine Leukocyte Esterase NEG (NEG) Urine WBC 1 /hpf (0-5) Urine Squamous Epithelial Cells 1 /hpf (0-5) Urine Hyaline Casts 20 /lpf (RARE) Urine Mucus FEW /lpf (OCC) Microscopic Urinalysis Comment CULT NOT INDICATED Urine Random Creatinine 185.1 MG/DL Urine Random Sodium 34 MEQ/L Blood Urea Nitrogen 99 MG/DL (7-18) 97 MG/DL (7-18) Creatinine 3.42 MG/DL (0.60-1.30) 3.45 MG/DL (0.60-1.30) Random Glucose 192 MG/DL (74-106) 195 MG/DL (74-106) Calcium Level 8.4 MG/DL (8.5-10.1) 8.5 MG/DL (8.5-10.1) Sodium Level 140 MEQ/L (136-145) 140 MEQ/L (136-145) Potassium Level 6.9 MEQ/L (3.5-5.1) 7.0 MEQ/L (3.5-5.1) Chloride Level 105 MEQ/L (98-107) 104 MEQ/L (98-107) Carbon Dioxide Level 26.9 MEQ/L (21.0-32.0) 29.0 MEQ/L (21.0-32.0) Anion Gap 8 MEQ/L (5-15) 7 MEQ/L (5-15) Estimat Glomerular Filtration Rate 18 ML/MIN (>89) 18 ML/MIN (>89) Troponin I LESS THAN 0.02 NG/ML White Blood Count 15.5 TH/MM3 (4.0-11.0) Red Blood Count 4.50 MIL/MM3 (4.50-5.90) Hemoglobin 13.3 GM/DL (13.0-17.0) Hematocrit 42.6 % (39.0-51.0) Mean Corpuscular Volume 94.6 FL (80.0-100.0) Mean Corpuscular Hemoglobin 29.5 PG (27.0-34.0) Mean Corpuscular Hemoglobin Concent 31.2 % (32.0-36.0) Red Cell Distribution Width 15.3 % (11.6-17.2) Platelet Count 221 TH/MM3 (150-450) Mean Platelet Volume 9.2 FL (7.0-11.0) Neutrophils (%) (Auto) 89.3 % (16.0-70.0) Lymphocytes (%) (Auto) 5.1 % (9.0-44.0) Monocytes (%) (Auto) 5.5 % (0.0-8.0) Eosinophils (%) (Auto) 0.0 % (0.0-4.0) Basophils (%) (Auto) 0.1 % (0.0-2.0) Neutrophils # (Auto) 13.8 TH/MM3 (1.8-7.7) Lymphocytes # (Auto) 0.8 TH/MM3 (1.0-4.8) Monocytes # (Auto) 0.8 TH/MM3 (0-0.9) Eosinophils # (Auto) 0.0 TH/MM3 (0-0.4) Basophils # (Auto) 0.0 TH/MM3 (0-0.2) CBC Comment DIFF FINAL Differential Comment Total Protein 7.2 GM/DL (6.4-8.2) Albumin 3.4 GM/DL (3.4-5.0) Phosphorus Level 8.7 MG/DL (2.5-4.9) Magnesium Level 3.0 MG/DL (1.5-2.5) Alkaline Phosphatase 79 U/L (45-117) Aspartate Amino Transf (AST/SGOT) 23 U/L (15-37) Alanine Aminotransferase (ALT/SGPT) 24 U/L (12-78) Total Bilirubin 0.3 MG/DL (0.2-1.0) Lactic Acid Level 0.7 mmol/L (0.4-2.0) Blood Gas Puncture Site RT RADIAL Blood Gas Patient Temperature 98.6 Blood Gas HCO3 31 mmol/L (22-26) Blood Gas Base Excess 1.3 mmol/L (-2-2) Blood Gas Oxygen Saturation 95 % (90-100) Arterial Blood pH 7.05 (7.380-7.420) Arterial Blood Partial Pressure CO2 120 mmHg (38-42) Arterial Blood Partial Pressure O2 112 mmHg (61-120) Arterial Blood Oxygen Content 17.7 Vol % (12.0-20.0) Arterial Blood Carboxyhemoglobin 0.6 % (0-4) Arterial Blood Methemoglobin 2.0 % (0-2) Blood Gas Hemoglobin 13.2 G/DL (12.0-16.0) Oxygen Delivery Device PRB MASK Blood Gas Liter Flow 11 L/M Test 10/31/17 07:20 10/31/17 08:30 10/31/17 09:20 10/31/17 13:15 White Blood Count 19.0 TH/MM3 (4.0-11.0) Red Blood Count 4.46 MIL/MM3 (4.50-5.90) Hemoglobin 13.2 GM/DL (13.0-17.0) Hematocrit 42.4 % (39.0-51.0) Mean Corpuscular Volume 95.1 FL (80.0-100.0) Mean Corpuscular Hemoglobin 29.6 PG (27.0-34.0) Mean Corpuscular Hemoglobin Concent 31.1 % (32.0-36.0) Red Cell Distribution Width 15.2 % (11.6-17.2) Platelet Count 232 TH/MM3 (150-450) Mean Platelet Volume 9.4 FL (7.0-11.0) Blood Urea Nitrogen 101 MG/DL (7-18) Creatinine 3.56 MG/DL (0.60-1.30) Random Glucose 193 MG/DL (74-106) Calcium Level 8.5 MG/DL (8.5-10.1) Phosphorus Level 8.4 MG/DL (2.5-4.9) Magnesium Level 2.9 MG/DL (1.5-2.5) Sodium Level 142 MEQ/L (136-145) Potassium Level 6.7 MEQ/L (3.5-5.1) Chloride Level 104 MEQ/L (98-107) Carbon Dioxide Level 31.7 MEQ/L (21.0-32.0) Anion Gap 6 MEQ/L (5-15) Estimat Glomerular Filtration Rate 17 ML/MIN (>89) Hepatitis A IgM Antibody NONREACTIVE (NONREACTIVE) Hepatitis B Surface Antigen NONREACTIVE (NONREACTIVE) Hepatitis B Core IgM Antibody NONREACTIVE (NONREACTIVE) Hepatitis C IgG Antibody NONREACTIVE (NONREACTIVE) Blood Gas Puncture Site RT RADIAL LT RADIAL Blood Gas Patient Temperature 98.6 98.6 Blood Gas HCO3 32 mmol/L (22-26) 33 mmol/L (22-26) Blood Gas Base Excess 2.3 mmol/L (-2-2) 3.9 mmol/L (-2-2) Blood Gas Oxygen Saturation 90 % (90-100) 89 % (90-100) Arterial Blood pH 7.09 (7.380-7.420) 7.14 (7.380-7.420) Arterial Blood Partial Pressure CO2 111 mmHg (38-42) 100 mmHg (38-42) Arterial Blood Partial Pressure O2 67 mmHg (61-120) 69 mmHg (61-120) Arterial Blood Oxygen Content 17.5 Vol % (12.0-20.0) 17.2 Vol % (12.0-20.0) Arterial Blood Carboxyhemoglobin 0.7 % (0-4) 0.7 % (0-4) Arterial Blood Methemoglobin 2.1 % (0-2) 1.8 % (0-2) Blood Gas Hemoglobin 13.8 G/DL (12.0-16.0) 13.7 G/DL (12.0-16.0) Oxygen Delivery Device BiPAP BiPAP Blood Gas Ventilator Setting [id number] IPAP 20/EPAP 5 Blood Gas Inspired Oxygen 50 % 50 % Test 4/30/18 14:00 11/01/17 03:27 11/01/17 05:03 11/01/17 17:20 Potassium Level 5.2 MEQ/L (3.5-5.1) 4.4 MEQ/L (3.5-5.1) White Blood Count 18.1 TH/MM3 (4.0-11.0) Red Blood Count 4.30 MIL/MM3 (4.50-5.90) Hemoglobin 12.7 GM/DL (13.0-17.0) Hematocrit 40.1 % (39.0-51.0) Mean Corpuscular Volume 93.3 FL (80.0-100.0) Mean Corpuscular Hemoglobin 29.6 PG (27.0-34.0) Mean Corpuscular Hemoglobin Concent 31.7 % (32.0-36.0) Red Cell Distribution Width 14.9 % (11.6-17.2) Platelet Count 193 TH/MM3 (150-450) Mean Platelet Volume 9.2 FL (7.0-11.0) Neutrophils (%) (Auto) 91.7 % (16.0-70.0) Lymphocytes (%) (Auto) 2.1 % (9.0-44.0) Monocytes (%) (Auto) 6.1 % (0.0-8.0) Eosinophils (%) (Auto) 0.0 % (0.0-4.0) Basophils (%) (Auto) 0.1 % (0.0-2.0) Neutrophils # (Auto) 16.6 TH/MM3 (1.8-7.7) Lymphocytes # (Auto) 0.4 TH/MM3 (1.0-4.8) Monocytes # (Auto) 1.1 TH/MM3 (0-0.9) Eosinophils # (Auto) 0.0 TH/MM3 (0-0.4) Basophils # (Auto) 0.0 TH/MM3 (0-0.2) CBC Comment AUTO DIFF Differential Total Cells Counted 100 Neutrophils % (Manual) 79 % (16-70) Band Neutrophils % 14 % (0-6) Lymphocytes % 3 % (9-44) Monocytes % 4 % (0-8) Neutrophils # (Manual) 16.8 TH/MM3 (1.8-7.7) Differential Comment FINAL DIFF MANUAL Platelet Estimate NORMAL (NORMAL) Platelet Morphology Comment NORMAL (NORMAL) Blood Urea Nitrogen 69 MG/DL (7-18) Creatinine 1.89 MG/DL (0.60-1.30) Random Glucose 166 MG/DL (74-106) Total Protein 6.7 GM/DL (6.4-8.2) Albumin 2.9 GM/DL (3.4-5.0) Calcium Level 7.9 MG/DL (8.5-10.1) Phosphorus Level 3.7 MG/DL (2.5-4.9) Magnesium Level 2.4 MG/DL (1.5-2.5) Alkaline Phosphatase 65 U/L (45-117) Aspartate Amino Transf (AST/SGOT) 14 U/L (15-37) Alanine Aminotransferase (ALT/SGPT) 19 U/L (12-78) Total Bilirubin 0.2 MG/DL (0.2-1.0) Sodium Level 149 MEQ/L (136-145) Chloride Level 110 MEQ/L (98-107) Carbon Dioxide Level 35.0 MEQ/L (21.0-32.0) Anion Gap 4 MEQ/L (5-15) Estimat Glomerular Filtration Rate 36 ML/MIN (>89) Blood Gas Puncture Site RT RADIAL LT RADIAL Blood Gas Patient Temperature 98.6 98.6 Blood Gas HCO3 36 mmol/L (22-26) 34 mmol/L (22-26) Blood Gas Base Excess 8.1 mmol/L (-2-2) 7.7 mmol/L (-2-2) Blood Gas Oxygen Saturation 94 % (90-100) 97 % (90-100) Arterial Blood pH 7.22 (7.380-7.420) 7.29 (7.380-7.420) Arterial Blood Partial Pressure CO2 91 mmHg (38-42) 73 mmHg (38-42) Arterial Blood Partial Pressure O2 92 mmHg (61-120) 204 mmHg (61-120) Arterial Blood Oxygen Content 16.5 Vol % (12.0-20.0) 18.2 Vol % (12.0-20.0) Arterial Blood Carboxyhemoglobin 0.8 % (0-4) 0.6 % (0-4) Arterial Blood Methemoglobin 1.8 % (0-2) 1.7 % (0-2) Blood Gas Hemoglobin 12.5 G/DL (12.0-16.0) 13.1 G/DL (12.0-16.0) Oxygen Delivery Device BIPAP 20/+5/ BIPAP Blood Gas Inspired Oxygen 50 % 50 % Blood Gas Ventilator Setting IPAP 20/EPAP5 Test 11/02/17 03:41 11/02/17 05:04 White Blood Count 10.9 TH/MM3 (4.0-11.0) Red Blood Count 4.37 MIL/MM3 (4.50-5.90) Hemoglobin 13.0 GM/DL (13.0-17.0) Hematocrit 40.0 % (39.0-51.0) Mean Corpuscular Volume 91.7 FL (80.0-100.0) Mean Corpuscular Hemoglobin 29.7 PG (27.0-34.0) Mean Corpuscular Hemoglobin Concent 32.4 % (32.0-36.0) Red Cell Distribution Width 14.6 % (11.6-17.2) Platelet Count 180 TH/MM3 (150-450) Mean Platelet Volume 9.4 FL (7.0-11.0) Neutrophils (%) (Auto) 89.8 % (16.0-70.0) Lymphocytes (%) (Auto) 5.6 % (9.0-44.0) Monocytes (%) (Auto) 4.5 % (0.0-8.0) Eosinophils (%) (Auto) 0.0 % (0.0-4.0) Basophils (%) (Auto) 0.1 % (0.0-2.0) Neutrophils # (Auto) 9.8 TH/MM3 (1.8-7.7) Lymphocytes # (Auto) 0.6 TH/MM3 (1.0-4.8) Monocytes # (Auto) 0.5 TH/MM3 (0-0.9) Eosinophils # (Auto) 0.0 TH/MM3 (0-0.4) Basophils # (Auto) 0.0 TH/MM3 (0-0.2) CBC Comment DIFF FINAL Differential Comment Blood Urea Nitrogen 78 MG/DL (7-18) Creatinine 1.58 MG/DL (0.60-1.30) Random Glucose 190 MG/DL (74-106) Total Protein 6.5 GM/DL (6.4-8.2) Albumin 2.8 GM/DL (3.4-5.0) Calcium Level 9.0 MG/DL (8.5-10.1) Phosphorus Level 2.0 MG/DL (2.5-4.9) Magnesium Level 2.6 MG/DL (1.5-2.5) Alkaline Phosphatase 58 U/L (45-117) Aspartate Amino Transf (AST/SGOT) 9 U/L (15-37) Alanine Aminotransferase (ALT/SGPT) 16 U/L (12-78) Total Bilirubin 0.3 MG/DL (0.2-1.0) Sodium Level 156 MEQ/L (136-145) Potassium Level 4.2 MEQ/L (3.5-5.1) Chloride Level 116 MEQ/L (98-107) Carbon Dioxide Level 34.8 MEQ/L (21.0-32.0) Anion Gap 5 MEQ/L (5-15) Estimat Glomerular Filtration Rate 44 ML/MIN (>89) Blood Gas Puncture Site RT RADIAL Blood Gas Patient Temperature 98.6 Blood Gas HCO3 35 mmol/L (22-26) Blood Gas Base Excess 8.6 mmol/L (-2-2) Blood Gas Oxygen Saturation 94 % (90-100) Arterial Blood pH 7.34 (7.380-7.420) Arterial Blood Partial Pressure CO2 67 mmHg (38-42) Arterial Blood Partial Pressure O2 95 mmHg (61-120) Arterial Blood Oxygen Content 16.8 Vol % (12.0-20.0) Arterial Blood Carboxyhemoglobin 0.7 % (0-4) Arterial Blood Methemoglobin 1.7 % (0-2) Blood Gas Hemoglobin 12.6 G/DL (12.0-16.0) Oxygen Delivery Device BIPAP 20/+5/ Blood Gas Inspired Oxygen 50 % Result Diagram: 11/02/17 0341 11/02/17 0341 Microbiology Microbiology Date/Time Source Procedure Growth Status 10/30/17 13:55 Blood Peripheral Aerobic Blood Culture - Preliminary NO GROWTH IN 3 DAYS Resulted 10/30/17 13:55 Blood Peripheral Anaerobic Blood Culture - Preliminary NO GROWTH IN 3 DAYS Resulted Imaging . Last Impressions Chest X-Ray 11/02/17 0000 Signed Impressions: Service Date/Time: Thursday, November 02, 2017 13:11 - CONCLUSION: Stable chest x-ray. No acute abnormality is identified. There is stable enlargement of the cardiac silhouette. Andrae Maldonado MD Abdomen X-Ray 10/31/17 0000 Signed Impressions: Service Date/Time: Tuesday, October 31, 2017 06:56 - CONCLUSION: 1. Left femoral vein catheter with the tip overlying the left pelvis in the expected region of the external iliac vein. 2. NG tube in the upper stomach. 3. Bibasilar areas of consolidation or atelectasis. Andrae Burgess MD Renal Ultrasound 10/30/17 0000 Signed Impressions: Service Date/Time: Monday, October 30, 2017 23:32 - CONCLUSION: 1. Both kidneys are sonographically normal. 2. Bladder is decompressed. Talon May MD Procedures 10/31: Dialysis catheter placement Left femoral vein. Assessment and Plan Disease Oriented Problem List: (1) Diabetes (2) Dyslipidemia (3) Hyperkalemia (4) Respiratory failure (5) Altered mental status (6) Acute on chronic renal failure Symptom Scale: (1) Dyspnea and respiratory abnormalities 0-10 Scale: 9 (On BiPAP, borderline oxygen saturation.) (2) Altered mental status 0-10 Scale: 7 (Intermittently agitated and following commands.) Pertinent Non-Medical Issues Psychosocial: Spiritual: Legal: Ethical issues impacting care: Important Contacts Daughter: Mercy Monroe Daughter: Helen Salcido . Prognosis His prognosis is guarded. He has severe COPD and is not tolerating being off BiPAP due to hypercarbia and hypoxia. He has been intubated twice in the past and was actually withdrawn from the ventilator and survived. He is declining any further intubation and would prefer medication for his symptoms, with full knowledge that it will likely allow him to , but do so and comfort. Per his daughter this is at least his seventh COPD exacerbation in the last few years and he is having more recurrent decline and hospitalizations. He is likely to continue to suffer complications and decline due to his severe lung compromise, now coupled with acute kidney failure requiring hemodialysis for hyperkalemia. His condition remains critical and guarded. . Code Status: No Code Plan PLAN: Legal decision maker: Patient is not capacitated to make his own decisions at this time. He has named his daughter Alix as his healthcare decision maker, supported by his daughter Gemma, who is the alternate healthcare surrogate and his daughter Mercy. All 3 daughters are working together. Goals: Aggressive short of resuscitation. CODE STATUS: DNR SYMPTOMS: * Dyspnea: Patient remains dyspneic on BiPAP, altered mental status, hypercarbic , agitated. His daughter Alix, who is the healthcare surrogate, is requesting to transfer her to comfort measures only, medicate him for agitation , air hunger, anxiety and pain and make him comfortable. She requests removal of the BiPAP mask as soon as medications have been administered for his comfort. She and her sister are in route to [place] and are scheduled to arrive at 9 PM. They are aware that he may pass prior to their arrival, however their father's comfort is of primary concern to them and they accept that possibility. Ativan and morphine have been ordered for symptoms of dyspnea , anxiety, air hunger and pain. * Altered mental status: Remains altered in spite of improving blood gases. Family is requesting withdrawal of BiPAP support and allowing patient to past comfortably if that is his natural course. * Pain: Patient has a long history of chronic pain for which he has been chronically treated with morphine and hydrocodone. He has had a multitude of epidural shots and was scheduled to consider neurosurgery, however has suffered a respiratory compromise from his severe COPD and appears unlikely to be able to complete that. Pain will be managed with intravenous morphine on both a scheduled and an as-needed basis for comfort. * Agitation: Patient remains agitated, in spite of Precedex today. As he became bradycardic on levels of Precedex which would control his agitation, Precedex was weaned to try to balance side effects. At this time, as his family wishes him to be converted to comfort measures, Ativan and morphine have been ordered per withdrawal protocol and Precedex will be discontinued. . Palliative care will continue to follow the patient during hospital course as condition evolves, to assist patient/decision-maker with understanding of their medical conditions, weighing benefits/burdens of treatment options, for clarification of goals of treatment. Additionally will assist with any symptoms of palliative concern. . Attestation To help prompt me to consider important information that might be impacting today's encounter and assessment, information from prior notes written by myself or my colleagues may have been "brought forward" into today's note. My signature on this note, however, is an attestation that I personally performed the exam, history, and/or decision-making noted today, and, unless otherwise indicated, the interactions with patient, family, and staff as well as the review of records all occurred today. I also attest that the listed assessment and stated plan reflect my best clinical judgment today based on the combination of historical information, prior notes, and today's exam/ interactions. When time spent is documented, it refers only to time spent today by the signer, or if indicated, combined time spent today by collaborating physician/nurse practitioner. . Cece Betancur November 02, 2017 3:23 pm
[2017-11-02] MEDS ORDERED: GLYCOPYRROLATE 0.4 MG/2 ML VIAL IV PUSH ONE (16:45)
[2017-11-02] MEDS: MORPHINE SULFATE 4 MG/ML INJ IV PUSH SCH ×3 (17:12→22:07)
[2017-11-02] MEDS: AZITHROMYCIN INJ 500 MG in SODIUM CHLOR 0.9% 250 ML INJ 250 ML IV SCH (17:53)
[2017-11-02] MEDS: LORazepam 2 MG/ML VIAL IV PUSH SCH ×3 (18:24→22:07)
[2017-11-02] MEDS: cefTRIAXone INJ 1,000 MG in SODIUM CHLORIDE 0.9% INJ 100 ML IV SCH ×2 (20:19→20:21)
[2017-11-02] MEDS: MORPHINE SULFATE 4 MG/ML INJ IV PUSH PRN (22:59)
[2017-11-02] MEDS: LORazepam 2 MG/ML VIAL IV PUSH PRN (23:08)
[2017-11-03] VITALS: BP 167/77; PULSE 117; RESP 27; TEMP 99.4; O2SAT 91
[2017-11-03] MEDS: LORazepam 2 MG/ML VIAL IV PUSH PRN (00:17)
[2017-11-03] MEDS: MORPHINE SULFATE 4 MG/ML INJ IV PUSH PRN (00:17)
[2017-11-03] MEDS: RESP: ALBUTEROL 2.5 MG/IPRATROPIUM 0.5 MG NEB (SCH) INH (00:30)
--- NOTE | 2017-11-04 06:07 | HHI.DS ---
Summary Note Date of : November 03, 2017 Time Of : 0118 Admission Date Oct 30, 2017 at 16:48 Admitting Diagnosis Acute resp failure, acute on chronic RF, hyperkalemia Diagnosis at Time of : Brief History 62-year-old gentleman with history of COPD on home O2, congestive heart failure , hypertension, CAD, spinal stenosis now now brought to the emergency room with altered mental status and respiratory distress. Patient presented on October 27 to [facility] emergency with worsening shortness of breath. He was found to have acute COPD exacerbation but patient declined admission. He was treated with prednisone and azithromycin and bronchodilators and he was discharged home. Over the last few days patient had worsening shortness of breath associated with cough and since yesterday patient became increasingly lethargic. Over the night patient became very poorly responsive therefore today daughter called EVAC patient was brought to the emergency room. On ED arrival patient was unresponsive. Blood gas done showed severe respiratory acidosis. Moreover, patient was found to have acute hyperkalemia and acute kidney injury, potassium up to 7.5. Patient was treated with Solu-Medrol, DuoNeb, insulin and dextrose, Kayexalate, calcium gluconate and bicarbonate. Stat consult for nephrology was placed in ED physician is waiting for callback. [facility] was consulted for ICU admission. Patient was not intubated because he has a standing DNR. Patient was immediately seen in the emergency room, daughter present at bedside. Patient is on BiPAP, arousable, following some commands. Per daughter, patient has a standing DNR/DNI and her sister who has POA was contacted by emergency room physician to complete the DNR form. CBC/BMP: 11/02/17 0341 11/02/17 0341 Significant Findings Laboratory Tests Test 11/01/17 17:20 11/02/17 03:41 11/02/17 05:04 Blood Gas HCO3 34 mmol/L (22-26) 35 mmol/L (22-26) Blood Gas Base Excess 7.7 mmol/L (-2-2) 8.6 mmol/L (-2-2) Arterial Blood pH 7.29 (7.380-7.420) 7.34 (7.380-7.420) Arterial Blood Partial Pressure CO2 73 mmHg (38-42) 67 mmHg (38-42) Arterial Blood Partial Pressure O2 204 mmHg (61-120) Red Blood Count 4.37 MIL/MM3 (4.50-5.90) Neutrophils (%) (Auto) 89.8 % (16.0-70.0) Lymphocytes (%) (Auto) 5.6 % (9.0-44.0) Neutrophils # (Auto) 9.8 TH/MM3 (1.8-7.7) Lymphocytes # (Auto) 0.6 TH/MM3 (1.0-4.8) Blood Urea Nitrogen 78 MG/DL (7-18) Creatinine 1.58 MG/DL (0.60-1.30) Random Glucose 190 MG/DL (74-106) Albumin 2.8 GM/DL (3.4-5.0) Phosphorus Level 2.0 MG/DL (2.5-4.9) Magnesium Level 2.6 MG/DL (1.5-2.5) Aspartate Amino Transf (AST/SGOT) 9 U/L (15-37) Sodium Level 156 MEQ/L (136-145) Chloride Level 116 MEQ/L (98-107) Carbon Dioxide Level 34.8 MEQ/L (21.0-32.0) Estimat Glomerular Filtration Rate 44 ML/MIN (>89) Imaging Last Impressions Abdomen X-Ray 10/31/17 0000 Signed Impressions: Service Date/Time: Tuesday, October 31, 2017 06:56 - CONCLUSION: 1. Left femoral vein catheter with the tip overlying the left pelvis in the expected region of the external iliac vein. 2. NG tube in the upper stomach. 3. Bibasilar areas of consolidation or atelectasis. Andrae Burgess MD Chest X-Ray [id number]/[id number] Signed Impressions: Service Date/Time: Monday, October 30, 2017 13:49 - CONCLUSION: Cardiomegaly. Andrae Burgess MD Renal Ultrasound 10/30/17 0000 Signed Impressions: Service Date/Time: Monday, October 30, 2017 23:32 - CONCLUSION: 1. Both kidneys are sonographically normal. 2. Bladder is decompressed. Talon May MD Last Impressions Chest X-Ray 10/30/17 1345 Signed Impressions: Service Date/Time: Monday, October 30, 2017 13:49 - CONCLUSION: Cardiomegaly. Andrae Burgess MD Hospital Course Remarks/Hospital Course 4/29: 62-year-old gentleman with history of COPD on home O2, congestive heart failure, hypertension, CAD, spinal stenosis now now brought to the emergency room with altered mental status and respiratory distress. Patient presented on October 27 to [facility] emergency with worsening shortness of breath. He was found to have acute COPD exacerbation but patient declined admission. He was treated with prednisone and azithromycin and bronchodilators and he was discharged home. Over the last few days patient had worsening shortness of breath associated with cough and since yesterday patient became increasingly lethargic. Over the night patient became very poorly responsive therefore today daughter called EVAC patient was brought to the emergency room. On ED arrival patient was unresponsive. Blood gas done showed severe respiratory acidosis. Moreover, patient was found to have acute hyperkalemia and acute kidney injury, potassium up to 7.5. Patient was treated with Solu- Medrol, DuoNeb, insulin and dextrose, Kayexalate, calcium gluconate and bicarbonate. Stat consult for nephrology was placed in ED physician is waiting for callback. [facility] was consulted for ICU admission. Patient was not intubated because he has a standing DNR. Patient was immediately seen in the emergency room, daughter present at bedside. Patient is on BiPAP, arousable, following some commands. Per daughter, patient has a standing DNR/DNI and her sister who has POA was contacted by emergency room physician to complete the DNR form. 10/31: Over the night the patient was transitioned to facemask with subsequent worsening and hypercapnia, then placed back on BiPAP. Currently patient on BiPAP 15/5 at 55% O2. Patient is arousable but does not follow commands. Due to elevated potassium despite medical measures and HD catheter was placed and patient will undergo emergent hemodialysis. 11/01: Late entry note. Patient seen at 11:15 AM. Overnight the patient was noted to have progressive alteration in mental status, pulling out IVs. Patient was transitioned onto Precedex with family at bedside. Patient continues on BiPAP. 11/02: Patient on Precedex drip heart rate noted to be 30s-40s with systolic blood pressure in the 150s. Hydralazine given for hypertension 1 dose 10 mg. The patient continues to have altered mental status pulling on lines, incomprehensible sounds. Precedex discontinued. Ativan 1 mg IV 1 dose provided. Patient continues on BiPAP discussed with palliative care teamcenter solution architect Mrs. Betancur, post family conference with the 2 daughters they are to arrive tomorrow with tentative plan for transitioning to comfort care measures, with placement of nonrebreather mask and possibly hospice, to be determined upon their arrival. 3: With comfort care measures instituted and in place at the request of the POA and the patients 3 daughters at bedside, the patient at 0118. Dior Nix MD November 04, 2017 06:07
== END 2017-11-03 01:18 | disposition expired | DRG 189 ==
LOC: NEPE 13:42 → NEDA 16:48 → HIMW 19:00
PROVIDERS: ADMIT Internal Medicine Critical Care Medicine; ATTEND Internal Medicine Critical Care Medicine
PROC: 5A09457 Assistance with Respiratory Ventilation, 24-96 Consecutive Hours, Continuous Positive Airway Pressure (ICD-10-PCS; principal; 2017-10-30)
PROC: 0T9B70Z Drainage of Bladder with Drainage Device, Via Natural or Artificial Opening (ICD-10-PCS; 2017-10-30)
PROC: 5A1D70Z Performance of Urinary Filtration, Intermittent, Less than 6 Hours Per Day (ICD-10-PCS; 2017-10-31)
PROC: 06HG33Z Insertion of Infusion Device into Left External Iliac Vein, Percutaneous Approach (ICD-10-PCS; 2017-10-31)
DX: J96.22 Acute and chronic respiratory failure with hypercapnia (principal); E87.0 Hyperosmolality and hypernatremia; N17.9 Acute kidney failure, unspecified; I13.0 Hypertensive heart and chronic kidney disease with heart failure and stage 1 through stage 4 chronic kidney disease, or unspecified chronic kidney disease; E87.2 Acidosis; N18.4 Chronic kidney disease, stage 4 (severe); I50.9 Heart failure, unspecified; J44.1 Chronic obstructive pulmonary disease with (acute) exacerbation; E11.22 Type 2 diabetes mellitus with diabetic chronic kidney disease; E87.5 Hyperkalemia; I25.10 Atherosclerotic heart disease of native coronary artery without angina pectoris; M48.00 Spinal stenosis, site unspecified; G89.29 Other chronic pain; R00.1 Bradycardia, unspecified; E78.5 Hyperlipidemia, unspecified; F17.210 Nicotine dependence, cigarettes, uncomplicated; Z96.653 Presence of artificial knee joint, bilateral; Z99.81 Dependence on supplemental oxygen; Z95.5 Presence of coronary angioplasty implant and graft; Z79.891 Long term (current) use of opiate analgesic; Z79.84 Long term (current) use of oral hypoglycemic drugs; Z51.5 Encounter for palliative care; Z66 Do not resuscitate
CPT/HCPCS: 36556; 36600; 71045; 74018; 76775; 80048; 80053; 80074; 81001; 82570; 82805; 83605; 83735; 83880; 84100; 84132; 84300; 84484; 85007; 85025; 85027; 87040; 87641; 90935; 93005; 94002; 94003; 94640; 94664; 96374; J0360; J0456; J0696; J1644; J1815; J1940; J2060; J2270; J2920; J2930; J7030; J7050; J7070